=== PATIENT | female | born 1995 | race Caucasian/White ===

== ENCOUNTER → 2017-10-16 15:21 | Outpatient (CLI) | payer OTHER, SELFPAY ==
--- NOTE | 2017-10-16 15:28 | US_ITS ---
US transvaginal HISTORY: ITS.REASON: AMENORRHEA ORDERING PHYSICIAN: Luciano Faith MD PATIENT AGE: 22 years Comparison: None FINDINGS: UTERUS: The uterus measures 7 x 2.7 x 4.2 cm. Combined endometrial thickness is 3 mm. The uterus has an unremarkable appearance RIGHT OVARY: Right ovary measures 3.4 x 2.6 cm and contains a 2.7 x 1.5 cm cyst and other small follicles LEFT OVARY: The left ovary measures 3.4 x 1.6 cm and contains a couple small follicles. CUL-DE-SAC FLUID: No cul-de-sac fluid apparent OTHER FINDINGS: None IMPRESSION: 1. 2.7 cm right ovarian cyst with other small bilateral ovarian follicles. 2. Otherwise negative pelvic ultrasound
== END ==
PROVIDERS: Family Provider Internal Medicine Adolescent Medicine; PCP Internal Medicine Adolescent Medicine; Referring Provider Internal Medicine Adolescent Medicine; Visit Provider Internal Medicine Adolescent Medicine
DX: N91.2 Amenorrhea, unspecified (principal)
CPT/HCPCS: 76830

== ENCOUNTER → 2020-04-23 17:12 | Outpatient (CLI) | payer OTHER, SELFPAY ==
[2020-04-23 18:31] LABS: HCG,Quantitative 18 mIU/ml (0-5.42)
== END ==
PROVIDERS: Visit Provider Nurse Practitioner Family
DX: N91.2 Amenorrhea, unspecified (principal)
CPT/HCPCS: 36415; 84702

== ENCOUNTER → 2020-04-27 15:14 | Outpatient (CLI) | payer OTHER, SELFPAY ==
[2020-04-27 17:22] LABS: HCG,Quantitative 258 mIU/ml (0-5.42)
== END ==
PROVIDERS: Visit Provider Nurse Practitioner Family
DX: Z32.01 Encounter for pregnancy test, result positive (principal)
CPT/HCPCS: 36415; 84702

== ENCOUNTER → 2020-05-20 16:38 | Outpatient (CLI) | payer OTHER, SELFPAY ==
[2020-05-20 17:33] LABS: Basophils # 0.1 K/mm3 (0-0.2); Basophils % 0.4 % (0.1-2.0); Eosinophils # 0.1 K/mm3 (0.0-0.4); Eosinophils % 0.8 % (0.1-12.0); Hematocrit 42.2 % (37.0-47.0); Hemoglobin 13.5 g/dL (12.2-16.2); Lymphocytes # 3.6 K/mm3 (0.7-4.5); Lymphocytes % 28.1 % (10-50); Mean Corpuscular HGB Conc 31.8 g/dL (31.8-35.4); Mean Corpuscular Hemoglobin 28.9 pg (27.0-31.2); Mean Corpuscular Volume 90.7 fl (81-99); Mean Platelet Volume 8.5 fl (7.4-10.4); Monocytes # 0.5 K/mm3 (0.1-1.0); Neutrophils # 8.5 K/mm3 (1.8-7.8); Neutrophils % 66.6 % (37.0-80.0); Platelet Count 268 K/mm3 (142-424); Red Blood Count 4.66 M/mm3 (4.20-5.40); Red Cell Distribution Width 13.4 % (11.5-17.5); White Blood Count 12.8 K/mm3 (4.8-10.8)
[2020-05-22 10:04] LABS: HIV Screen 4th Generation wRfx Non Reactive (Non Reactive)
[2020-05-22 12:46] LABS: Hepatitis B Surface Antigen Negative (Negative); Hepatitis C Antibody <0.1 s/co ratio (0.0-0.9); Rapid Plasma Reagin Ab Titer Non Reactive (NonRea<1:1); Rubella Antibodies, IgG 6.58 index (Immune >0.99)
== END ==
PROVIDERS: Visit Provider Nurse Practitioner Obstetrics & Gynecology
DX: Z34.90 Encounter for supervision of normal pregnancy, unspecified, unspecified trimester (principal)
CPT/HCPCS: 36415; 85025; 86592; 86703; 86762; 86850; 87340; 87380; G0432

== ENCOUNTER → 2020-05-22 12:32 | Outpatient (CLI) | payer OTHER, SELFPAY ==
--- NOTE | 2020-05-22 12:33 | US_ITS ---
PROCEDURE: US OB <= 14 WEEKS FETUS CLINICAL INDICATION: for dates Early Ob ultrasound for dates COMPARISON: No exams were available for comparison FINDINGS: An intrauterine gestational sac is present with a pole with a crown-rump length of 1.31 cm correlating to gestational age of 7 weeks 4 days. heart tones are present with an FHR of 150 BPM. Yolk sac is noted. IMPRESSION: Live IUP at 7 weeks 4 days Estimated due date by Ultrasound is 01/04/2021 Dictated by: Clayton Woods MD 05/22/2020 14:43 Clayton Woods MD in [place] 05/22/2020 14:43
== END ==
PROVIDERS: PCP Internal Medicine Adolescent Medicine; Visit Provider Nurse Practitioner Obstetrics & Gynecology
DX: Z34.90 Encounter for supervision of normal pregnancy, unspecified, unspecified trimester (principal)
CPT/HCPCS: 76801

== ENCOUNTER 2020-07-10 16:02 | Emergency (ER) | payer OTHER, SELFPAY ==
[2020-07-10 16:05] VITALS: BP 141/105; PULSE 84; RESP 16; TEMP 37; O2SAT 98; BMI 33.6
--- NOTE | 2020-07-10 16:21 | HMH.EDUTC ---
[facility] [place] Clinical Impression: Otitis media Qualifiers: Otitis media type: suppurative Chronicity: acute Laterality: bilateral Recurrence: non-recurrent Spontaneous tympanic membrane rupture: without spontaneous rupture Qualified Code(s): H66.003 - Acute suppurative otitis media without spontaneous rupture of ear drum, bilateral Disposition: Home, Self-Care Condition on Discharge: Good Instructions: DI for Otitis Media (Middle Ear Infection)-Child Prescriptions: Fluticasone Propionate [Flonase Allergy Relief NS] 1 spray NS BID 10 Days #1 bot Transmission Status: Pending to [facility] Cefdinir [Omnicef 300mg Capsule] 300 mg PO BID #20 cap Transmission Status: Pending to [facility] Pseudoephedrine HCl [Sudafed 12 Hour 120mg Tab] 1 tab PO BID 5 Days #10 tab Transmission Status: Pending to [facility] Referrals: Yue Navarro APRN [Primary Care Provider] - Time of Disposition: 16:24 Medical Decision Making - Isaac Inquiry Pt receiving controlled substance: No Vital Signs: 07/10/20 16:05 Temperature 98.6 F Temperature Source Oral Pulse Rate [Left Brachial] 84 Respiratory Rate 16 Blood Pressure [Left Arm] 141/105 H Blood Pressure Mean [Left Arm] 117 Blood Pressure Source [Left Arm] Automatic Cuff Blood Pressure Position [Left Arm] Sitting 02 Sat by Pulse Oximetry 98 Oxygen Delivery Method Room Air [facility] [place] - General Stated complaint: both ears pain Time Seen by Provider: 07/10/20 16:21 Mode of Arrival: Ambulatory Source of Information: Patient Limitations: No Limitations Description of Symptoms (Recalled from Triage Doc. by RN): PATIENT C/O BILATERAL EAR PAIN SINCE LAST WEEK HEENT Symptoms (Recalled from RN notes): Yes Resp Symptoms (Recalled from RN notes): No Skin Symptoms (Recalled from RN notes): No MS Symptoms (Recalled from RN notes): No Functional Status (Recalled from RN notes): WNL - History of Present Illness Provider Complaint: Bilateral ear pain X 1 week. No fever. 14 weeks Onset (ago): week(s) (1) Relieving factors: none Exacerbating factors: none Treatments prior to arrival: none - Related Data Home Medications Medication Instructions Recorded Confirmed Loratadine [Claritin 10mg 10 mg PO DAILY 08/30/18 06/16/20 Tablet] vits no.126-ferrous fum 1 tab PO tab 05/19/20 06/16/20 28 mg iron-folic acid 800 mcg tablet sertraline 25 mg tablet 25 mg PO tab 05/19/20 06/16/20 Previous Rx's Medication Instructions Recorded Cefdinir [Omnicef 300mg Capsule] 300 mg PO BID #20 cap 07/10/20 Fluticasone Propionate [Flonase 1 spray NS BID 10 Days #1 bot 07/10/20 Allergy Relief NS] Pseudoephedrine HCl [Sudafed 12 1 tab PO BID 5 Days #10 tab 07/10/20 Hour 120mg Tab] Allergies Allergy/AdvReac Type Severity Reaction Status Date / Time Penicillins Allergy Mild Verified 06/16/20 09:54 - Worker's Comp Is this a Worker's Comp case?: No [facility] History - Hepatitis A Screen Drug use history?: No High risk sexual behaviors?: No History of sexually transmitted infection?: No Currently employed?: No Childcare worker?: No Do you have indoor plumbing?: Yes Do you have electricity?: Yes Attestation statement:: This patient has been screened for Hepatitis A risk factors. I have reviewed the patient's past medical history: Yes 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: Denies:: Cancer, Diabetes Mellitus Type 1, Diabetes Mellitus Type 2, MRSA Laterality Cases: Right: Other Amputation: No Fractures: Yes (RIGHT ANKLE) Comment: Sx on (L) ankle,2004, 2 screws and a plate. fluid drained from brain as a - Social History Smoking Status: Never smoker Alcohol Intake: never Occupational Status: other Family Hx:: Diabetes ROS Obtained: Yes All systems reviewed & no additional complaints - ENT Ears, Nose, Mouth, and Throat: Reports otalgia Physical Exam - General General appearance: alert, in no apparent distress
[2020-07-10 16:26] VITALS: BP 141/101; PULSE 77; RESP 19; TEMP 36.7; O2SAT 99
== END 2020-07-10 16:26 | disposition home or self-care (01) ==
PROVIDERS: Emergency Provider Physician Assistant; PCP Nurse Practitioner Family
DX: H66.003 Acute suppurative otitis media without spontaneous rupture of ear drum, bilateral (principal); Z3A.14 14 weeks gestation of pregnancy
CPT/HCPCS: 99202; G0463

== ENCOUNTER → 2020-08-14 13:38 | Outpatient (CLI) | payer OTHER, SELFPAY ==
--- NOTE | 2020-08-14 13:38 | US_ITS ---
PROCEDURE: US OB /MATERNAL DETAIL CLINICAL INDICATION: US OB COMPLETE-Anatomy Scan COMPARISON: US US OB <= 14 WEEKS FETUS from 05/22/2020 FINDINGS: There is a single live fetus present in breech presentation. heart and body motion is noted. The cervix is closed and measures 4 cm in length. The placenta is anterior and grade 1. Complete survey performed and was unremarkable on the submitted images as in PACS. No discrete anomalies identified on survey imaging by technologist. Active fetus. Three-vessel cord with satisfactory umbilical cord insertion. 4- chamber heart noted. Survey of brain & ventricles Unremarkable. Face and neck survey unremarkable. Diaphragm and chest views unremarkable. Abdomen: Both kidneys noted and unremarkable. Stomach noted and satisfactory. Spine: Survey of the spine satisfactory with no anomalies identified nor imaged. Both arms and legs noted. Amniotic Fluid: Adequate. Maternal adnexa: No significant findings. Measurements: Average ultrasound age 19weeks 5days. Gestational Age 20weeks 2days Estimated due date by ultrasound age 0801/03/2021. Estimated weight 314g BPD = 19weeks 6days OFD = 19weeks HC = 18weeks 4days AC = 20weeks 1day FL = 19weeks 6days Growth Percentile= 21Percent% Heart Rate = 150bpm Cerebellum = 20weeks Humerus = 19weeks 6days HC/AC is 1.06 CI is 0.85 FL/BPD is 0.69 FL/AC is 0.21 IMPRESSION: Live IUP in breech presentation with an average ultrasound age 19 weeks and 5 days. No obvious anomalies. Please see above for detail Dictated by: Clayton Woods MD 08/15/2020 13:04 Clayton Woods MD in [place] 08/15/2020 13:04
== END ==
PROVIDERS: PCP Nurse Practitioner Family; Visit Provider Nurse Practitioner Obstetrics & Gynecology
DX: Z36.0 Encounter for antenatal screening for chromosomal anomalies (principal)
CPT/HCPCS: 76811

== ENCOUNTER 2020-08-19 16:45 | Emergency (ER) | payer OTHER, SELFPAY ==
[2020-08-19 16:45] VITALS: BP 124/64; PULSE 94; RESP 20; TEMP 36.8; O2SAT 98; BMI 34.3
--- NOTE | 2020-08-19 16:58 | HMH.EDUTC ---
[facility] [place] Clinical Impression: Left otitis media Qualifiers: Otitis media type: suppurative Chronicity: acute Recurrence: non-recurrent Spontaneous tympanic membrane rupture: without spontaneous rupture Qualified Code(s): H66.002 - Acute suppurative otitis media without spontaneous rupture of ear drum, left ear Disposition: Home, Self-Care Condition on Discharge: Good Instructions: Middle Ear Infection Additional Instructions: Drink plenty of fluids. Take tylenol or ibuprofen for pain or fever. Take the medications as directed. Follow up with your regular doctor. GO TO THE ER FOR ANY WORSENING SYMPTOMS Prescriptions: predniSONE [Deltasone 10mg tablet] 10 mg PO BID 3 Days #6 tab Transmission Status: Received by [facility] Cefdinir [Omnicef 300mg Capsule] 300 mg PO BID #20 cap Transmission Status: Received by [facility] Referrals: Yue Navarro APRN [Primary Care Provider] - Time of Disposition: 17:26 Medical Decision Making - Medical Records Medical records reviewed: No: I reviewed the patient's medical records. - Isaac Inquiry Pt receiving controlled substance: No Vital Signs: 08/19/20 16:45 08/19/20 17:27 Temperature 98.3 F 98.3 F Temperature Source Oral Pulse Rate 94 H Pulse Rate [Left Brachial] 94 H Respiratory Rate 20 20 Blood Pressure 124/64 Blood Pressure [Left Arm] 124/64 Blood Pressure Mean [Left Arm] 84 Blood Pressure Source [Left Arm] Automatic Cuff Blood Pressure Position [Left Arm] Sitting 02 Sat by Pulse Oximetry 98 Oxygen Delivery Method Room Air [facility] [place] HPI - General Stated complaint: ears Time Seen by Provider: 08/19/20 16:58 - History of Present Illness Provider Complaint: She states that for the past 2 days she has had left ear pain and sinus congestion. - Related Data Home Medications Medication Instructions Recorded Confirmed vits no.126-ferrous fum 1 tab PO DAILY tab 05/19/20 08/19/20 28 mg iron-folic acid 800 mcg tablet Previous Rx's Medication Instructions Recorded Cefdinir [Omnicef 300mg Capsule] 300 mg PO BID #20 cap 08/19/20 predniSONE [Deltasone 10mg tablet] 10 mg PO BID 3 Days #6 tab 08/19/20 Allergies Allergy/AdvReac Type Severity Reaction Status Date / Time Penicillins Allergy Mild Verified 08/18/20 09:52 [facility] History - Hepatitis A Screen Attestation statement:: This patient has been screened for Hepatitis A risk factors. I have reviewed the patient's past medical history: Yes 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: Denies:: Cancer, Diabetes Mellitus Type 1, Diabetes Mellitus Type 2, MRSA Laterality Cases: Right: Other Amputation: No Fractures: Yes (RIGHT ANKLE) Comment: Sx on (L) ankle,2004, 2 screws and a plate. fluid drained from brain as a - Social History Smoking Status: Never smoker Alcohol Intake: never Occupational Status: other Family Hx:: Diabetes ROS Obtained: Yes All systems reviewed & no additional complaints Physical Exam - General General appearance: alert, in no apparent distress - Head Head exam: atraumatic, normocephalic, normal inspection - Eye Eye exam: Present: normal appearance, PERRL, EOMI - ENT ENT exam: Present: mucous membranes moist, normal external ear exam - Expanded ENT Exam TM/Canal exam: Left TM: effusion, Bilateral TM: erythema, bulging Nose exam: Present: sinus tenderness Mouth exam: Present: normal external inspection Teeth exam: Present: normal inspection Throat exam: Present: tonsillar erythema. Absent: tonsillomegaly, tonsillar exudate, R peritonsillar mass, L peritonsillar mass, muffled voice - Neck Neck exam: Present: normal inspection, full ROM, trachea midline. Absent: meningismus, lymphadenopathy - Chest Chest inspection: Present: normal inspection, symmetric chest wall rise. Absent: tenderness - Respiratory Respiratory exam: Present: normal lung sounds bilaterally. Absent: respiratory distres
[2020-08-19 17:27] VITALS: BP 124/64; PULSE 94; RESP 20; TEMP 36.8; O2SAT 98
== END 2020-08-19 17:29 | disposition home or self-care (01) ==
PROVIDERS: Emergency Provider Nurse Practitioner Family; PCP Nurse Practitioner Family
DX: H66.002 Acute suppurative otitis media without spontaneous rupture of ear drum, left ear (principal); Z88.0 Allergy status to penicillin; Z3A.20 20 weeks gestation of pregnancy
CPT/HCPCS: 99202; G0463

== ENCOUNTER 2020-09-05 13:01 | Outpatient (CLI) | payer OTHER, SELFPAY ==
[2020-09-05 13:37] VITALS: BMI 34.3
[2020-09-05 13:38] VITALS: BP 119/90; PULSE 89; RESP 18; TEMP 36.9
[2020-09-05 13:47] LABS: Microscopic, Urine URINE MICROSCOPIC (MICROSCOPIC)
[2020-09-05 13:49] LABS: Appearance,Urine SL CLOUDY (Clear); Bilirubin,Urine Negative (Negative); Blood, Urine Negative (Negative); Color,Urine YELLOW (Yellow); Glucose,Urine (UA) Negative (Negative); Ketones,Urine Negative (Negative); Leukocyte Esterase,Urine 1+ (Negative); Nitrate,Urine Negative (Negative); Protein,Urine Negative (Negative); Urobilinogen,Urine 0.2 EU/dl (0.2)
[2020-09-05 13:58] LABS: Bacteria,Urine 1+ /lpf
[2020-09-05 14:00] LABS: Barbiturates Screen,Urine Negative ng/ml (<200)
[2020-09-05 14:01] LABS: Amphetamine/Metha Screen,Urine Negative ng/ml (<1000); Benzodiazepines Screen,Urine Negative ng/ml (<200)
[2020-09-05 14:02] LABS: Cannabinoid Screen,Urine Negative ng/ml (<50)
[2020-09-05 14:03] LABS: Cocaine Screen,Urine Negative ng/ml (<300); Methadone Screen,Urine Negative ng/ml (<300)
[2020-09-05 14:04] LABS: Opiate Screen,Urine Negative ng/ml (<300)
[2020-09-05 14:05] LABS: Phencyclidine Screen,Urine Negative ng/ml (<25)
[2020-09-05 14:06] VITALS: BMI 34.3
== END 2020-09-05 14:05 | disposition home or self-care (01) ==
LOC: OBOUT 13:02 → OB 13:04
PROVIDERS: PCP Nurse Practitioner Family; Visit Provider Obstetrics & Gynecology
DX: O36.8120 Decreased fetal movements, second trimester, not applicable or unspecified (principal); Z3A.22 22 weeks gestation of pregnancy
CPT/HCPCS: 59025; 80305; 81001; 87086; G0463

== ENCOUNTER 2020-09-05 14:09 | Emergency (ER) | payer OTHER, SELFPAY ==
[2020-09-05 14:10] VITALS: BP 124/87; PULSE 107; RESP 20; TEMP 37; O2SAT 99; BMI 34.2
--- NOTE | 2020-09-05 14:35 | HMH.EDUTC ---
[facility] [place] [facility] [place] Clinical Impression: Strep throat Disposition: Home, Self-Care Condition on Discharge: Good Instructions: DI for Strep Throat, Strep Throat, Cefdinir Additional Instructions: *Monitor Temp, Over the counter Motrin or Tylenol as directed/as needed Tylenol every 4 hours and Motrin every 6 hours (as long as your family doctor has told you that you can take it) for fever or pain. and straight to ER if unable to lower temp less than 101.0 after medication given *Warm salt water gargles may help to soothe the throat *Throat Lozenges *Warm fluids like tea with honey may help to soothe the throat *Sleep elevated *Humidifier/Vaporizer *If you did not take Penicillin shot or was unable to, start taking antibiotic immediately and make sure that you take it for the FULL length of time although you should start to feel better in 24-48 hours *change toothbrush and toothpaste 24-48 hours after starting to take antibiotics so you do not reinfect yourself Monitor Temp. Tylenol and/or Ibuprofen as needed. ER if fever is no less than 101 despite alternating Tylenol and Ibuprofen * Encourage fluids, water, Gatorade, powerade, pedialyte if infant/toddler/or child *Cold fluids, popsicles and ice cream may feel good on his throat Follow up IMMEDIATELY for new or worsening symptoms or no Noticeable improvement over the next 48-72 hours. 911 for difficulty breathing or swallowing Prescriptions: Cefdinir [Omnicef 300mg Capsule] 300 mg PO BID #20 cap Transmission Status: Pending to [facility] Referrals: Yue Navarro APRN [Primary Care Provider] - As needed Time of Disposition: 14:48 Medical Decision Making - Isaac Inquiry Pt receiving controlled substance: No Isaac was queried for this patient: No Vital Signs: 09/05/20 14:10 Temperature 98.6 F Temperature Source Oral Pulse Rate [Right Brachial] 107 H Respiratory Rate 20 Blood Pressure [Right Arm] 124/87 Blood Pressure Mean [Right Arm] 99 Blood Pressure Source [Right Arm] Automatic Cuff Blood Pressure Position [Right Arm] Sitting 02 Sat by Pulse Oximetry 99 Oxygen Delivery Method Room Air - Lab Data Lab results reviewed: Yes: I reviewed the patient's lab results. Medical Decision Narrative: Patient states that she has taken Cefdinir in the past without complications or reactions Medication verified safe during by pharmacy [facility] [place] [facility] [place] - General Stated complaint: ear pain Time Seen by Provider: 09/05/20 14:35 Mode of Arrival: Ambulatory Source of Information: Patient Limitations: No Limitations Description of Symptoms (Recalled from Triage Doc. by RN): PATIENT C/O BILATERAL EAR PAIN. STATES PAIN IS WORSE ON LEFT SIDE AND IS ALSO CAUSING HER THROAT TO HURT HEENT Symptoms (Recalled from RN notes): Yes Resp Symptoms (Recalled from RN notes): No Skin Symptoms (Recalled from RN notes): No MS Symptoms (Recalled from RN notes): No Functional Status (Recalled from RN notes): WNL - History of Present Illness Provider Complaint: Patient states that she is 22wks OB and has been having pain in her ears and worse on her left States that she seen her PCP yesterday and he looked at her ears and told her she had fluid but no infection States that pain is worse today and hurts into her throat when she swallows and wanted to get them looked at again - Related Data Previous Rx's Medication Instructions Recorded Cefdinir [Omnicef 300mg Capsule] 300 mg PO BID #20 cap 09/05/20 Allergies Allergy/AdvReac Type Severity Reaction Status Date / Time Penicillins Allergy Mild Verified 08/18/20 09:52 - Worker's Comp Is this a Worker's Comp case?: No [facility] History - Hepatitis A Screen Drug use history?: No High risk sexual behaviors?: No History of sexually transmitted infection?: No Currently employed?: No Childcare worker?: No Do you have indoor plumbing?: Yes Do you have electricity?: Yes Attestation statement:: This patient h
[2020-09-05 14:42] LABS: UTC Strep Screen (Rapid) Positive (Negative)
[2020-09-05 14:48] VITALS: BP 124/87; PULSE 107; RESP 20; TEMP 37; O2SAT 99
== END 2020-09-05 14:50 | disposition home or self-care (01) ==
PROVIDERS: Emergency Provider Nurse Practitioner; PCP Nurse Practitioner Family
DX: J02.0 Streptococcal pharyngitis (principal); Z3A.22 22 weeks gestation of pregnancy; Z88.0 Allergy status to penicillin
CPT/HCPCS: 87880; 99202; G0463

== ENCOUNTER → 2020-10-03 07:55 | Outpatient (CLI) | payer OTHER, SELFPAY ==
[2020-10-03 08:21] LABS: Glucose,Fasting 90 mg/dl (74-100)
[2020-10-03 09:37] LABS: Glucose 1 Hour 166 mg/dL (74-100)
== END ==
PROVIDERS: Visit Provider Nurse Practitioner Obstetrics & Gynecology
DX: Z34.90 Encounter for supervision of normal pregnancy, unspecified, unspecified trimester (principal)
CPT/HCPCS: 82951

== ENCOUNTER → 2020-10-17 07:06 | Outpatient (CLI) | payer OTHER, SELFPAY ==
[2020-10-17 08:27] LABS: Glucose,Fasting 89 mg/dl (74-100)
[2020-10-17 09:48] LABS: Glucose 1 Hour 190 mg/dL (74-100)
[2020-10-17 10:20] LABS: Glucose 2 Hour 223 mg/dL (74-100)
[2020-10-17 12:22] LABS: Glucose 3 Hour 118 mg/dL (74-100)
== END ==
PROVIDERS: Visit Provider Nurse Practitioner Obstetrics & Gynecology
DX: O99.814 Abnormal glucose complicating childbirth (principal); Z34.90 Encounter for supervision of normal pregnancy, unspecified, unspecified trimester
CPT/HCPCS: 82951

== ENCOUNTER 2020-10-23 19:21 | Outpatient (CLI) | payer OTHER, SELFPAY ==
[2020-10-23 19:35] VITALS: BMI 36.5
[2020-10-23 19:43] LABS: Microscopic, Urine URINE MICROSCOPIC (MICROSCOPIC)
[2020-10-23 19:44] LABS: Appearance,Urine CLOUDY (Clear); Bilirubin,Urine Negative (Negative); Blood, Urine Negative (Negative); Color,Urine YELLOW (Yellow); Glucose,Urine (UA) Negative (Negative); Ketones,Urine Negative (Negative); Leukocyte Esterase,Urine 1+ (Negative); Nitrate,Urine Negative (Negative); Protein,Urine Negative (Negative); Specific Gravity, Urine 1.025 (1.005-1.030); Urobilinogen,Urine 0.2 EU/dl (0.2)
[2020-10-23 19:52] VITALS: BP 142/94; PULSE 111; RESP 18; TEMP 36.7; O2SAT 98; BMI 36.5
[2020-10-23 19:55] LABS: Amorphous Sediment,Urine 1+ /lpf; Bacteria,Urine 2+ /lpf; Benzodiazepines Screen,Urine Negative ng/ml (<200)
[2020-10-23 19:56] LABS: Amphetamine/Metha Screen,Urine Negative ng/ml (<1000)
[2020-10-23 19:57] LABS: Barbiturates Screen,Urine Negative ng/ml (<200); Cannabinoid Screen,Urine Negative ng/ml (<50)
[2020-10-23 19:58] LABS: Cocaine Screen,Urine Negative ng/ml (<300); Methadone Screen,Urine Negative ng/ml (<300)
[2020-10-23 19:59] LABS: Opiate Screen,Urine Negative ng/ml (<300)
[2020-10-23 20:00] LABS: Phencyclidine Screen,Urine Negative ng/ml (<25)
== END 2020-10-23 20:36 | disposition home or self-care (01) ==
LOC: OBOUT 19:25 → OB 19:25
PROVIDERS: PCP Nurse Practitioner Obstetrics & Gynecology; Visit Provider Obstetrics & Gynecology
DX: O36.8130 Decreased fetal movements, third trimester, not applicable or unspecified (principal); Z3A.29 29 weeks gestation of pregnancy
CPT/HCPCS: 59025; 80305; 81001; 87086; G0463

== ENCOUNTER 2020-11-08 10:42 | Emergency (ER) | payer OTHER, SELFPAY ==
[2020-11-08 10:49] VITALS: BP 125/99; PULSE 119; RESP 12; TEMP 36.9; O2SAT 99; BMI 36.5
--- NOTE | 2020-11-08 11:04 | HMH.EDUTC ---
[facility] [place] Clinical Impression: Otitis media Qualifiers: Otitis media type: suppurative Chronicity: acute Laterality: bilateral Recurrence: non-recurrent Spontaneous tympanic membrane rupture: without spontaneous rupture Qualified Code(s): H66.003 - Acute suppurative otitis media without spontaneous rupture of ear drum, bilateral Sinusitis Qualifiers: Sinusitis location: unspecified location Chronicity: acute Recurrence: non-recurrent Qualified Code(s): J01.90 - Acute sinusitis, unspecified Disposition: Home, Self-Care Condition on Discharge: Good Instructions: Middle Ear Infection, DI for Sinusitis Additional Instructions: Drink plenty of fluids. Take tylenol or ibuprofen for pain or fever. Take the medications as directed. Follow up with your regular doctor. 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 Please call Dr. Arechiga's office and let them know how you are doing. GO TO THE ER FOR ANY WORSENING SYMPTOMS Prescriptions: Azithromycin [Z-Pb 250mg Tab*] 250 mg PO UD DOSE PK #6 tab Transmission Status: Received by [facility] Referrals: Yue Navarro APRN [Primary Care Provider] - Time of Disposition: 11:07 Medical Decision Making - Medical Records Medical records reviewed: No: I reviewed the patient's medical records. - Isaac Inquiry Pt receiving controlled substance: No Vital Signs: 11/08/20 10:49 11/08/20 11:13 Temperature 98.5 F 98.5 F Temperature Source Oral Pulse Rate 108 H Pulse Rate [Left] 119 H Respiratory Rate 12 14 Blood Pressure 127/93 H Blood Pressure [Right Arm] 125/99 H Blood Pressure Mean [Right Arm] 107 02 Sat by Pulse Oximetry 99 - Lab Data Lab results reviewed: Yes: I reviewed the patient's lab results. Lab Results 11/08/20 11:07: Strep Scn Rapid Clinic Negative Orders (Tests/Meds): ORDERS Category Date Time Status Strep Screen Confirmation Stat Micro 11/08/20 11:07 Received [facility] [place] - General Stated complaint: ear and throat pain Time Seen by Provider: 11/08/20 11:04 Mode of Arrival: Ambulatory Source of Information: Patient Limitations: No Limitations Description of Symptoms (Recalled from Triage Doc. by RN): pt c/o ear aches and a sore throat. HEENT Symptoms (Recalled from RN notes): Yes (sore throat and ear aches) Resp Symptoms (Recalled from RN notes): No Skin Symptoms (Recalled from RN notes): No MS Symptoms (Recalled from RN notes): No Functional Status (Recalled from RN notes): na - History of Present Illness Provider Complaint: She states that for the past 2 days she has been having bilateral pain and pressure. She has also had sinus congestion and post nasal drainage. She is 31 weeks . - Related Data Home Medications Medication Instructions Recorded Confirmed fluticasone propionate 50 2 spray INTRANASAL g 09/15/20 11/05/20 mcg/actuation nasal spray,suspension ferrous sulfate 325 mg (65 mg 325 mg PO DAILY 10/14/20 11/05/20 iron) tablet prenat.vits,david,[id number] 1 tab PO DAILY 10/14/20 11/05/20 blood-glucose meter See Rx Instructions .ROUTE 11/05/20 11/05/20 .MEDSUPPLY #1 each lancets 33 gauge See Rx Instructions .ROUTE 11/05/20 11/05/20 .MEDSUPPLY #100 each Previous Rx's Medication Instructions Recorded blood sugar diagnostic See Rx Instructions .ROUTE 10/27/20 .MEDSUPPLY #10 each blood-glucose meter See Rx Instructions .ROUTE 10/27/20 .MEDSUPPLY #1 each lancets 23 gauge See Rx Instructions .ROUTE 10/27/20 .MEDSUPPLY #25 each blood sugar diagnostic See Rx Instructions .ROUTE #100 11/05/20 each Azithromycin [Z-Pb 250mg Tab*] 250 mg PO UD DOSE PK #6 tab 11/08/20 Allergies Allergy/AdvReac Type Severity Reaction Status Date / Time Penicillins Allergy Mild Verified 10/14/20 10:11 - Worker's Comp Is this a Worker's Comp case?: No [facility] History - Hepatitis A Screen Drug use history?: No High risk sexual behaviors?: No History of sexually t
[2020-11-08 11:13] VITALS: BP 127/93; PULSE 108; RESP 14; TEMP 36.9
[2020-11-08 11:14] LABS: UTC Strep Screen (Rapid) Negative (Negative)
== END 2020-11-08 11:15 | disposition home or self-care (01) ==
PROVIDERS: Emergency Provider Nurse Practitioner Family; PCP Nurse Practitioner Family
DX: H66.003 Acute suppurative otitis media without spontaneous rupture of ear drum, bilateral (principal); J01.90 Acute sinusitis, unspecified; Z3A.31 31 weeks gestation of pregnancy
CPT/HCPCS: 87880; 99202; G0463

== ENCOUNTER → 2020-11-30 16:54 | Outpatient (CLI) | payer OTHER, SELFPAY | PROVIDERS: Visit Provider Nurse Practitioner Obstetrics & Gynecology | DX: Z34.90 Encounter for supervision of normal pregnancy, unspecified, unspecified trimester (principal); Z3A.35 35 weeks gestation of pregnancy | CPT/HCPCS: 86403 ==

== ENCOUNTER 2020-12-16 19:24 | Emergency (ER) | payer OTHER, SELFPAY ==
[2020-12-16 19:43] VITALS: BP 172/93; PULSE 119; RESP 22; TEMP 36.9; O2SAT 99; BMI 37.5
--- NOTE | 2020-12-16 20:33 | HMH.EDUTC ---
[facility] [place] Clinical Impression: Otitis media Qualifiers: Otitis media type: unspecified Laterality: left Qualified Code(s): H66.92 - Otitis media, unspecified, left ear Disposition: Home, Self-Care Condition on Discharge: Good Instructions: Cefdinir, Middle Ear Infection Additional Instructions: *Monitor Temp, Over the counter Tylenol as directed/as needed Tylenol every 4 hours (as long as your family doctor has told you that you can take it) for fever or pain. and straight to ER if unable to lower temp less than 101.0 after medication given *Take medication as prescribed *Sleep elevated *Humidifier/Vaporizer Follow up IMMEDIATELY for new or worsening symptoms or no Noticeable improvement over the next 48-72 hours. 911 for difficulty breathing or swallowing Prescriptions: Cefdinir [Omnicef 300mg Capsule] 300 mg PO BID #20 cap Transmission Status: Pending to [facility] Referrals: Yue Navarro APRN [Primary Care Provider] - As needed Medical Decision Making - Isaac Inquiry Pt receiving controlled substance: No Isaac was queried for this patient: No Vital Signs: 12/16/20 19:43 Temperature 98.5 F Temperature Source Oral Pulse Rate [Left] 119 H Respiratory Rate 22 Blood Pressure [Right Radial Artery] 172/93 H Blood Pressure Mean [Right Radial Artery] 119 02 Sat by Pulse Oximetry 99 Medical Decision Narrative: Medication discussed with pharmacy to make sure medication is baby safe [facility] [place]PI - General Stated complaint: ear pain in both ears Time Seen by Provider: 12/16/20 20:33 Mode of Arrival: Ambulatory Source of Information: Patient Limitations: No Limitations Description of Symptoms (Recalled from Triage Doc. by RN): pt c/o bilateral ear aches. pt is 37 wks and is scheduled for c/s Symptoms (Recalled from RN notes): Yes (bilateral ear aches) Resp Symptoms (Recalled from RN notes): No Skin Symptoms (Recalled from RN notes): No MS Symptoms (Recalled from RN notes): No Functional Status (Recalled from RN notes): na - History of Present Illness Provider Complaint: Patient states that she is scheduled for on Monday States that she has been having bilateral ear pain for over a week and it has continued to get worse States that tonight her ears was throbbing so she came in to get them checked - Related Data Home Medications Medication Instructions Recorded Confirmed fluticasone propionate 50 2 spray INTRANASAL g 09/15/20 12/15/20 mcg/actuation nasal spray,suspension ferrous sulfate 325 mg (65 mg 325 mg PO DAILY 10/14/20 12/15/20 iron) tablet prenat.vits,david,[id number] 1 tab PO DAILY 10/14/20 12/15/20 blood-glucose meter See Rx Instructions .ROUTE 11/05/20 12/15/20 .MEDSUPPLY #1 each lancets 33 gauge See Rx Instructions .ROUTE 11/05/20 12/15/20 .MEDSUPPLY #100 each metformin 500 mg tablet 500 mg PO tab 11/19/20 12/15/20 acetone (urine) test See Rx Instructions .ROUTE 12/03/20 12/15/20 .MEDSUPPLY #25 each insulin detemir U-100 100 unit/mL ml SQ 12/03/20 12/15/20 (3 mL) subcutaneous pen pen needle, diabetic 32 gauge x See Rx Instructions .ROUTE 12/03/20 12/15/20 5/32 .MEDSUPPLY #50 each Previous Rx's Medication Instructions Recorded blood sugar diagnostic See Rx Instructions .ROUTE 10/27/20 .MEDSUPPLY #10 each blood-glucose meter See Rx Instructions .ROUTE 10/27/20 .MEDSUPPLY #1 each lancets 23 gauge See Rx Instructions .ROUTE 10/27/20 .MEDSUPPLY #25 each blood sugar diagnostic See Rx Instructions .ROUTE #100 11/05/20 each Azithromycin [Z-Pb 250mg Tab*] 250 mg PO UD DOSE PK #6 tab 11/08/20 Cefdinir [Omnicef 300mg Capsule] 300 mg PO BID #20 cap 12/16/20 Allergies Allergy/AdvReac Type Severity Reaction Status Date / Time Penicillins Allergy Mild Verified 12/16/20 19:46 - Worker's Comp Is this a Worker's Comp case?: No [facility] History - Hepatitis A Screen Drug use history?: No
[2020-12-16 21:09] VITALS: BP 0/0; PULSE 116; RESP 20; TEMP 36.6
== END 2020-12-16 21:09 | disposition home or self-care (01) ==
PROVIDERS: Emergency Provider Nurse Practitioner; PCP Nurse Practitioner Family
DX: H66.92 Otitis media, unspecified, left ear (principal); Z3A.37 37 weeks gestation of pregnancy
CPT/HCPCS: 99202; G0463

== ENCOUNTER → 2020-12-19 09:06 | Outpatient (CLI) | payer OTHER, SELFPAY ==
[2020-12-19 10:03] LABS: Basophils % 0.4 % (0.1-2.0); Eosinophils % 0.4 % (0.1-12.0); Hematocrit 41.8 % (37.0-47.0); Hemoglobin 13.9 g/dL (12.2-16.2); Lymphocytes # 2.2 K/mm3 (0.7-4.5); Lymphocytes % 24.6 % (10-50); Mean Corpuscular HGB Conc 33.2 g/dL (31.8-35.4); Mean Corpuscular Hemoglobin 29.5 pg (27.0-31.2); Mean Corpuscular Volume 88.8 fl (81-99); Mean Platelet Volume 9.8 fl (7.4-10.4); Monocytes # 0.4 K/mm3 (0.1-1.0); Monocytes % 4.7 % (1.7-9.3); Neutrophils # 6.2 K/mm3 (1.8-7.8); Neutrophils % 69.8 % (37.0-80.0); Platelet Count 243 K/mm3 (142-424); Red Blood Count 4.71 M/mm3 (4.20-5.40); White Blood Count 8.9 K/mm3 (4.8-10.8)
[2020-12-19 11:44] LABS: Anion Gap 14.6 mEq/L (5-15); Blood Urea Nitrogen 6 mg/dl (7-17); Carbon Dioxide 21 mmol/L (22.0-30.0); Chloride 107 mmol/L (98-107); Estimated Glomerular Filt Rate 191 ml/min (>60); GFR (African American) 232 ML/MIN (>60); Glucose 81 mg/dl (74-100); Potassium 4.6 mmoL/L (3.5-5.1); Sodium 138 mmol/L (136-145)
== END ==
PROVIDERS: Visit Provider Nurse Practitioner Obstetrics & Gynecology
DX: Z01.818 Encounter for other preprocedural examination (principal); Z11.52 Encounter for screening for COVID-19; Z34.90 Encounter for supervision of normal pregnancy, unspecified, unspecified trimester
CPT/HCPCS: 36415; 80048; 85025; U0003

== ENCOUNTER 2020-12-21 04:47 | Inpatient (IN) | payer OTHER, SELFPAY ==
[2020-12-21] VITALS (8 sets, daily range): BP systolic 108–132; BP diastolic 56–82; PULSE 101–117; RESP 12–18; TEMP 36.6–37.2; O2SAT 97–98; BMI 37.9
[2020-12-21 05:53] LABS: Microscopic, Urine URINE MICROSCOPIC (MICROSCOPIC)
[2020-12-21 06:25] LABS: Appearance,Urine CLEAR (Clear); Bilirubin,Urine Negative (Negative); Blood, Urine Negative (Negative); Color,Urine YELLOW (Yellow); Glucose,Urine (UA) Negative (Negative); Ketones,Urine Negative (Negative); Leukocyte Esterase,Urine TRACE (Negative); Nitrate,Urine Negative (Negative); Protein,Urine Negative (Negative); Specific Gravity, Urine 1.025 (1.005-1.030); Urobilinogen,Urine 0.2 EU/dl (0.2)
[2020-12-21 06:38] LABS: Barbiturates Screen,Urine Negative ng/ml (<200); Benzodiazepines Screen,Urine Negative ng/ml (<200)
[2020-12-21 06:39] LABS: Amphetamine/Metha Screen,Urine Negative ng/ml (<1000)
[2020-12-21 06:41] LABS: Amorphous Sediment,Urine Trace /lpf; Cannabinoid Screen,Urine Negative ng/ml (<50); Cocaine Screen,Urine Negative ng/ml (<300)
[2020-12-21 06:42] LABS: Methadone Screen,Urine Negative ng/ml (<300)
[2020-12-21 06:56] LABS: Opiate Screen,Urine Negative ng/ml (<300); Phencyclidine Screen,Urine Negative ng/ml (<25)
[2020-12-21 07:55] LABS: Cord Blood PH 7.27 (7.35-7.45)
--- NOTE | 2020-12-21 08:24 | HMH.OPNOTE ---
Date of procedure: 12/21/20 Pre-op Diagnosis:: Term , gestational diabetes on insulin, pelvic disproportion, high head at term Post-op Diagnosis:: Term , gestational diabetes on insulin, pelvic disproportion, high had at term, uterine atony Procedure performed:: Primary lower segment transverse section, B-Foster suture Surgeon:: Wolf Arechiga MD Emr Specialist(s):: Tessie Bangura COTTON BROKER:: Eliceo Jovel Anesthesia: spinal Estimated blood loss (mL): 800 Clinical Note:: She is a 25-year-old 1 para 0 at 38 weeks gestational age. She has gestational diabetes and has been taking Metformin as well as Lantus at night. Her sugars have been slightly elevated most recently. She was examined in my office and the head was very high and her pelvis was extremely narrow. After having discussed the risk and benefits we elected to perform a primary lower segment transverse section. Operative findings:: She delivered a liveborn male child at 7:49 AM on the morning of December 21, 2020. The baby had Apgars of 8 at 1 minute and 9 at 5 minutes. pH was 7.27. Ovaries and tubes appeared normal. After delivery of despite receiving IV oxytocin her uterus was still quite boggy. We elected to place a B. Foster suture. Operative note:: She was taken to the operating room where spinal anesthesia was found be adequate. She was prepped and draped in normal sterile fashion in the supine position with a leftward tilt. A Swartz catheter was in the bladder. A Pfannenstiel skin incision was made with knife then carried through to the underlying layer of fascia with cautery. The fascia was opened in the midline with cautery and extended laterally using Delacruz scissors. Wu clamps were applied to the superior aspect of the fascial incision which was tented up and the underlying rectus muscles dissected off using cautery. The [place] clamps were then applied to the inferior aspect of the fascial incision which in a similar fashion was tented up and the underlying rectus muscles dissected off using cautery. The rectus muscles were then in the midline, the peritoneum identified, and entered sharply with Metzenbaum scissors. This incision was then extended superiorly and inferiorly with cautery. We then inserted an Servando retractor. We had good visualization of the bladder inferiorly. The bladder peritoneum was then opened in the midline and extended laterally using Metzenbaum scissors. A bladder flap was created digitally. Transverse incision was made through the uterine muscle to the amnion. This incision was then extended laterally using fingers traction. The amnion was entered sharply with knife. There was clear amniotic fluid. The 's head was then delivered atraumatically. This was followed by the anterior shoulder and the rest of the infant's body atraumatically. The oropharynx and nasopharynx were bulb suctioned. The was then handed off to Dr. Grajeda who assigned Apgars of 8 at 1 minute and 9 at 5 minutes. We then obtained cord blood as well as cord pH. The pH was 7.27. Using gentle traction on the cord and countertraction on the fundus I was able to easily deliver the placenta intact. It had a normal three-vessel cord. The uterus was then cleared of clots and debris . The uterine incision was then closed using running 0 Vicryl suture in a locked fashion. A second layer of the same suture was used to imbricate the first layer. The bladder peritoneum was then closed using running 2-0 Vicryl suture in a locked fashion. The gutters and cul-de-sac were then cleared of clots and debris . Once again hemostasis was assured. The uterus is quite boggy so we elected to perform a B. Foster suture. Using a #1 Vicryl suture I took a large bite anterior. I then took 2 bites posteriorly and came back over the uterus anteriorly. The suture was cinched down and tied. I placed a large piece of Surgicel along the uterine inc
--- NOTE | 2020-12-21 08:30 | HMH.ANESCL ---
[facility] Anesthesia Checklist - Structural Data Admitted From: Inpatient Planned Operative Procedure/s: c/section Consent for Planned Operative Procedure(s) Verified: Yes - Airway Assessment C-Spine Mobility Assessed: Yes TMJ Mobility Assessed: Yes Dentition: Good Dentition - Neurological Assessment Level of Consciousness: Awake, Alert, Appropriate - Anesthesia Plan Anesthesia Risk discussed: Yes Anesthesia Plan: Verified ASA Class: II Anesthesia Type: Spinal [facility] History I have reviewed the patient's past medical history: Yes 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: Denies:: Cancer, Diabetes Mellitus Type 1, Diabetes Mellitus Type 2, MRSA *Have you ever received a pneumonia vaccine?: No *Have you received a flu vaccine this season?: Yes Anesthesia experience/problems:: none Laterality Cases: Right: Other Other Surgeries: Yes: Other. No: Amputation: No Fractures: Yes (RIGHT ANKLE) - *Social History Smoking Status: Never smoker Alcohol Intake: never Substance Use Type: denies use *Occupational Status:: employed *Travel in the last 8 weeks: None Family Hx:: Diabetes Para: 0
--- NOTE | 2020-12-21 08:31 | P.PN_ITS ---
[facility] Anesthesia Record Part I Intake, IV Amount: 150 Estimated blood loss (mL): 950 Urine output (mL): 250 Blood Pressure: 122/76 SaO2: 97 Pulse Rate: 112 Respiratory Rate: 12 Temperature: 98 F Patient is:: Awake, Stable Stable to PACU at:: 08:25
--- NOTE | 2020-12-21 08:33 | HMH.OBAPHP ---
OB - H&P: HPI Antepartum - History of Present Illness Chief complaint: Term , gestational diabetes on insulin, pelvic disproportion - History of Present Criteria for establishing EDC:: LMP confirmed by 1st trimester US care: good care Ultrasounds: normal 1st trimester US, normal mid trimester US Obstetrical complications: gestational diabetes Medical complications: none - Labs Blood type: AB (+) positive Rubella: immune RPR/VDRL: nonreactive GBS status: negative HBsAG: negative [facility] History I have reviewed the patient's past medical history: Yes 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: Denies:: Cancer, Diabetes Mellitus Type 1, Diabetes Mellitus Type 2, MRSA *Have you ever received a pneumonia vaccine?: No *Have you received a flu vaccine this season?: Yes Anesthesia experience/problems:: none Laterality Cases: Right: Other Other Surgeries: Yes: Other. No: Amputation: No Fractures: Yes (RIGHT ANKLE) - *Social History Smoking Status: Never smoker Alcohol Intake: never Substance Use Type: denies use *Occupational Status:: employed *Travel in the last 8 weeks: None Family Hx:: Diabetes Para: 0 Review of Systems - Review of Systems Review of systems:: pertinent systems reviewed and negative unless documented below Meds Home Medications Medication Instructions Recorded Confirmed Type fluticasone propionate 50 1 spray NS DAILY g 09/15/20 12/21/20 History mcg/actuation nasal spray,suspension ferrous sulfate 325 mg (65 mg 325 mg PO DAILY 10/14/20 12/21/20 History iron) tablet prenat.vits,david,jer-aurv-sleee 1 tab PO DAILY 10/14/20 12/21/20 History metformin 500 mg tablet 500 mg PO BIDWMEAL tab 11/19/20 12/21/20 History insulin detemir U-100 100 unit/mL 6 units SQ HS 12/03/20 12/21/20 History (3 mL) subcutaneous pen Cefdinir [Omnicef 300mg Capsule] 300 mg PO BID 12/21/20 12/21/20 History Allergies Allergy/AdvReac Type Severity Reaction Status Date / Time Penicillins Allergy Mild Verified 12/16/20 19:46 OB - H&P: Exam - Physical Exam Vital signs: Temp Pulse Resp BP 98 F 112 H 12 122/76 12/21/20 08:32 12/21/20 08:32 12/21/20 08:32 12/21/20 08:32 - Constitutional no acute distress - Routine HEENT Exam Head: Present: normocephalic Eye: Present: EOMI, PERRL ENT: Present: mucous membranes moist - Routine Neck Exam Present: supple, full ROM - Routine Respiratory Exam Absent: accessory muscle use (good air entry bilaterally), respiratory distress, wheezes, crackles - Routine Cardiovascular Exam Present: RRR. Absent: murmur - Routine Abdominal Exam Present: soft, normoactive bowel sounds. Absent: tenderness, distended, guarding - Routine Rectal Exam Patient deferred: visual exam, digital exam - Routine Exam Patient deferred: external exam, groin exam, perineal exam - Routine Extremities Exam Present: full ROM. Absent: cyanosis, edema - Routine Skin Exam Present: intact. Absent: cyanosis - Routine Neurological Exam Present: alert, oriented X3 - Routine Psychiatric Exam Present: normal affect OB - Results - Labs Labs: Urine 12/21/20 Range/Units 05:40 Urine Color Yellow (Yellow) Urine Appearance Clear (Clear) Urine pH 6.0 (5.0-8.5) Ur Specific [place] 1.025 (1.005-1.030) Urine Protein Negative (Negative) Urine Glucose (UA) Negative (Negative) OB - A/P Antepartum (1) pelvic disproportion delivered Status: Acute (2) High head at term, delivered Status: Acute (3) Delivery by section of full-term Status: Acute (4) Gestational diabetes mellitus (GDM) Status: Acute - Additional Plan Planning to breastfeed?: Yes Plan: other Additional Information:: She is here for primary lower segment transverse section.
[2020-12-21 13:44] LABS: Microscopic,Cath URINE MICROSCOPIC (MICROSCOPIC)
[2020-12-21 13:48] LABS: Appearance,Urine/Cath CLEAR (Clear); Bilirubin,Cath Negative (Negative); Blood, Urine/Cath Negative (Negative); Color,Urine/Cath YELLOW (Yellow); Glucose,Urine/Cath (UA) Negative (Negative); Ketones,Urine/Cath Negative (Negative); Leukocyte Esterase,Cath Negative (Negative); Nitrate,Cath Negative (Negative); Protein,Urine/Cath Negative (Negative); Urobilinogen,Cath 0.2 EU/dl (0.2)
[2020-12-21 14:16] LABS: WBC,Urine/Cath Occasional #/hpf (0-3)
[2020-12-21 15:18] LABS: POC Glucose,Bedside 85 (70-110)
--- NOTE | 2020-12-21 16:04 | P.CONPHA_ITS ---
[facility] Pharmacy VTE Monitoring - Patient Demographics Admission date: 12/21/20 Report Date: 12/21/20 Time: 16:04 Allergies/Adverse Reactions: Patient Allergies Penicillins Allergy (Mild, Verified 12/16/20 19:46) Height: 1.6 m Weight: 97.069 kg Patient Problems: Current Active Problems pelvic disproportion delivered (Acute) High head at term, delivered (Acute) Delivery by section of full-term (Acute) Gestational diabetes mellitus (GDM) (Acute) - Prophylaxis VTE Prophylaxis Ordered?: Yes Types of VTE Prophylaxis: IPCS Thigh High Location of Applied Device: Bilateral Lower Extremeties
[2020-12-22 06:14] LABS: Hemoglobin 11.1 g/dL (12.2-16.2)
--- NOTE | 2020-12-22 07:52 | P.PN_ITS ---
[facility] Anesthesia Record Part II Discharge Time: 08:55 Destination: Obstetric PACU nurse assessment reviewed?: Yes Patient Condition:: Good Anesthesia Complications:: None Swallowing reflex intact?: Yes Cyanosis?: No Blood Pressure: 112/65 Pulse Rate: 108 Temperature: 98.9 F Mental Status: Alert & Oriented Pain level:: 0 Nausea and/or vomitting:: None Intake, IV Amount: 0
[2020-12-22 07:53] VITALS: BP 112/65; PULSE 108; TEMP 37.2
[2020-12-22 08:00] VITALS: BP 112/76; PULSE 98; RESP 20; TEMP 36.6; O2SAT 97
--- NOTE | 2020-12-22 09:47 | HMH.ACPN2 ---
Internal Medicine - PN: Subj *Date: 12/22/20 *Time: 09:47 Interval history: She is doing well. She is eating and drinking and ambulating. Her pain is reasonably well controlled. Exam Vital signs and Labs for Last 24 Hours: Temp Pulse Resp BP Pulse Ox 98.9 F 108 H 16 112/65 98 12/22/20 07:53 12/22/20 07:53 12/21/20 16:03 12/22/20 07:53 12/21/20 16:03 Laboratory Results - last 24 hr 12/21/20 07:30: Urine Color Yellow, Urine Appearance Clear, Urine pH 6.0, Ur Specific [place] 1.010, Urine Protein Negative, Urine Glucose (UA) Negative, Urine Ketones Negative, Urine Blood Negative, Urine Nitrate Negative, Urine Bilirubin Negative, Urine Urobilinogen 0.2, Ur Leukocyte Esterase Negative, Urine RBC None, Urine WBC Occasional, Ur Squamous Epith Cells None, Urine Bacteria None 12/21/20 15:10: POC Glucose 85 12/22/20 05:39: Hgb 11.1 L, Hct 34.0 L I & O for Last 24 hours: Intake & Output 12/19/20 12/20/20 12/21/20 12/22/20 11:59 11:59 11:59 11:59 Intake Total 150 / 150 0 / 0 Balance 150 / 150 0 / 0 Weight 214 lb Microbiology Reports for the Last 24 Hours: Microbiology 12/21/20 05:40 Urine,Clean Catch Urine Culture - Preliminary NO GROWTH AFTER 24 HOURS - Constitutional no acute distress - *Routine HEENT Exam Head: Present: normocephalic Eye: Present: EOMI, PERRL ENT: Present: mucous membranes moist Assessment and Plan (1) pelvic disproportion delivered Status: Acute Category: Medical Code(s): O33.9 - Maternal care for disproportion, unspecified (2) High head at term, delivered Status: Acute Category: Medical Code(s): O32.4XX0 - Maternal care for high head at term, not applicable or unspecified (3) Delivery by section of full-term Status: Acute Category: Medical Code(s): O82 - Encounter for delivery without indication (4) Gestational diabetes mellitus (GDM) Status: Acute Qualifiers: Gestational diabetes mellitus control: insulin-controlled Trimester: third trimester Qualified Code(s): O24.414 - Gestational diabetes mellitus in , insulin controlled Category: Medical Code(s): O24.419 - Gestational diabetes mellitus in , unspecified control - Assessment and plan all Dx Assessment and Plan for all problems:: She continues to do well 1 day post . Her pain is reasonably well controlled. She is eating and drinking and ambulating. She is bottlefeeding. Her lochia is normal. We will plan to send her home tomorrow.
[2020-12-22 13:29] LABS: POC Glucose,Bedside 140 (70-110)
[2020-12-23 09:28] VITALS: BP 123/81; PULSE 96; RESP 16; TEMP 36.8; O2SAT 98
--- NOTE | 2020-12-23 10:02 | HMH.OBDCSM ---
General - General Admission date:: 12/21/20 Discharge date: 12/23/20 HPI - History of Present Illness History of present illness: She is a 25-year-old one now para one who was 38 weeks gestational age. She has been followed throughout her with gestational diabetes. She has been on Metformin as well as Lantus. On examination she had an extremely narrow pelvis and the baby's head was high at term. As result of that she was offered primary lower segment transverse section. Hospital Course Hospital Course: On December 21, 2020 she underwent a primary lower segment transverse section. She delivered a liveborn male child at 7:49 AM. The baby weighed 6 pounds 9 ounces and was 19 inches long. He had Apgars of 8 at 1 minute and 9 at 5 minutes. pH was 7.28. She has done very well and has remained afebrile throughout her hospitalization. Her pain is been well controlled and she did have a T AP block. She is eating and drinking and ambulating. She is breast-feeding. Her lochia is normal. She has AB+ blood, she is well immune and was group B streptococcus negative. Her cake cutter machine is Dr. Grajeda. She is discharged home to follow-up with me in approximately 2 weeks time. She will continue with her vitamins and iron. She was given a prescription for Percocet 5/325 number 12 tablets. She will continue with ibuprofen. She was given the usual instructions with respect to limiting her activity, driving and sexual activity. She was given instructions with respect to wound care. Her condition on discharge is stable improved. Rhogam Administration: Not Indicated Objective Vital signs: Temp Pulse Resp BP Pulse Ox 97.9 F 98 H 20 112/76 97 12/22/20 08:00 12/22/20 08:00 12/22/20 08:00 12/22/20 08:00 12/22/20 08:00 no acute distress - *Routine HEENT Exam Head: Present: normocephalic Eye: Present: EOMI, PERRL ENT: Present: mucous membranes moist Results Labs on day of discharge: Labs from last 24 hours 12/22/20 13:16 POC Glucose 140 H DS: Diagnosis - Discharge Diagnosis (1) pelvic disproportion delivered Status: Acute (2) High head at term, delivered Status: Acute (3) Delivery by section of full-term infant Status: Acute (4) Gestational diabetes mellitus (GDM) Status: Acute Discharge Plan - Patient Discharge Instructions ACTIVITY: No heavy lifting DIET: continue same diet Additional Instructions: No heavy lifting/strenuous activity Nothing in the vagina for 6 weeks No driving for 2 weeks or while taking prescription narcotics Patient Instructions: Depression, Hemorrhage, DI for , DI for Pre-eclampsia, Surgical Site Infection, DI for Postoperative Pain, [facility] Post Discharge Instructions, Preventing the Spread of Coronavirus Discharge Instructions - Follow up Plan Follow up with: Wolf Arechiga MD [Staff Physician] - Disposition: Home, Self-Care Condition at discharge:: Stable Home Medications: Home Medications Medication Instructions Recorded Confirmed Type fluticasone propionate 50 1 spray NS DAILY g 09/15/20 12/21/20 History mcg/actuation nasal spray,suspension ferrous sulfate 325 mg (65 mg 325 mg PO DAILY 10/14/20 12/21/20 History iron) tablet prenat.vits,david,pht-vmmz-qwpri 1 tab PO DAILY 10/14/20 12/21/20 History metformin 500 mg tablet 500 mg PO BIDWMEAL tab 11/19/20 12/21/20 History insulin detemir U-100 100 unit/mL 6 units SQ HS 12/03/20 12/21/20 History (3 mL) subcutaneous pen Cefdinir [Omnicef 300mg Capsule] 300 mg PO BID 12/21/20 12/21/20 History Ibuprofen [Motrin 400mg 400 mg PO Q4HP PRN #40 tab 12/23/20 Rx tablet] Oxycodone HCl/Acetaminophen 1 tab PO Q4-6H PRN #12 tablet 12/23/20 Rx [Percocet 5/325mg tablet] Prescriptions/Medication Reconciliation: New Oxycodone HCl/Acetaminophen [
== END 2020-12-23 11:42 | disposition home or self-care (01) | DRG 788 ==
PROVIDERS: Admitting Provider Nurse Practitioner Obstetrics & Gynecology; PCP Nurse Practitioner Family; Visit Provider Nurse Practitioner Obstetrics & Gynecology
PROC: (CPT 59514; principal; 2020-12-21 07:30)
DX: O24.414 Gestational diabetes mellitus in pregnancy, insulin controlled (principal); Z3A.38 38 weeks gestation of pregnancy; O32.4XX0 Maternal care for high head at term, not applicable or unspecified; O24.424 Gestational diabetes mellitus in childbirth, insulin controlled; O65.4 Obstructed labor due to fetopelvic disproportion, unspecified; Z37.0 Single live birth; O75.89 Other specified complications of labor and delivery
CPT/HCPCS: 59514; 36415; 59025; 80305; 81001; 82800; 82962; 85014; 85018; 86850; 87086; 94761; G0283; J1956

== ENCOUNTER → 2022-01-25 12:18 | Outpatient (CLI) | payer BC, SELFPAY ==
--- NOTE | 2022-01-25 12:37 | MR_ITS ---
FINAL REPORT CLINICAL HISTORY: Worsening headaches, new features, history of hydr H/A IN RIGHT EYE THAT GOES INTO RIGHT EAR HX INFLAMMATION DRAINED FROM HEAD SYMPTOMS X 1 YEAR FINDINGS: Multi planar MR imaging was obtained through the brain without contrast. There is a septated cystic focus in the posterior right temporal lobe. Focus measures 2.5 x 2.0 cm. This is best seen on images 11 and 12 of series 6. There is surrounding encephalomalacia. There is ex vacuo dilatation of the temporal horn of the right lateral ventricle. There may be an overlying calvarial defect on image 16 of series 6 and series 7. No definite acute abnormality is seen. 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 Findings are probably due to prior shunt or surgery. No prior exams were available for comparison. Recommend correlation with past history. Reviewed, Interpreted and Dictated by Nathanael Gomez MD Transcribed by Tae Lyman Authenticated and [facility]
--- NOTE | 2022-01-25 13:19 | CT_ITS ---
FINAL REPORT TECHNIQUE: After the administration of IV contrast, axial images through the orbits and inner ear were obtained by computed tomography. Reformatted images were obtained and reviewed. This study was performed with techniques to keep radiation doses as low as reasonably achievable (ALARA). Individualized dose reduction techniques using automated exposure control or adjustment of mA and/or kV according to the patient's size were employed. CLINICAL HISTORY: Eval for cholesteatoma, osteomyelitis, abscess MRI done today FINDINGS: RIGHT: The external auditory canal is patent. There is extensive sclerosis throughout the mastoid air cells, probably related to sequela of chronic mastoiditis. The middle ear cavity is patent. The ossicles are intact. On the coronal images, the scutum is intact. LEFT: There is debris in the mid left external auditory canal. There is abnormal sclerosis in the left mastoid air cells consistent with sequela of mastoiditis. The middle ear cavity is patent. The ossicles are intact. The scutum is intact. IMPRESSION: Abnormal sclerosis in the mastoid air cells bilaterally, probably related to sequela of chronic bilateral mastoiditis. No evidence of erosion to suggest underlying cholesteatoma. Reviewed, Interpreted and Dictated by Nathanael Gomez MD Transcribed by Nicolasa Shannon Authenticated and [facility]
[2022-01-25 14:23] LABS: Basophils # 0.1 K/mm3 (0-0.2); Basophils % 1.4 % (0.1-2.0); Eosinophils # 0.1 K/mm3 (0.0-0.4); Eosinophils % 1.8 % (0.1-12.0); Hematocrit 42.3 % (37.0-47.0); Hemoglobin 13.4 g/dL (12.2-16.2); Lymphocytes # 3.5 K/mm3 (0.7-4.5); Lymphocytes % 44.1 % (10-50); Mean Corpuscular HGB Conc 31.8 g/dL (31.8-35.4); Mean Corpuscular Hemoglobin 27.7 pg (27.0-31.2); Mean Corpuscular Volume 87.3 fl (81-99); Mean Platelet Volume 8.9 fl (7.4-10.4); Monocytes # 0.4 K/mm3 (0.1-1.0); Monocytes % 4.9 % (1.7-9.3); Neutrophils # 3.8 K/mm3 (1.8-7.8); Neutrophils % 47.7 % (37.0-80.0); Platelet Count 359 K/mm3 (142-424); Red Blood Count 4.85 M/mm3 (4.20-5.40); Red Cell Distribution Width 14.5 % (11.5-17.5); White Blood Count 7.9 K/mm3 (4.8-10.8)
[2022-01-25 16:31] LABS: Alanine Aminotransferase 38 U/L (12-78); Albumin Level 4.4 g/dl (3.5-5.0); Albumin/Globulin Ratio 1.7 (1.1-1.8); Alkaline Phosphatase 96 U/L (38-126); Anion Gap 15.2 mEq/L (5-15); Aspartate Amino Transferase 27 U/L (14-36); Blood Urea Nitrogen 14 mg/dl (7-17); Calcium 9.4 mg/dl (8.4-10.2); Carbon Dioxide 30 mmol/L (22.0-30.0); Chloride 98 mmol/L (98-107); Estimated Glomerular Filt Rate 99 ml/min (>60); GFR (African American) 120 ML/MIN (>60); Globulin 2.6 g/dL (1.3-3.2); Glucose 85 mg/dl (74-100); Potassium 4.2 mmoL/L (3.5-5.1); Sodium 139 mmol/L (136-145)
[2022-01-25 16:44] LABS: Bilirubin,Total < 0.1 mg/dl (0.2-1.3)
[2022-01-25 17:01] LABS: Thyroid Stimulating Hormone 1.69 uIU/mL (0.465-4.68)
[2022-01-25 17:36] LABS: Vitamin B12 319 pg/mL (239-931)
[2022-01-25 17:37] LABS: Folate 5.97 ng/mL
== END ==
PROVIDERS: PCP Nurse Practitioner Family; Visit Provider Nurse Practitioner Family
DX: H66.90 Otitis media, unspecified, unspecified ear; G44.40 Drug-induced headache, not elsewhere classified, not intractable; G89.29 Other chronic pain; F39 Unspecified mood [affective] disorder; G47.8 Other sleep disorders; G47.9 Sleep disorder, unspecified; Z86.69 Personal history of other diseases of the nervous system and sense organs; Z68.41 Body mass index [BMI] 40.0-44.9, adult
CPT/HCPCS: 36415; 70480; 70551; 80053; 82607; 82746; 84443; 85025

== ENCOUNTER → 2022-02-16 13:25 | Outpatient (CLI) | payer BC, SELFPAY | PROVIDERS: PCP Nurse Practitioner Family; Visit Provider Nurse Practitioner Family | DX: G47.33 Obstructive sleep apnea (adult) (pediatric) (principal); G47.8 Other sleep disorders; E66.01 Morbid (severe) obesity due to excess calories; Z68.41 Body mass index [BMI] 40.0-44.9, adult | CPT/HCPCS: G0399 ==

== ENCOUNTER → 2022-07-13 16:42 | Outpatient (CLI) | payer BC, SELFPAY ==
[2022-07-13 19:55] LABS: HCG,Quantitative 70493 mIU/ml (0-5.42)
[2022-07-15 08:52] LABS: Progesterone 9.2 ng/mL (.)
== END ==
PROVIDERS: PCP Nurse Practitioner Family; Visit Provider Obstetrics & Gynecology
DX: N92.6 Irregular menstruation, unspecified (principal); Z32.00 Encounter for pregnancy test, result unknown
CPT/HCPCS: 36415; 84144; 84702

== ENCOUNTER → 2022-07-18 17:33 | Outpatient (CLI) | payer BC, SELFPAY | PROVIDERS: Visit Provider Obstetrics & Gynecology | DX: Z34.90 Encounter for supervision of normal pregnancy, unspecified, unspecified trimester (principal) | CPT/HCPCS: 87086 ==

== ENCOUNTER → 2022-08-10 09:01 | Outpatient (CLI) | payer BC, SELFPAY ==
[2022-08-10 09:52] LABS: Basophils # 0.1 K/mm3 (0-0.2); Basophils % 0.6 % (0.1-2.0); Eosinophils # 0.1 K/mm3 (0.0-0.4); Eosinophils % 1.1 % (0.1-12.0); Hematocrit 40.4 % (37.0-47.0); Hemoglobin 13.2 g/dL (12.2-16.2); Lymphocytes # 2.5 K/mm3 (0.7-4.5); Lymphocytes % 29.3 % (10-50); Mean Corpuscular HGB Conc 32.6 g/dL (31.8-35.4); Mean Corpuscular Hemoglobin 28.6 pg (27.0-31.2); Mean Corpuscular Volume 87.7 fl (81-99); Mean Platelet Volume 8.3 fl (7.4-10.4); Monocytes # 0.3 K/mm3 (0.1-1.0); Monocytes % 3.6 % (1.7-9.3); Neutrophils # 5.6 K/mm3 (1.8-7.8); Neutrophils % 65.4 % (37.0-80.0); Platelet Count 293 K/mm3 (142-424); Red Cell Distribution Width 15.3 % (11.5-17.5); White Blood Count 8.5 K/mm3 (4.8-10.8)
[2022-08-10 10:08] LABS: Glucose,Fasting 90 mg/dl (74-100)
[2022-08-10 11:13] LABS: Chloride 102 mmol/L (98-107); Potassium 3.9 mmoL/L (3.5-5.1); Sodium 137 mmol/L (136-145)
[2022-08-10 11:16] LABS: Alanine Aminotransferase 22 U/L (12-78); Albumin Level 4.3 g/dl (3.5-5.0); Albumin/Globulin Ratio 1.6 (1.1-1.8); Alkaline Phosphatase 71 U/L (38-126); Anion Gap 11.9 mEq/L (5-15); Aspartate Amino Transferase 25 U/L (14-36); Bilirubin,Total 0.3 mg/dl (0.2-1.3); Blood Urea Nitrogen 8 mg/dl (7-17); Carbon Dioxide 27 mmol/L (22.0-30.0); Estimated Glomerular Filt Rate 118 ml/min (>60); GFR (African American) 143 ML/MIN (>60); Globulin 2.7 g/dL (1.3-3.2); Glucose 89 mg/dl (74-100)
[2022-08-10 16:30] LABS: Glucose 1 Hour 137 mg/dL (74-100)
[2022-08-11 09:41] LABS: Rubella Antibodies, IgG 5.89 index (Immune >0.99)
[2022-08-11 10:36] LABS: Rapid Plasma Reagin Ab Titer Non Reactive (NonRea<1:1)
[2022-08-13 17:19] LABS: HIV Screen 4th Generation wRfx Non Reactive; Hepatitis B Surface Antigen Negative; Hepatitis C Antibody Non Reactive
== END ==
PROVIDERS: PCP Nurse Practitioner Family; Visit Provider Obstetrics & Gynecology
DX: Z34.90 Encounter for supervision of normal pregnancy, unspecified, unspecified trimester (principal); Z86.32 Personal history of gestational diabetes; Z32.00 Encounter for pregnancy test, result unknown
CPT/HCPCS: 36415; 80053; 82951; 85025; 86593; 86703; 86762; 86850; 87340; 87380; G0432

== ENCOUNTER → 2022-08-17 10:20 | Outpatient (CLI) | payer BC, SELFPAY ==
[2022-08-17 11:18] LABS: Glucose,Fasting 86 mg/dl (74-100)
[2022-08-17 12:29] LABS: Glucose 1 Hour 163 mg/dL (74-100)
[2022-08-17 13:23] LABS: Glucose 2 Hour 146 mg/dL (74-100)
[2022-08-17 16:46] LABS: Glucose 3 Hour 115 mg/dL (74-100)
== END ==
PROVIDERS: PCP Nurse Practitioner Family; Visit Provider Obstetrics & Gynecology
DX: R73.09 Other abnormal glucose (principal)
CPT/HCPCS: 36415; 82951

== ENCOUNTER → 2022-10-07 12:36 | Outpatient (CLI) | payer BC, SELFPAY ==
--- NOTE | 2022-10-07 13:08 | US_ITS ---
PROCEDURE: US OB /MATERNAL DETAIL CLINICAL INDICATION: 20 week anatomy scan COMPARISON: No exams were available for comparison FINDINGS: Single viable intrauterine gestation. Cephalic position. Placenta: Fundalplacenta grade 1 . There is average amount fluid. The cervix appears satisfactory. Closed and measuring 4.28 centimeters in length. Complete survey performed and was unremarkable on the submitted images as in PACS. No discrete anomalies identified on survey imaging by technologist. Active fetus. Three-vessel cord with satisfactory umbilical cord insertion. 4- chamber heart noted. Survey of brain & ventricles Unremarkable. Face and neck survey unremarkable. Upper lip and face seen. Nasion visualized. Diaphragm and chest views unremarkable. Abdomen: Both kidneys noted and unremarkable. Stomach noted and satisfactory. Bladder appears normal. Spine: Survey of the spine satisfactory with no anomalies identified nor imaged. Upper, middle and lower spine visualized. Both arms and legs noted. Amniotic Fluid: Adequate. Maternal adnexa: No significant findings. Measurements: From her last menstrual period she is 20 weeks and 3 days. Average ultrasound age 20weeks. Gestational Age 20weeks Estimated due date by ultrasound age 1002/24/2023. Estimated weight 339g BPD = 19weeks 5days OFD = 20weeks 4days HC = 19weeks 4days AC = 20weeks 2days FL = 20weeks 3days Growth Percentile= 27Percent Heart Rate = 156bpm Cerebellum = 20weeks 6days Humerus = 20weeks 3days HC/AC is 1.12 CI is 0.74 FL/BPD is 0.74 FL/AC is 0.22 IMPRESSION: 1. Single viable fetus in the cephalic presentation with a fundal placenta grade 1. 2. Size and dates are congruent. 3. A few placental lakes of questionable significance. 4. Anatomical scan is otherwise normal. 5. Technically difficult exam due to the patient's body habitus. Dictated by: Wolf Arechiga MD 10/08/2022 11:39 Wolf Arechiga MD in [place] 10/08/2022 11:39
== END ==
LOC: RAD 12:36
PROVIDERS: PCP Nurse Practitioner Family; Visit Provider Obstetrics & Gynecology
DX: Z34.90 Encounter for supervision of normal pregnancy, unspecified, unspecified trimester (principal); Z3A.20 20 weeks gestation of pregnancy
CPT/HCPCS: 76811

== ENCOUNTER → 2022-11-28 09:39 | Outpatient (CLI) | payer BC, SELFPAY ==
[2022-11-28 09:54] LABS: Basophils % 0.2 % (0.1-2.0); Eosinophils # 0.1 K/mm3 (0.0-0.4); Eosinophils % 0.9 % (0.1-12.0); Hematocrit 36.9 % (37.0-47.0); Hemoglobin 11.8 g/dL (12.2-16.2); Lymphocytes # 1.9 K/mm3 (0.7-4.5); Lymphocytes % 25.3 % (10-50); Mean Corpuscular Hemoglobin 28.2 pg (27.0-31.2); Mean Platelet Volume 9.1 fl (7.4-10.4); Monocytes # 0.3 K/mm3 (0.1-1.0); Neutrophils # 5.2 K/mm3 (1.8-7.8); Neutrophils % 69.6 % (37.0-80.0); Platelet Count 291 K/mm3 (142-424); Red Cell Distribution Width 15.1 % (11.5-17.5); White Blood Count 7.5 K/mm3 (4.8-10.8)
[2022-11-28 10:15] LABS: Glucose,Fasting 93 mg/dl (74-100)
[2022-11-28 18:43] LABS: Glucose 1 Hour 172 mg/dL (74-100)
== END ==
PROVIDERS: PCP Nurse Practitioner Family; Visit Provider Obstetrics & Gynecology
DX: O10.212 Pre-existing hypertensive chronic kidney disease complicating pregnancy, second trimester (principal); Z3A.28 28 weeks gestation of pregnancy
CPT/HCPCS: 36415; 82951; 85025

== ENCOUNTER → 2022-12-05 13:11 | Outpatient (CLI) | payer BC, SELFPAY ==
--- NOTE | 2022-12-05 13:11 | US_ITS ---
PROCEDURE: US OB FOLLOW UP CLINICAL INDICATION: hypertension in COMPARISON: US US OB /MATERNAL DETAIL from 10/07/2022 FINDINGS: Transabdominal sonographic images of the uterus were obtained. The following parameters are obtained: From her established due date she is 28weeks 6days Viable fetus in the cephalic presentation with an anterior placenta with posterior wrap grade 1. heart rate: 135bpm bpm. BPD: 28weeks 2days OFD: 28weeks 3days HC: 28weeks 1day AC: 27weeks 6days FL: 29weeks 1day 19 percentile HC/AC: 1.1 Cephalic index: 0.75 FL/BPD: 0.78 FL/AC: 0.23 Amniotic fluid index: 8.42cm The femur length is 29weeks 1day No obvious anomalies evident. profile seen, stomach, bladder, kidneys, four chamber heart appear normal. Cervix: 4.0 cm IMPRESSION: 1. Viable fetus in the cephalic presentation with an anterior placenta that wraps posteriorly. 2. The fluid is within normal limits. 3. There has been good interval growth. Fetus currently 19th percentile. Dictated by: Wolf Arechiga MD 12/05/2022 14:59 Wolf Arechiga MD in [facility] 12/05/2022 14:59
== END ==
LOC: RAD 13:11
PROVIDERS: PCP Nurse Practitioner Family; Visit Provider Obstetrics & Gynecology
DX: O16.2 Unspecified maternal hypertension, second trimester (principal); Z3A.28 28 weeks gestation of pregnancy
CPT/HCPCS: 76816

== ENCOUNTER → 2022-12-10 08:05 | Outpatient (CLI) | payer BC, SELFPAY ==
[2022-12-10 08:41] LABS: Glucose,Fasting 97 mg/dl (74-100)
[2022-12-10 10:07] LABS: Glucose 1 Hour 160 mg/dL (74-100)
[2022-12-10 11:58] LABS: Glucose 2 Hour 164 mg/dL (74-100)
[2022-12-10 12:15] LABS: Glucose 3 Hour 99 mg/dL (74-100)
== END ==
PROVIDERS: PCP Nurse Practitioner Family; Visit Provider Obstetrics & Gynecology
DX: Z34.93 Encounter for supervision of normal pregnancy, unspecified, third trimester (principal); Z3A.29 29 weeks gestation of pregnancy
CPT/HCPCS: 36415; 82951

== ENCOUNTER → 2023-01-03 11:28 | Outpatient (CLI) | payer BC, SELFPAY ==
--- NOTE | 2023-01-03 | US_ITS ---
PROCEDURE: US OB BIOPHYSICAL PROFILE CLINICAL INDICATION: Hypertension. COMPARISON: Follow-up ultrasound 12/05/2022 FINDINGS: Transabdominal sonographic images of the uterus were obtained. From her established due date she is 33weeks 0 days.. The following parameters are obtained: Viable fetus in the cephalic presentation with a fundal placenta grade 2. Average ultrasound age is 33weeks 3days. Estimated due date by ultrasound is 02/18/2023. Estimated weight is 4lb 10.72oz, 2118 grams. Cervix measures 3.3 cm. 44 percentile. heart rate: 130bpm bpm. BPD: 33 weeks 3 days HC: 33 weeks 4 days AC: 32 weeks 6 days FL: 33 weeks 4 days HC/AC: 1.05 FL/BPD: 0.79 FL/AC: 0.23 Amniotic fluid index: 10.52cm Doppler evaluation of the umbilical artery: SD ratio: 3.69 Resistive index: 0.73 No obvious anomalies evident.Kidneys, four-chamber heart, three-vessel cord appear normal. IMPRESSION: 1. Viable fetus in the cephalic presentation with a fundal placenta grade 2. 2. The fluid is within normal limits with an amniotic fluid index of 10.52 cm. 3. There has been good interval growth with the baby currently 44 percentile. 4. SD ratio is normal at 3.69 average. Dictated by: Wolf Arechiga MD 01/04/2023 17:14 Wolf Arechiga MD in [facility] 01/04/2023 17:14
== END ==
LOC: RAD 01-04 11:28
PROVIDERS: PCP Nurse Practitioner Family; Visit Provider Obstetrics & Gynecology
DX: O28.8 Other abnormal findings on antenatal screening of mother (principal); O24.419 Gestational diabetes mellitus in pregnancy, unspecified control; Z3A.32 32 weeks gestation of pregnancy
CPT/HCPCS: 76816; 76819; 76820

== ENCOUNTER 2023-01-13 09:14 | Outpatient (CLI) | payer BC, SELFPAY ==
[2023-01-13 09:34] VITALS: BMI 38.9
--- NOTE | 2023-01-13 09:36 | US_ITS ---
PROCEDURE: US OB BIOPHYSICAL PROFILE CLINICAL INDICATION: non reactive NST COMPARISON: FINDINGS: Transabdominal sonographic images of the pelvis were obtained. From her established due date she is 34weeks 3days. The following parameters are obtained: Viable fetus in the cephalic presentation with an anterior placenta grade 2. heart rate: 126bpm bpm. Amniotic fluid index: 10.05cm Qualitative AFV: 2 breathing movements: 2 Gross body movements: 2 Tone: 2 Biophysical profile score: 8 No obvious anomalies evident.Kidneys, four-chamber view, three-vessel cord appear normal. IMPRESSION: 1. Fetus in the cephalic presentation with an anterior placenta grade 2. 2. The fluid is within normal limits with an amniotic fluid index of 10.05 cm. 3. There is good breathing movement. Biophysical profile 12/13. Dictated by: Wolf Arechiga MD 01/16/2023 07:43 Wolf Arechiga MD in OV 01/16/2023 07:43
[2023-01-13 09:48] VITALS: BP 120/80; PULSE 100; RESP 18; TEMP 36.6; O2SAT 100; BMI 38.9
== END 2023-01-13 10:15 | disposition home or self-care (01) ==
LOC: OBOUT 09:17 → OB 09:18
PROVIDERS: PCP Nurse Practitioner Family; Visit Provider Obstetrics & Gynecology
DX: Z34.93 Encounter for supervision of normal pregnancy, unspecified, third trimester (principal); Z3A.34 34 weeks gestation of pregnancy
CPT/HCPCS: 59025; 76819; G0463

== ENCOUNTER → 2023-01-20 07:41 | Outpatient (CLI) | payer BC, SELFPAY ==
--- NOTE | 2023-01-20 07:47 | US_ITS ---
PROCEDURE: US OB BIOPHYSICAL PROFILE CLINICAL INDICATION: with ZHAO/ SD ratio COMPARISON: FINDINGS: Transvaginal sonographic images were obtained of the uterus. From her established due date she is 35weeks 3days. The following parameters are obtained: Viable fetus in the cephalic presentation with an anterior placenta grade 2. The cervix measures 3.8 cm. Average ultrasound age is 35weeks 0 days. Estimated due date by ultrasound is 02/24/2023. Estimated weight is 5lb 9oz, 2518 grams. 31 percentile. heart rate: 132bpm bpm. BPD: 34weeks 6days OFD: 34weeks 6days HC: 34 weeks 5 days AC: 34 weeks 5 days FL: 35 weeks 1 day HC/AC: 1.01 Cephalic index: 0.8 FL/BPD: 0.78 FL/AC: 0.22 Amniotic fluid index: 13.91cm Qualitative AFV: 2 breathing movements: 2 Gross body movements: 2 Tone: 2 Biophysical profile score: 8 Doppler evaluation of the umbilical artery: SD ratio: 3.24 Resistive index: 0.69 No obvious anomalies evident.stomach, four-chamber view, appear normal. IMPRESSION: 1. Viable intrauterine fetus in the cephalic presentation with an anterior placenta grade 2. 2. The fluid is within normal limits with an amniotic fluid index of 13.9 cm. 3. Biophysical profile 12/13 with movement and breathing movement seen. Dictated by: Wolf Arechiga MD 01/21/2023 06:32 Wolf Arechiga MD in OV 01/21/2023 06:32
== END ==
PROVIDERS: PCP Nurse Practitioner Family; Visit Provider Obstetrics & Gynecology
DX: O10.919 Unspecified pre-existing hypertension complicating pregnancy, unspecified trimester (principal); O28.8 Other abnormal findings on antenatal screening of mother; Z3A.35 35 weeks gestation of pregnancy
CPT/HCPCS: 76816; 76819; 76820

== ENCOUNTER → 2023-01-27 23:28 | Outpatient (CLI) | payer BC, SELFPAY | PROVIDERS: PCP Nurse Practitioner Family; Visit Provider Student in an Organized Health Care Education/Training Program | DX: J02.9 Acute pharyngitis, unspecified (principal) | CPT/HCPCS: 87070; 87635 ==

== ENCOUNTER 2023-01-31 14:29 | Outpatient (CLI) | payer BC, SELFPAY ==
[2023-01-31 15:00] VITALS: BP 101/48; PULSE 104; RESP 20; TEMP 37.2; O2SAT 95; BMI 38.9
== END 2023-01-31 15:10 | disposition home or self-care (01) ==
LOC: OBOUT 14:30 → OB 14:31
PROVIDERS: PCP Nurse Practitioner Family; Visit Provider Obstetrics & Gynecology
DX: O26.893 Other specified pregnancy related conditions, third trimester (principal); Z3A.37 37 weeks gestation of pregnancy
CPT/HCPCS: 59025; G0463

== ENCOUNTER 2023-02-06 08:28 | Outpatient (CLI) | payer BC, SELFPAY ==
[2023-02-06 08:41] VITALS: BP 138/76; PULSE 84; RESP 16; TEMP 36.7; O2SAT 98; BMI 39.1
== END 2023-02-06 09:12 | disposition home or self-care (01) ==
LOC: OBOUT 08:29 → OB 08:30
PROVIDERS: PCP Nurse Practitioner Family; Visit Provider Obstetrics & Gynecology
DX: O26.893 Other specified pregnancy related conditions, third trimester (principal); Z3A.37 37 weeks gestation of pregnancy
CPT/HCPCS: 59025; G0463

== ENCOUNTER 2023-02-09 14:29 | Outpatient (CLI) | payer BC, SELFPAY ==
[2023-02-09 15:10] VITALS: BMI 39.4
[2023-02-09 15:11] VITALS: BP 141/62; PULSE 85; RESP 18; TEMP 36.7; O2SAT 97
[2023-02-09 15:31] LABS: Microscopic, Urine URINE MICROSCOPIC (MICROSCOPIC)
[2023-02-09 15:36] VITALS: BP 141/62; PULSE 85; RESP 18; TEMP 36.7; O2SAT 97; BMI 39.4
[2023-02-09 15:37] LABS: Basophils % 0.2 % (0.1-2.0); Eosinophils # 0.1 K/mm3 (0.0-0.4); Eosinophils % 1.1 % (0.1-12.0); Hematocrit 37.3 % (37.0-47.0); Hemoglobin 11.9 g/dL (12.2-16.2); Lymphocytes # 2.1 K/mm3 (0.7-4.5); Lymphocytes % 30.7 % (10-50); Mean Corpuscular HGB Conc 31.9 g/dL (31.8-35.4); Mean Corpuscular Hemoglobin 26.4 pg (27.0-31.2); Mean Platelet Volume 8.9 fl (7.4-10.4); Monocytes # 0.3 K/mm3 (0.1-1.0); Monocytes % 4.1 % (1.7-9.3); Neutrophils # 4.3 K/mm3 (1.8-7.8); Neutrophils % 63.8 % (37.0-80.0); Platelet Count 344 K/mm3 (142-424); Red Blood Count 4.49 M/mm3 (4.20-5.40); Red Cell Distribution Width 15.3 % (11.5-17.5); White Blood Count 6.8 K/mm3 (4.8-10.8)
[2023-02-09 15:48] LABS: Activated Partial Thrombo Time 25.5 seconds (22.8-30.6); Fibrinogen 604 mg/dL (229.9-363.5); INR 0.89 (0.9-1.1); Prothrombin Time 9.7 seconds (10.1-12.5)
[2023-02-09 16:27] LABS: Appearance,Urine CLEAR (Clear); Bilirubin,Urine Negative (Negative); Blood, Urine Negative (Negative); Color,Urine YELLOW (Yellow); Glucose,Urine (UA) Negative (Negative); Ketones,Urine Negative (Negative); Leukocyte Esterase,Urine Negative (Negative); Nitrate,Urine Negative (Negative); Protein,Urine Negative (Negative); Specific Gravity, Urine 1.025 (1.005-1.030); Urobilinogen,Urine 0.2 EU/dl (0.2)
[2023-02-09 16:29] LABS: Alanine Aminotransferase 29 U/L (12-78); Anion Gap 11.7 mEq/L (5-15); Aspartate Amino Transferase 32 U/L (14-36); Blood Urea Nitrogen 8 mg/dl (7-17); Calcium 8.6 mg/dl (8.4-10.2); Carbon Dioxide 23 mmol/L (22.0-30.0); Chloride 107 mmol/L (98-107); Creatinine Clearance Estimated 263 mL/min (50-200); D-Dimer 1.18 ug/mL (0.0-0.5); Estimated Glomerular Filt Rate 145 ml/min (>60); GFR (African American) 175 ML/MIN (>60); Glucose 92 mg/dl (74-100); Potassium 3.7 mmoL/L (3.5-5.1); Sodium 138 mmol/L (136-145)
[2023-02-09 16:41] LABS: Amphetamine/Metha Screen,Urine Negative ng/ml (<1000); Barbiturates Screen,Urine Negative ng/ml (<200)
[2023-02-09 16:42] LABS: Uric Acid 4.1 mg/dl (2.5-6.2)
[2023-02-09 16:42] LABS: Benzodiazepines Screen,Urine Negative ng/ml (<200); Cannabinoid Screen,Urine Negative ng/ml (<50)
[2023-02-09 16:43] LABS: Cocaine Screen,Urine Negative ng/ml (<300)
[2023-02-09 16:44] LABS: Methadone Screen,Urine Negative ng/ml (<300)
[2023-02-09 16:45] LABS: Opiate Screen,Urine Negative ng/ml (<300)
[2023-02-09 16:46] LABS: Phencyclidine Screen,Urine Negative ng/ml (<25)
[2023-02-09 16:48] LABS: Bacteria,Urine Trace /lpf; Microalbumin/Creatinine Ratio 21.1; WBC,Urine Occasional #/hpf (0-3)
[2023-02-09 16:50] LABS: Creatinine,Urine Random 136 mg/dL (Not Estab.)
== END 2023-02-09 17:06 | disposition home or self-care (01) ==
LOC: OBOUT 14:31 → OB 14:32
PROVIDERS: PCP Nurse Practitioner Family; Visit Provider Nurse Practitioner Obstetrics & Gynecology
DX: O13.3 Gestational [pregnancy-induced] hypertension without significant proteinuria, third trimester (principal); Z3A.38 38 weeks gestation of pregnancy
CPT/HCPCS: 59025; 80048; 80305; 81001; 82043; 82570; 84450; 84460; 84550; 85025; 85378; 85384; 85610; 85730; G0463

== ENCOUNTER 2023-02-13 08:18 | Outpatient (CLI) | payer BC, SELFPAY ==
[2023-02-13 09:08] VITALS: BP 133/83; PULSE 90; RESP 18; TEMP 37; O2SAT 99; BMI 39.4
== END 2023-02-13 09:05 | disposition home or self-care (01) ==
LOC: OBOUT 08:21 → OB 08:21
PROVIDERS: PCP Nurse Practitioner Family; Visit Provider Nurse Practitioner Obstetrics & Gynecology
DX: O26.893 Other specified pregnancy related conditions, third trimester (principal); Z3A.38 38 weeks gestation of pregnancy
CPT/HCPCS: 59025; G0463

== ENCOUNTER 2023-02-15 04:52 | Inpatient (IN) | payer BC, SELFPAY ==
[2023-02-15] VITALS (8 sets, daily range): BP systolic 121–138; BP diastolic 48–93; PULSE 67–82; RESP 12–18; TEMP 36.3–36.6; O2SAT 97–98; BMI 39.4
[2023-02-15 05:52] LABS: Microscopic, Urine URINE MICROSCOPIC (MICROSCOPIC)
[2023-02-15 05:54] LABS: Appearance,Urine Slightly Cloudy (Clear); Bilirubin,Urine Negative (Negative); Blood, Urine Negative (Negative); Color,Urine YELLOW (Yellow); Glucose,Urine (UA) Negative (Negative); Ketones,Urine Negative (Negative); Leukocyte Esterase,Urine 1+ (Negative); Nitrate,Urine Negative (Negative); Protein,Urine Negative (Negative); Specific Gravity, Urine 1.025 (1.005-1.030); Urobilinogen,Urine 0.2 EU/dl (0.2)
[2023-02-15 05:55] LABS: Basophils % 0.2 % (0.1-2.0); Eosinophils # 0.1 K/mm3 (0.0-0.4); Eosinophils % 0.7 % (0.1-12.0); Hematocrit 34.6 % (37.0-47.0); Hemoglobin 11.6 g/dL (12.2-16.2); Lymphocytes # 2.3 K/mm3 (0.7-4.5); Lymphocytes % 28.8 % (10-50); Mean Corpuscular HGB Conc 33.6 g/dL (31.8-35.4); Mean Corpuscular Hemoglobin 27.6 pg (27.0-31.2); Mean Corpuscular Volume 82.2 fl (81-99); Mean Platelet Volume 8.9 fl (7.4-10.4); Monocytes # 0.4 K/mm3 (0.1-1.0); Monocytes % 4.9 % (1.7-9.3); Neutrophils # 5.3 K/mm3 (1.8-7.8); Neutrophils % 65.4 % (37.0-80.0); Platelet Count 272 K/mm3 (142-424); Red Blood Count 4.21 M/mm3 (4.20-5.40); Red Cell Distribution Width 15.8 % (11.5-17.5); White Blood Count 8.1 K/mm3 (4.8-10.8)
[2023-02-15 05:57] LABS: Chloride 107 mmol/L (98-107); Sodium 137 mmol/L (136-145)
[2023-02-15 06:00] LABS: Alanine Aminotransferase 22 U/L (12-78); Albumin Level 3.2 g/dl (3.5-5.0); Albumin/Globulin Ratio 1.1 (1.1-1.8); Alkaline Phosphatase 261 U/L (38-126); Aspartate Amino Transferase 24 U/L (14-36); Bilirubin,Total 0.5 mg/dl (0.2-1.3); Blood Urea Nitrogen 9 mg/dl (7-17); Calcium 8.6 mg/dl (8.4-10.2); Carbon Dioxide 20 mmol/L (22.0-30.0); Creatinine Clearance Estimated 263 mL/min (50-200); Estimated Glomerular Filt Rate 145 ml/min (>60); GFR (African American) 175 ML/MIN (>60); Globulin 2.9 g/dL (1.3-3.2); Glucose 101 mg/dl (74-100); Total Protein,Serum 6.1 g/dl (6.3-8.2)
[2023-02-15 06:09] LABS: Amphetamine/Metha Screen,Urine Negative ng/ml (<1000)
[2023-02-15 06:10] LABS: Barbiturates Screen,Urine Negative ng/ml (<200)
[2023-02-15 06:11] LABS: Benzodiazepines Screen,Urine Negative ng/ml (<200); Cannabinoid Screen,Urine Negative ng/ml (<50)
[2023-02-15 06:12] LABS: Cocaine Screen,Urine Negative ng/ml (<300)
[2023-02-15 06:13] LABS: Methadone Screen,Urine Negative ng/ml (<300); Opiate Screen,Urine Negative ng/ml (<300)
[2023-02-15 06:14] LABS: Phencyclidine Screen,Urine Negative ng/ml (<25)
[2023-02-15 06:45] LABS: Bacteria,Urine Trace /lpf; WBC,Urine Occasional #/hpf (0-3)
--- NOTE | 2023-02-15 07:16 | EXP.OB.APHP ---
OB - H&P: HPI Antepartum History of Present Illness Chief complaint: Scheduled repeat History of present illness: Mrs Jory Clifford is a 28 yo at 39w1d who presents to [facility] for scheduled repeat . History of x 1. complicated by chronic hypertension for which she is taking Labetalol 100 mg PO BID and gestational diabetes. She is taking glyburide 2.5 mg PO in the AM and NPH 10 units in the PM. She has had good care. History of Present Criteria for establishing EDC:: based on 1st trimester US only care: good care Ultrasounds: normal mid trimester US Obstetrical complications: gestational diabetes Medical complications: cardiovascular (Chronic hypertension) Labs Blood type: AB (+) positive Rubella: immune RPR/VDRL: nonreactive [facility]BsAG: [facility] Disclaimer: The information contained in this section may have been updated after the patient was seen, as this information can be updated by other users. 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 (Updated 02/15/23 @ 07:21 by Amnita Hutchins DO) Anxiety Chronic hypertension affecting Depression Gestational diabetes mellitus (GDM) Heartburn in in third trimester History of gestational diabetes History of gestational diabetes in prior , currently Maternal obesity affecting , antepartum Migraine Otalgia of both ears with 39 completed weeks gestation Tinnitus Surgical History History of Family History Other Coronary artery disease Diabetes Social History Smoking Status: Never smoker alcohol intake: never substance use type: denies use current occupational status: unemployed Travel in the last 8 weeks: None Review of Systems Review of Systems Review of systems:: pertinent systems reviewed and negative unless documented below Meds Home Medications and Allergies Home Medications Medication Instructions Recorded Confirmed Type prenat.vits,david,cro-gnlf-zrwjj 1 tab PO DAILY 07/18/22 02/15/23 History labetalol 100 mg tablet 100 mg PO BID #60 tabs 11/14/22 02/15/23 Rx pantoprazole 40 mg tablet,delayed 40 mg PO DAILY #30 tabs 12/05/22 02/15/23 Rx release (Protonix) blood sugar diagnostic (Accu-Chek #100 ea 12/12/22 02/09/23 Rx Guide test strips) blood-glucose meter (Accu-Chek #1 ea 12/12/22 02/09/23 Rx Guide Glucose Meter) lancets (Accu-Chek Softclix #200 ea 12/12/22 02/09/23 Rx Lancets) insulin NPH isoph U-100 human 100 10 unit (0.1 mL) SQ HS #15 mL 12/19/22 02/15/23 Rx unit/mL (3 mL) subcutaneous pen (Humulin N NPH U-100 Insulin KwikPen) glyburide 1.25 mg tablet 2.5 mg PO DAILY 02/15/23 02/15/23 History New Prescriptions to Start Prescriptions: Allergies Allergy/AdvReac Type Severity Reaction Status Date / Time Penicillins Allergy Mild Verified 02/09/23 13:08 OB - H&P: Exam Physical Exam Vital signs: Temp Pulse Resp BP Pulse Ox O2 Del Method 97.8 F 82 18 133/83 98 Room Air 02/15/23 05:42 02/15/23 05:42 02/15/23 05:42 02/15/23 05:42 02/15/23 05:42 02/15/23 05:42 Constitutional no acute distress and cooperative Routine HEENT Exam Head: Present normocephalic and atraumatic Eye: Absent conjunctivae pink ENT: Present mucous membranes moist Routine Neck Exam Present full ROM Routine Respiratory Exam Present CTA bilaterally and normal respiratory effort Routine Cardiovascular Exam Present RRR Routine Abdominal Exam Present soft (Gravoid); Absent tenderness Routine Rectal Exam Patient deferred: visual exam Routine Exam External: Present normal urethra appearance; Absent erythema, tenderness, lesions or lacerations Routine Extremities Exam Present edema (+1 bilateral lower extremity edema) and full ROM; Absen
--- NOTE | 2023-02-15 07:48 | P.CONPHA_ITS ---
Pharmacy Intervention Comments: MEDICATION RECONCILIATION COMPLETED ON PATIENT USING EXTERNAL FILL HISTORY FROM PHARMACY AND LIST FROM [facility] REM[facility] OFFICE. -ANALIA DE ANDAD
--- NOTE | 2023-02-15 07:48 | HMH.PHAINT1 ---
Pharmacy Intervention Comments: MEDICATION RECONCILIATION COMPLETED ON PATIENT USING EXTERNAL FILL HISTORY FROM PHARMACY AND LIST FROM [facility] OFFICE. -ANALIA DE ANDAD
[2023-02-15 08:00] LABS: Cord Blood PH 7.33 (7.35-7.45)
--- NOTE | 2023-02-15 08:21 | EXP.OP.NOTE ---
Date of procedure: 02/15/23 Pre-op Diagnosis:: 1. IUP at 39w1d 2. History of x 1 3. CHTN 4. GDMA2 5. Maternal obesity Post-op Diagnosis:: 1. IUP at 39w1d 2. History of x 1 3. CHTN 4. GDMA2 5. Maternal obesity Procedure performed:: Repeat Low Transverse Section Surgeon:: Aminta Hutchins DO Wedding Planner(s):: Wolf Arechiga MD PUBLIC HEALTH PROFESSOR:: Eliceo Jovel Anesthesia: spinal Estimated blood loss (mL): 400 Clinical Note:: Mrs Jory Clifford is a 28 yo at 39w1d who presents to [facility] for scheduled repeat . History of x 1. complicated by chronic hypertension for which she is taking Labetalol 100 mg PO BID and gestational diabetes. She is taking glyburide 2.5 mg PO in the AM and NPH 10 units in the PM. She has had good care. Operative findings:: 1. Live female baby, Eden, weighing 7 lb 4 oz, APGARs 8, 9 2. Nucal cord x 1, easily reduced 3. Grossly normal appearing uterus, bilateral fallopian tubes and ovaries Operative note:: The risks, benefits and alternatives of the procedure were reviewed with the patient. Informed consent was obtained. Patient was taken to the operating room where spinal anesthesia was placed. The patient received Clindamycin ang Gentamicin preoperatively. Patient was placed in dorsal supine position with a leftward tilt. SCDs in place. Swartz catheter had been placed and was draining clear urine prior to the start of the procedure. heart tones were obtained. Patient was then prepped and draped in normal sterile fashion. Allis clamp test was performed to ensure adequate anesthesia. A Pfannenstiel skin incision was made 2 cm above pubic symphysis at prior Pfannenstiel scar. This was carried through to underlying layer of fascia. Fascia was incised in midline, extended laterally with Delacruz scissors. Superior aspect of fascial incision was grasped with two Deya clamps, elevated up, and rectus muscle dissected off bluntly and sharply with Delacruz scissors. Inferior aspect of fascial incision was grasped with two Deya clamps, elevated up, and rectus muscle dissected off bluntly and sharply with Delacruz scissors. The retcus muscle was then in the midline and the peritoneum was entered bluntly with a digit. Peritoneal incision was then extended superiorly and inferiorly with good visualization of the bladder. Servando retractor was inserted. The lower uterine segment was incised in a transverse fashion. Clear amniotic fluid was noted. Head was delivered without difficulty. Nuchal x 1 was easily reduced. Remainder of body was delivered without difficulty. Mouth and nares were bulb suctioned. Spontaneous cry was noted. Delayed cord clamping was performed for 60 seconds. The umbilical cord was clamped and cut. The infant was handed to awaiting pediatric staff in stable condition. Dr. Grajeda was present. Apgars were 8(1 min), 9(5 min). Cord blood was obtained. Gentle traction on the umbilical cord and uterine fundal massage delivered the placenta. Placenta was intact. Uterus was cleared of all clots and debris with a moist laparotomy sponge. Corners of the uterine incision were grasped with Allis clamps. The uterine incision was reapproximated with # 1 Vicryl suture in a running, locked stitch. Second layer of the same stitch was used to imbricate the incision. Vesicouterine peritoneum was reapproximated in a running locked stitch with 0-Vicryl suture. Hemostasis was noted. Posterior cul-de-sac was cleaned with moist laparotomy sponge. Gutters cleared of all clots and debris with a moist laparotomy sponge. Reinspection of the lower uterine segment demonstrated hemostasis. At this point all instruments and sponges were removed from the pelvis.? The peritoneum was grasped with Phyllis clamps x 3. The peritoneum was reapproximated with 0 Vicryl suture in a running stitch. The corners of the fascia were grasped with Deya clamps, and the fascia was reapproximated with two # 1 Vicryl
--- NOTE | 2023-02-15 08:34 | EXP.ANES.CKL ---
[facility] Disclaimer: The information contained in this section may have been updated after the patient was seen, as this information can be updated by other users. 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 (Updated 02/15/23 @ 07:21 by Aminta Hutchins DO) Anxiety Chronic hypertension affecting Depression Gestational diabetes mellitus (GDM) Heartburn in in third trimester History of gestational diabetes History of gestational diabetes in prior , currently Maternal obesity affecting , antepartum Migraine Otalgia of both ears with 39 completed weeks gestation Tinnitus Surgical History History of Family History Other Coronary artery disease Diabetes Social History Smoking Status: Never smoker alcohol intake: never substance use type: denies use current occupational status: unemployed Travel in the last 8 weeks: None [facility] Anesthesia Checklist Patient Identification Patient Identification: Verbal (Name & ) Structural Data Admitted From: Inpatient Planned Operative Procedure/s: c/section Consent for Planned Operative Procedure(s) Verified: Yes Airway Assessment Mallampati Score:: Class II C-Spine Mobility Assessed: Yes TMJ Mobility Assessed: Yes Dentition: Good Dentition Neurological Assessment Level of Consciousness: Awake, Alert and Appropriate Anesthesia Plan Anesthesia Risk discussed: Yes Anesthesia Plan: Verified ASA Class: II Anesthesia Type: Spinal
--- NOTE | 2023-02-15 08:35 | P.PNANES_ITS ---
[facility] Anesthesia Record Part I Anesthesia Record I Intake, IV Amount: 1,200 Hydration: Adequate Estimated blood loss (mL): 400 Urine output (mL): 200 Blood Pressure: 136/78 SaO2: 97 Pulse Rate: 75 Airway Patency: Patent Respiratory Rate: 12 Temperature: 97.3 F Patient is:: Awake and Stable
--- NOTE | 2023-02-15 11:35 | SUR.OPER ---
0751- viable infant female born at this time
[2023-02-16 04:06] VITALS: BP 106/70; PULSE 83; RESP 16; TEMP 36.6
[2023-02-16 06:23] LABS: Basophils % 0.3 % (0.1-2.0); Eosinophils # 0.1 K/mm3 (0.0-0.4); Eosinophils % 1.2 % (0.1-12.0); Hemoglobin 11.1 g/dL (12.2-16.2); Lymphocytes # 1.6 K/mm3 (0.7-4.5); Lymphocytes % 25.5 % (10-50); Mean Corpuscular HGB Conc 33.6 g/dL (31.8-35.4); Mean Corpuscular Hemoglobin 28.2 pg (27.0-31.2); Mean Corpuscular Volume 83.9 fl (81-99); Mean Platelet Volume 9.4 fl (7.4-10.4); Monocytes # 0.4 K/mm3 (0.1-1.0); Monocytes % 5.4 % (1.7-9.3); Neutrophils # 4.4 K/mm3 (1.8-7.8); Neutrophils % 67.5 % (37.0-80.0); Platelet Count 245 K/mm3 (142-424); Red Blood Count 3.94 M/mm3 (4.20-5.40); Red Cell Distribution Width 15.7 % (11.5-17.5); White Blood Count 6.4 K/mm3 (4.8-10.8)
[2023-02-16 08:53] VITALS: BP 123/70; PULSE 79; RESP 18; TEMP 36.7; O2SAT 97
--- NOTE | 2023-02-16 11:05 | EXP.ANES.II ---
[facility] Anesthesia Record Part II Anesthesia Record Part II Discharge Time: 09:03 Destination: Obstetric PACU nurse assessment reviewed?: Yes Patient Condition:: Good Anesthesia Complications:: None Swallowing reflex intact?: Yes Airway Patency: Patent Cyanosis?: No Blood Pressure: 136/48 SaO2: 98 Respiratory Rate: 16 Pulse Rate: 74 Temperature: 97.3 F Mental Status: Alert & Oriented Pain level:: 0 Nausea and/or vomitting:: None Intake, IV Amount: 0 Hydration: Adequate
[2023-02-16 11:06] VITALS: BP 136/48; PULSE 74; RESP 16; TEMP 36.3; O2SAT 98
--- NOTE | 2023-02-16 12:28 | EXP.ACUTE.PN ---
Subjective *Date: 02/16/23 *Time: 12:28 Interval history: POD # 1 s/p RLTCS Sitting comfortably in bed. Pain controlled. Lochia appropriate. Breast and formula feeding. Voiding without difficulty and passing flatus. Tolerating regular diet. Denies fever/chills, chest pain and shortness of breath. No headaches, dizziness/lightheadedness. No lower extremity swelling. Ambulating well ad jes. Medical Exam Vital signs and Labs for Last 24 Hours: Vital Signs Temp Pulse Resp BP Pulse Ox O2 Del Method 02/16/23 08:53 98.0 F 79 18 123/70 97 Room Air 02/16/23 04:06 97.8 F 83 16 106/70 L 02/15/23 23:39 97.8 F 67 17 132/65 97 Room Air 02/15/23 20:29 97.6 F 67 17 131/87 97 Room Air 02/16/23 11:06 16 Intake and Output 02/15/23 02/16/23 02/16/23 23:59 07:59 15:59 Intake Total 0 / 0 Output Total 1600 / 1600 Balance -1600 / -400 0 / 0 Intake: Intake, Total IV Amount 0 / 0 Output: Output, Urine Amount (Catheter) 1600 / 1600 Swartz 1600 / 1600 Laboratory Results - last 24 hr 02/16/23 06:09: WBC 6.4, RBC 3.94 L, Hgb 11.1 L, Hct 33.0 L, MCV 83.9, MCH 28.2, MCHC 33.6, RDW 15.7, Plt Count 245, MPV 9.4, Neut % (Auto) 67.5, Lymph % (Auto) 25.5, Catron % (Auto) 5.4, Eos % (Auto) 1.2, Baso % (Auto) 0.3, Neut # (Auto) 4.4, Lymph # (Auto) 1.6, Catron # (Auto) 0.4, Eos # (Auto) 0.1, Baso # (Auto) 0.0 I & O for Labs for Last 24 Hours: Intake & Output 02/13/23 02/14/23 02/15/23 02/16/23 23:59 23:59 23:59 23:59 Intake Total 1200 / 1200 0 / 0 Output Total 1600 / 1600 Balance -400 / -400 0 / 0 Weight 223 lb Head: Present atraumatic and normocephalic ENT: Present mucous membranes moist Neck: Present full ROM Respiratory: Present CTA bilaterally and normal respiratory effort Cardiac: Present Reg Rate and Rhythm GI: Present soft and normal bowel sounds; Absent distention, tenderness or guarding Comments:: Uterine fundus firm and below umbilicus, pfannenstiel incision clean/dry/intact with steri strips in place Rectal (female): Present deferred (female): Present deferred Extremities: Present full ROM; Absent edema or calf tenderness Neuro: Present alert, awake, oriented x 3 and moves all extremities Assessment and Plan *Assessment and plan (1) with 39 completed weeks gestation: Status: Acute Category: Medical Code(s): Z3A.39 - 39 weeks gestation of (2) S/P : Status: Acute Category: Surgical Code(s): Z98.891 - History of uterine scar from previous surgery (3) Gestational diabetes mellitus (GDM): Problem Comment: on insulin Status: Acute Qualifiers: Gestational diabetes mellitus control: insulin-controlled Trimester: third trimester Qualified Code(s): O24.414 - Gestational diabetes mellitus in , insulin controlled Category: Medical Code(s): O24.419 - Gestational diabetes mellitus in , unspecified control (4) Chronic hypertension affecting : Status: Acute Category: Medical Code(s): O10.919 - Unspecified pre-existing hypertension complicating , unspecified trimester (5) Maternal obesity affecting , antepartum: Status: Acute Qualifiers: Obesity type affecting : unspecified obesity Qualified Code(s): O99.210 - Obesity complicating , unspecified trimester Category: Medical Code(s): O99.210 - Obesity complicating , unspecified trimester Plan Continue routine care Encouraged increased ambulation Continue labetalol 100 mg PO BID Plan d/c home tomorrow, POD # 2
[2023-02-16 16:16] VITALS: BP 120/79; PULSE 99; RESP 18; TEMP 36.8; O2SAT 96
--- NOTE | 2023-02-17 09:48 | EXP.DC.SUM ---
General Admission date:: 02/15/23 Discharge date: 02/17/23 HPI HPI HPI: POD # 2 s/p RLTCS Feeling well. Sitting comfortably in bed. Pain controlled. Breast feeding. Light lochia. Voiding without difficulty and passing flatus. Tolerating regular diet. Denies fever/chills, chest pain and shortness of breath. No headaches, vision changes, lightheadedness/dizziness. Ambulating well ad jes. Denies lower extremity swelling. Hospital Course Hospital Course Hospital Course: Mrs Jory Clifford is a 28 yo at 39w1d who presented to [facility] for scheduled repeat . History of x 1. complicated by chronic hypertension for which she is taking Labetalol 100 mg PO BID and gestational diabetes. She is taking glyburide 2.5 mg PO in the AM and NPH 10 units in the PM. She has had good care. She underwent repeat on 02/15/23. She delivered a live female baby, Sirisha, weighing 7 lb 4 oz, APGARs 8, 9. EBL 400 mL. She did well postoperatively. Pain controlled. Breast feeding. Light lochia. Voiding without difficulty and passing flatus. Tolerating regular diet. Denies fever/chills, chest pain and shortness of breath. No headaches, vision changes, lightheadedness/dizziness. Ambulating well ad jes. Denies lower extremity swelling. Vital signs stable, afebrile. Heart regular rate and rhythm. Lungs clear to auscultation. Abdomen soft, nontender. No lower extremity edema. No calf tenderness to palpation. Normal hospital course. Discharged home on POD # 2. Exam Data for Last 24 hours Vital signs and Labs for Last 24 Hours: Temp Pulse Resp BP Pulse Ox O2 Del Method 98.2 F 99 H 18 120/79 96 Room Air 02/16/23 16:16 02/16/23 16:16 02/16/23 16:16 02/16/23 16:16 02/16/23 16:16 02/16/23 16:16 I & O for Last 24 hours: Intake & Output 02/14/23 02/15/23 02/16/23 02/17/23 23:59 23:59 23:59 23:59 Intake Total 1200 / 1200 0 / 0 Output Total 1600 / 1600 Balance -400 / -400 0 / 0 Weight 223 lb Constitutional Constitutional: no acute distress *Routine HEENT Exam Head: Present normocephalic and atraumatic Eye: Absent conjunctivae pink ENT: Present mucous membranes moist *Routine Neck Exam Neck: Present full ROM *Routine Respiratory Exam Respiratory: Present CTA bilaterally and normal respiratory effort *Routine Cardiovascular Exam Cardiovascular: Present RRR *Routine Abdominal Exam Abdominal: Present soft and normoactive bowel sounds; Absent tenderness or distended Comments: Uterine fundus firm and below umbilicus, Pfannenstiel incision clean/dry/intact, steri strips in place *Routine Rectal Exam Patient deferred: visual exam *Routine Exam Patient deferred: external exam *Routine Extremities Exam Extremities: Present full ROM; Absent edema or calf tenderness *Routine Neurological Exam Neurological: Present alert, oriented X3 and moving all extremities Routine Psychiatric Exam Psychiatric: Present normal affect and cooperative DS: Diagnosis Discharge Diagnosis (1) with 39 completed weeks gestation: Status: Acute Code(s): Z3A.39 - 39 weeks gestation of (2) S/P : Status: Acute Code(s): Z98.891 - History of uterine scar from previous surgery (3) Gestational diabetes mellitus (GDM): Status: Acute Code(s): O24.419 - Gestational diabetes mellitus in , unspecified control Qualifiers: Gestational diabetes mellitus control: insulin-controlled Trimester: third trimester Qualified Code(s): O24.414 - Gestational diabetes mellitus in , insulin controlled Problem details: on insulin (4) Chronic hypertension affecting : Status: Acute Code(s): O10.919 - Unspecified pre-existing hypertension complicating , unspecified trimester (5) Maternal obesity affecting , antepartum: Status: Acute Code(s): O99.210 - Obesity complicating pregn
== END 2023-02-17 12:15 | disposition home or self-care (01) | DRG 788 ==
PROVIDERS: Admitting Provider Obstetrics & Gynecology; PCP Nurse Practitioner Family; Visit Provider Obstetrics & Gynecology
PROC: 10D00Z1 Extraction of Products of Conception, Low, Open Approach (ICD-10-PCS; CPT 59514; principal; 2023-02-15 07:30)
DX: O10.92 Unspecified pre-existing hypertension complicating childbirth (principal); Z3A.39 39 weeks gestation of pregnancy; Z37.0 Single live birth; O99.214 Obesity complicating childbirth; O34.211 Maternal care for low transverse scar from previous cesarean delivery; O69.81X0 Labor and delivery complicated by cord around neck, without compression, not applicable or unspecified; O24.425 Gestational diabetes mellitus in childbirth, controlled by oral hypoglycemic drugs
CPT/HCPCS: 59514; 36415; 59025; 80053; 80305; 81001; 82800; 85025; 86850; 87086; 94761; G0283

== ENCOUNTER 2023-04-09 21:03 | Emergency (ER) | payer BC, SELFPAY ==
[2023-04-09 21:14] VITALS: BP 127/104; PULSE 83; RESP 18; TEMP 36.6; O2SAT 98; BMI 35.4
[2023-04-09 21:30] VITALS: BP 134/72; PULSE 63; O2SAT 99
--- NOTE | 2023-04-09 21:54 | XR_ITS ---
PROCEDURE INFORMATION: Exam: XR Chest Exam date and time: 04/09/2023 10:03 PM Age: 28 years old Clinical indication: Dyspnea TECHNIQUE: Imaging protocol: Radiologic exam of the chest. Views: 1 view. COMPARISON: ABDPELW CT abdomen pelvis w con 12/17/2017 10:49 AM FINDINGS: Lungs: Unremarkable. No consolidation. Pleural spaces: Unremarkable. No pleural effusion. No pneumothorax. Heart/Mediastinum: Unremarkable. No cardiomegaly. Bones/joints: Unremarkable. IMPRESSION: No acute findings.
--- NOTE | 2023-04-09 21:55 | HMH.EDGENADL ---
Discharge Plan Disposition Patient Disposition: Home, Self-Care Prescriptions Prescriptions: No Action propranolol 80 mg tablet 80 mg PO BID Qty: 60 0RF etonogestrel-ethinyl estradiol [NuvaRing] 0.12-0.015 mg/24 hr ring 1 vag ring vaginal Q4W Qty: 3 12RF Rx Instructions: leave in place for 3 weeks of a 4-week cycle Referrals Follow up/Referrals: Yue Navarro APRN [Primary Care Provider] - See instructions Deandre Alcala MD [Staff Physician] - See instructions Activity Restrictions/Add. Instructions Additional Instructions/Restrictions: Commend that you follow-up with a dental technician or with Dr. Alcala for an outpatient EGD given the chronicity of your symptoms and the concern for peptic ulcer disease versus gastroesophageal reflux disease. Continue to take your Protonix and your antacid medications. Return with any worsening shortness of breath chest pain or other concerns. Clinical Impressions Clinical Impression: Epigastric abdominal pain, Chest pain, pleuritic, Chronic GERD Instructions Patient Instructions: DI for Acute Abdominal Pain Discharge ED Provider: Juan Xiong General Adult HPI General Chief complaint: Abdominal Pain Stated complaint: abd pain Time Seen by Provider: 04/09/23 21:42 Mode of Arrival: Ambulatory Source of Information: Patient Limitations: No Limitations Description of Symptoms (Recalled from ER Triage Doc. by RN): Pt ambulatory to ED with c/o sharp upper abdominal pain X2 days. Pt states pain radiates into her back, and ribs. Pt states she has been taking Gas-X, Protonix, and tums, and these meds had been working until today. Pt reports nausea. Denies any vomiting or diarrhea. Pt states she is 7 weeks post-. History of Present Illness HPI narrative: Is a 28-year-old female with a history of chronic epigastric abdominal pain without any definitive etiology in the past who presented today with worsening pain in the upper region of her abdomen and some pleuritic chest discomfort in the same region which prompted the ED visit. States she has a history of taking acid type medications including Protonix and Tums and she has had improvement to some extent in the past but not today. Has never had an endoscopy does not carry a diagnosis of gastroesophageal reflux disease or peptic ulcer disease. States that she is possibly on hormone therapy with a vaginal ring that may be secreting hormones but not on estrogen therapy that she is aware of definitively. She states the pain is primarily on the right upper quadrant and left upper quadrant worsening with inspiration. No fevers cough or shortness of breath. No chest pain or exertional symptoms. Denies any hematemesis melena hematochezia or any lower abdominal discomfort. Related Data Previous Rx's Medication Instructions Recorded etonogestrel 0.12 mg-ethinyl 1 vag ring vaginal Q4W #3 ea 03/29/23 estradiol 0.015 mg/24 hr vaginal ring (NuvaRing) propranolol 80 mg tablet 80 mg PO BID headache prevention, 03/29/23 anx #60 tabs Allergies Allergy/AdvReac Type Severity Reaction Status Date / Time Penicillins Allergy Mild Verified 03/29/23 10:39 [facility] Disclaimer: The information contained in this section may have been updated after the patient was seen, as this information can be updated by other users. 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 Anxiety Depression Gestational diabetes mellitus (GDM) on insulin History of gestational diabetes Migraine Otalgia of both ears Tinnitus Surgical History History of S/P Family History Other Coronary artery disease Diabetes Social History Smoking Status: Never smoker alcohol intake: never substance use type: denies use current occupation
[2023-04-09 22:07] LABS: Basophils % 0.3 % (0.1-2.0); Eosinophils # 0.1 K/mm3 (0.0-0.4); Hematocrit 39.6 % (37.0-47.0); Hemoglobin 12.9 g/dL (12.2-16.2); Lymphocytes # 2.6 K/mm3 (0.7-4.5); Lymphocytes % 22.6 % (10-50); Mean Corpuscular HGB Conc 32.7 g/dL (31.8-35.4); Mean Corpuscular Hemoglobin 27.4 pg (27.0-31.2); Mean Corpuscular Volume 83.7 fl (81-99); Monocytes # 0.4 K/mm3 (0.1-1.0); Neutrophils # 8.3 K/mm3 (1.8-7.8); Neutrophils % 73.1 % (37.0-80.0); Platelet Count 303 K/mm3 (142-424); Red Blood Count 4.72 M/mm3 (4.20-5.40); Red Cell Distribution Width 16.7 % (11.5-17.5); White Blood Count 11.4 K/mm3 (4.8-10.8)
[2023-04-09 22:12] LABS: Alanine Aminotransferase 50 U/L (12-78); Alkaline Phosphatase 103 U/L (38-126); Aspartate Amino Transferase 40 U/L (14-36); Bilirubin,Total 0.5 mg/dl (0.2-1.3); Blood Urea Nitrogen 19 mg/dl (7-17); Calcium 8.8 mg/dl (8.4-10.2); Carbon Dioxide 27 mmol/L (22.0-30.0); Chloride 102 mmol/L (98-107); Creatinine Clearance Estimated 147 mL/min (50-200); Estimated Glomerular Filt Rate 84 ml/min (>60); GFR (African American) 102 ML/MIN (>60); Glucose 102 mg/dl (74-100)
[2023-04-09 22:13] LABS: Albumin Level 4.7 g/dl (3.5-5.0); Albumin/Globulin Ratio 1.7 (1.1-1.8); Anion Gap 12.9 mEq/L (5-15); Globulin 2.7 g/dL (1.3-3.2); Lipase 123 U/L (23-300); Potassium 3.9 mmoL/L (3.5-5.1); Sodium 138 mmol/L (136-145); Total Protein,Serum 7.4 g/dl (6.3-8.2)
[2023-04-09 22:17] LABS: D-Dimer 0.86 ug/mL (0.0-0.5)
[2023-04-09 22:26] LABS: Troponin I < 0.01 ng/ml (0.00-0.034)
[2023-04-09 22:44] VITALS: BP 120/61; PULSE 55; RESP 16; TEMP 36.6; O2SAT 98
== END 2023-04-09 22:50 | disposition home or self-care (01) ==
PROVIDERS: Emergency Provider Student in an Organized Health Care Education/Training Program; PCP Nurse Practitioner Family
DX: R10.13 Epigastric pain (principal); R07.81 Pleurodynia; R11.0 Nausea; K21.9 Gastro-esophageal reflux disease without esophagitis; F41.9 Anxiety disorder, unspecified; F32.A Depression, unspecified
CPT/HCPCS: 71045; 80053; 83690; 84484; 85025; 85378; 96361; 96374; 99285

== ENCOUNTER → 2023-05-02 23:11 | Outpatient (CLI) | payer BC, SELFPAY | PROVIDERS: PCP Nurse Practitioner Family; Visit Provider Student in an Organized Health Care Education/Training Program | DX: J02.9 Acute pharyngitis, unspecified (principal) | CPT/HCPCS: 87070 ==

== ENCOUNTER → 2023-05-03 07:29 | Outpatient (CLI) | payer BC, SELFPAY ==
--- NOTE | 2023-05-03 07:29 | US_ITS ---
FINAL REPORT CLINICAL HISTORY: Right upper quad pain FINDINGS: RIGHT UPPER QUADRANT ULTRASOUND Sonographic images of the right upper quadrant were obtained. The pancreas is partially obscured.The liver has an unremarkable appearance. There are multiple small gallstones in the gallbladder. The gallbladder is incompletely distended. The common duct is normal. Limited images of the right kidney are normal. IMPRESSION: Cholelithiasis. Reviewed, Interpreted and Dictated by Nathanael Gomez MD Transcribed by Nicolasa Shannon Authenticated and [facility]
[2023-05-03 08:12] LABS: Basophils # 0.1 K/mm3 (0-0.2); Basophils % 1.1 % (0.1-2.0); Eosinophils # 0.1 K/mm3 (0.0-0.4); Hematocrit 42.1 % (37.0-47.0); Hemoglobin 13.9 g/dL (12.2-16.2); Lymphocytes # 2.2 K/mm3 (0.7-4.5); Lymphocytes % 39.7 % (10-50); Mean Corpuscular HGB Conc 33.1 g/dL (31.8-35.4); Mean Corpuscular Hemoglobin 27.6 pg (27.0-31.2); Mean Corpuscular Volume 83.5 fl (81-99); Mean Platelet Volume 8.7 fl (7.4-10.4); Monocytes # 0.3 K/mm3 (0.1-1.0); Monocytes % 5.6 % (1.7-9.3); Neutrophils # 2.9 K/mm3 (1.8-7.8); Neutrophils % 51.5 % (37.0-80.0); Platelet Count 298 K/mm3 (142-424); Red Blood Count 5.04 M/mm3 (4.20-5.40); Red Cell Distribution Width 16.4 % (11.5-17.5); White Blood Count 5.6 K/mm3 (4.8-10.8)
[2023-05-03 09:05] LABS: Alanine Aminotransferase 36 U/L (12-78); Albumin Level 4.5 g/dl (3.5-5.0); Albumin/Globulin Ratio 1.7 (1.1-1.8); Alkaline Phosphatase 84 U/L (38-126); Amylase 49 U/L (30-110); Anion Gap 10.4 mEq/L (5-15); Aspartate Amino Transferase 25 U/L (14-36); Bilirubin,Total 0.4 mg/dl (0.2-1.3); Blood Urea Nitrogen 14 mg/dl (7-17); Calcium 9.1 mg/dl (8.4-10.2); Carbon Dioxide 29 mmol/L (22.0-30.0); Chloride 103 mmol/L (98-107); Estimated Glomerular Filt Rate 74 ml/min (>60); GFR (African American) 89 ML/MIN (>60); Globulin 2.6 g/dL (1.3-3.2); Glucose 88 mg/dl (74-100); Lipase 74 U/L (23-300); Potassium 4.4 mmoL/L (3.5-5.1); Sodium 138 mmol/L (136-145); Total Protein,Serum 7.1 g/dl (6.3-8.2)
== END ==
PROVIDERS: PCP Nurse Practitioner Family; Visit Provider Surgery
DX: R10.13 Epigastric pain (principal)
CPT/HCPCS: 36415; 76705; 80053; 82150; 83690; 85025

== ENCOUNTER 2023-08-16 12:24 | Outpatient (CLI) | payer BC, SELFPAY ==
[2023-08-16 12:59] LABS: Basophils # 0.1 K/mm3 (0-0.2); Basophils % 0.9 % (0.1-2.0); Eosinophils # 0.2 K/mm3 (0.0-0.4); Eosinophils % 2.1 % (0.1-12.0); Hematocrit 40.8 % (37.0-47.0); Hemoglobin 13.2 g/dL (12.2-16.2); Lymphocytes # 2.8 K/mm3 (0.7-4.5); Lymphocytes % 40.3 % (10-50); Mean Corpuscular HGB Conc 32.3 g/dL (31.8-35.4); Mean Platelet Volume 8.8 fl (7.4-10.4); Monocytes # 0.3 K/mm3 (0.1-1.0); Monocytes % 3.9 % (1.7-9.3); Neutrophils # 3.7 K/mm3 (1.8-7.8); Neutrophils % 52.8 % (37.0-80.0); Platelet Count 318 K/mm3 (142-424); Red Blood Count 4.69 M/mm3 (4.20-5.40); Red Cell Distribution Width 14.4 % (11.5-17.5); White Blood Count 7.1 K/mm3 (4.8-10.8)
[2023-08-16 13:18] LABS: Urine Pregnancy, HCG Qual. Negative (Negative)
[2023-08-16 13:27] LABS: Alanine Aminotransferase 23 U/L (12-78); Albumin Level 4.3 g/dl (3.5-5.0); Albumin/Globulin Ratio 1.8 (1.1-1.8); Alkaline Phosphatase 72 U/L (38-126); Anion Gap 10.2 mEq/L (5-15); Aspartate Amino Transferase 23 U/L (14-36); Bilirubin,Total 0.4 mg/dl (0.2-1.3); Blood Urea Nitrogen 15 mg/dl (7-17); Calcium 9.6 mg/dl (8.4-10.2); Carbon Dioxide 24 mmol/L (22.0-30.0); Chloride 109 mmol/L (98-107); Estimated Glomerular Filt Rate 98 ml/min (>60); GFR (African American) 119 ML/MIN (>60); Globulin 2.4 g/dL (1.3-3.2); Glucose 111 mg/dl (74-100); Potassium 4.2 mmoL/L (3.5-5.1); Sodium 139 mmol/L (136-145); Total Protein,Serum 6.7 g/dl (6.3-8.2)
== END 2023-08-16 23:59 | disposition home or self-care (01) ==
LOC: LAB 12:24
PROVIDERS: PCP Nurse Practitioner Family; Visit Provider Surgery
DX: K80.20 Calculus of gallbladder without cholecystitis without obstruction (principal)
CPT/HCPCS: 36415; 80053; 81025; 85025

== ENCOUNTER 2023-08-17 06:07 | Day surgery (SDC) | payer BC, SELFPAY ==
[2023-08-17] VITALS (11 sets, daily range): BP systolic 95–159; BP diastolic 42–95; PULSE 69–110; RESP 15–18; TEMP 36.4–36.9; O2SAT 94–99; BMI 38.9
[2023-08-17] MEDS: LACTATED RINGERS 1000ML 1,000 ML 25 ML IV (06:23)
[2023-08-17] MEDS: CLINDAMYCIN PHOSPHATE/D5W 900 MG/50 ML PIGGYBACK 106 MG IV (07:30)
--- NOTE | 2023-08-17 07:32 | P.PNANES_ITS ---
[facility] Disclaimer: The information contained in this section may have been updated after the patient was seen, as this information can be updated by other users. 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 Chronic hypertension affecting Otalgia of both ears Tinnitus History of gestational diabetes Migraine Depression Anxiety Gestational diabetes mellitus (GDM) Surgical History History of Family History Other Coronary artery disease Diabetes Social History Smoking Status: Never smoker alcohol intake: never substance use type: denies use current occupational status: unemployed Travel in the last 8 weeks: None [facility] Anesthesia Checklist Patient Identification Patient Identification: Arm Band Structural Data Admitted From: Home Planned Operative Procedure/s: Laparoscopic Cholecystectomy Consent for Planned Operative Procedure(s) Verified: Yes Verified Documents: Surgical Consent and History and Physical NPO Status Verified Time NPO: 00:00 Additional verifications Anesthesia Reactions: No Hx Blood Transfusions: No Blood Transfusion Reaction: No Airway Assessment Mallampati Score:: Class II C-Spine Mobility Assessed: Yes TMJ Mobility Assessed: Yes Dentition: Good Dentition Neurological Assessment Level of Consciousness: Awake and Alert Anesthesia Plan Anesthesia Risk discussed: Yes Anesthesia Plan: Verified ASA Class: II Anesthesia Type: General
[2023-08-17] MEDS: LIDOCAINE 1% 20ML MDV 20 ML (07:45)
--- NOTE | 2023-08-17 08:34 | EXP.OP.NOTE ---
Date of procedure: 08/17/23 Pre-op Diagnosis:: Symptomatic cholelithiasis Post-op Diagnosis:: Chronic calculus cholecystitis Procedure performed:: Laparoscopic cholecystectomy Surgeon:: Deandre Alcala MD SUPPLY ASSISTANT:: Vamshi Ordoñez Anesthesia: GETA Estimated blood loss (mL): 15 Operative findings:: Fairly severe pericholecystic fat stranding Moderate to severe infundibular thickening Operative note:: After informed consent was obtained, the patient was taken to the operating room and placed in the supine position. General anesthesia was induced and the abdomen was prepped and draped in a sterile fashion. After infiltration with local anesthetic an infraumbilical incision was made. A Veress needle was placed in position. The abdomen was insufflated. A 5 mm optical trocar was placed in position. Under direct visualization, a 12 mm trocar was placed in the subxiphoid position and 2 additional 5 mm trocars were placed in the right upper quadrant. The gallbladder was elevated up and over the liver margin. The tissue around the cystic duct was carefully dissected. 3 clips were placed proximally and the duct was transected with harmonic maría elena. Harmonic maría elena were then utilized to dissect the gallbladder away from the liver margin with careful attention to the control of the cystic artery. The gallbladder was placed in a retrieval bag and removed through the subxiphoid trocar site. The right upper quadrant was thoroughly irrigated. No active bleeding or bile leak was noted. Fascia at the subxiphoid trocar site was reapproximated utilizing the NeoClose device. The remaining trocars were removed. All wounds were irrigated and skin was closed with 4-0 Monocryl in a subcuticular fashion. Steri-Strips were applied. The patient's anesthetic agents were reversed and extubation was completed prior to transfer to recovery in stable condition. Condition: stable Disposition: PACU Specimens:: Gallbladder and contents Complications:: No immediate
--- NOTE | 2023-08-17 08:45 | EXP.ANES.I ---
[facility] Anesthesia Record Part I Anesthesia Record I Intake, IV Amount: 1,200 Hydration: Adequate Estimated blood loss (mL): 10 Urine output (mL): 0 Blood Products used (#): none Blood Pressure: 159/95 SaO2: 94 Pulse Rate: 110 Airway Patency: Patent Respiratory Rate: 16 Temperature: 98.5 F Patient is:: Drowsy and Stable Stable to PACU at:: 08:40
[2023-08-17] MEDS: HYDROMORPHONE 2MG/ML SYRINGE 0.5 MG IV ×2 (09:01→09:07)
[2023-08-17] MEDS: ONDANSETRON 4MG/2ML VIAL 4 MG IV (09:08)
--- NOTE | 2023-08-17 10:57 | EXP.ANES.II ---
[facility] Anesthesia Record Part II Anesthesia Record Part II Discharge Time: 09:15 Destination: Surgical Day Care (OP Surgery) PACU nurse assessment reviewed?: Yes Patient Condition:: Good Anesthesia Complications:: None Swallowing reflex intact?: Yes Airway Patency: Patent Cyanosis?: No Blood Pressure: 136/87 SaO2: 95 Respiratory Rate: 16 Pulse Rate: 92 Temperature: 97.6 F Mental Status: Alert & Oriented Pain level:: 3 Nausea and/or vomitting:: None Intake, IV Amount: 0 Hydration: Adequate
== END 2023-08-17 10:00 | disposition home or self-care (01) ==
PROVIDERS: PCP Nurse Practitioner Family; Visit Provider Surgery
PROC: 0FT44ZZ Resection of Gallbladder, Percutaneous Endoscopic Approach (ICD-10-PCS; CPT 47562; principal; 2023-08-17 07:30)
DX: K80.10 Calculus of gallbladder with chronic cholecystitis without obstruction (principal)
CPT/HCPCS: 47562; 96374; J3490; J2405

== ENCOUNTER 2023-09-22 21:42 | Emergency (ER) | payer BC, SELFPAY ==
[2023-09-22 22:20] VITALS: BP 163/100; PULSE 89; RESP 22; TEMP 36.8; O2SAT 99; BMI 32.3
[2023-09-22 22:24] VITALS: BP 145/112; PULSE 100; O2SAT 98
[2023-09-22 22:26] LABS: Microscopic, Urine URINE MICROSCOPIC (MICROSCOPIC)
--- NOTE | 2023-09-22 22:30 | CT_ITS ---
PROCEDURE INFORMATION: Exam: CTA Chest With Contrast Exam date and time: 09/22/2023 10:57 PM Age: 28 years old Clinical indication: Pain; Other: R pleuritic cp/upper abd; Additional info: R pleuritic cp/upper abd pain TECHNIQUE: Imaging protocol: Computed tomographic angiography of the chest with contrast. Exam focused on the arteries. 3D rendering (Not supervised by radiologist): MIP and/or 3D reconstructed images were created by the technologist. Radiation optimization: All CT scans at this facility use at least one of these dose optimization techniques: automated exposure control; mA and/or kV adjustment per patient size (includes targeted exams where dose is matched to clinical indication); or iterative reconstruction. Contrast material: ISOUVE 370; Contrast volume: 70 ml; Contrast route: INTRAVENOUS (IV); COMPARISON: CR XR CHEST PORTABLE 04/09/2023 10:03 PM FINDINGS: Pulmonary arteries: Evaluation of the segmental pulmonary artery branches is limited by excessive motion artifact and cannot be evaluated for subtle acute emboli. Central pulmonary arteries are free of emboli and there are grossly no large occlusive peripheral emboli. Aorta: Unremarkable. No aortic aneurysm. No aortic dissection. Lungs: Unremarkable. No consolidation. No masses. Pleural spaces: Unremarkable. No pneumothorax. No pleural effusion. Heart: Unremarkable. No cardiomegaly. No pericardial effusion. Lymph nodes: Unremarkable. No enlarged lymph nodes. Bones/joints: Unremarkable. No acute fracture. Soft tissues: Unremarkable. IMPRESSION: 1. Evaluation of the segmental pulmonary artery branches is limited by excessive motion artifact and cannot be evaluated for subtle acute emboli. Central pulmonary arteries are free of emboli and there are grossly no large occlusive peripheral emboli. 2. No other acute findings.
--- NOTE | 2023-09-22 22:30 | CT_ITS ---
PROCEDURE INFORMATION: Exam: CT Abdomen And Pelvis With Contrast Exam date and time: 09/22/2023 10:57 PM Age: 28 years old Clinical indication: Abdominal pain; Prior surgery; Surgery date: 1-6 months; Surgery type: Recent vitaly; Additional info: Ruq/r back pain, recent vitaly TECHNIQUE: Imaging protocol: Computed tomography of the abdomen and pelvis with contrast. Radiation optimization: All CT scans at this facility use at least one of these dose optimization techniques: automated exposure control; mA and/or kV adjustment per patient size (includes targeted exams where dose is matched to clinical indication); or iterative reconstruction. Contrast material: ISOVUE; Contrast volume: 70 ml; Contrast route: IV; COMPARISON: ABDPELW CT abdomen pelvis w con 12/17/2017 10:49 AM FINDINGS: Lungs: Lung bases are clear. Liver: Fatty liver changes with associated hepatomegaly measuring 20 cm. Liver previously measured 17 cm. Liver otherwise unremarkable. Gallbladder and bile ducts: Status post cholecystectomy. No evident bile duct dilatation allowing for prior cholecystectomy. Pancreas: Normal. No ductal dilation. Spleen: Normal. No splenomegaly. Adrenal glands: Normal. No mass. Kidneys and ureters: Normal. No hydronephrosis. Stomach and bowel: Unremarkable. No obstruction. No mucosal thickening. Appendix: Appendix is normal. No evidence of appendicitis. Intraperitoneal space: Unremarkable. No free air. No significant fluid collection. Vasculature: Unremarkable. No abdominal aortic aneurysm. Lymph nodes: Unremarkable. No enlarged lymph nodes. Urinary bladder: Unremarkable as visualized. Reproductive: Unremarkable as visualized. Bones/joints: Unremarkable. No acute fracture. Soft tissues: Unremarkable. IMPRESSION: 1. Mild fatty liver changes with associated hepatomegaly with interval increase in size since CT from 2017. 2. No acute abnormality otherwise seen..
[2023-09-22 22:31] VITALS: BP 157/103; PULSE 110; O2SAT 98
[2023-09-22 22:32] VITALS: BP 152/111; PULSE 100; O2SAT 96
[2023-09-22 22:33] LABS: Basophils # 0.1 K/mm3 (0-0.2); Basophils % 1.4 % (0.1-2.0); Eosinophils # 0.2 K/mm3 (0.0-0.4); Eosinophils % 2.4 % (0.1-12.0); Hematocrit 43.5 % (37.0-47.0); Hemoglobin 14.2 g/dL (12.2-16.2); Mean Corpuscular HGB Conc 32.6 g/dL (31.8-35.4); Mean Corpuscular Hemoglobin 28.1 pg (27.0-31.2); Mean Corpuscular Volume 86.3 fl (81-99); Mean Platelet Volume 8.3 fl (7.4-10.4); Monocytes # 0.3 K/mm3 (0.1-1.0); Neutrophils # 3.4 K/mm3 (1.8-7.8); Neutrophils % 42.3 % (37.0-80.0); Platelet Count 289 K/mm3 (142-424); Red Blood Count 5.04 M/mm3 (4.20-5.40); Red Cell Distribution Width 14.7 % (11.5-17.5)
[2023-09-22 22:34] LABS: MANUAL DIFFERENTIAL MANUAL DIFFERENTIAL (MANUAL DIFF)
[2023-09-22 22:36] LABS: Chloride 105 mmol/L (98-107)
[2023-09-22 22:36] LABS: Appearance,Urine CLEAR (Clear); Bilirubin,Urine Negative (Negative); Blood, Urine 2+ (Negative); Color,Urine YELLOW (Yellow); Glucose,Urine (UA) Negative (Negative); Ketones,Urine Negative (Negative); Leukocyte Esterase,Urine Negative (Negative); Nitrate,Urine Negative (Negative); Protein,Urine Negative (Negative); Urobilinogen,Urine 0.2 EU/dl (0.2)
[2023-09-22 22:37] LABS: Potassium 3.8 mmoL/L (3.5-5.1); Sodium 141 mmol/L (136-145)
[2023-09-22 22:39] LABS: Alanine Aminotransferase 31 U/L (12-78); Albumin Level 4.6 g/dl (3.5-5.0); Alkaline Phosphatase 84 U/L (38-126); Anion Gap 12.8 mEq/L (5-15); Aspartate Amino Transferase 29 U/L (14-36); Bilirubin,Total 0.3 mg/dl (0.2-1.3); Blood Urea Nitrogen 11 mg/dl (7-17); Carbon Dioxide 27 mmol/L (22.0-30.0); Creatinine Clearance Estimated 131 mL/min (50-200); Estimated Glomerular Filt Rate 74 ml/min (>60); GFR (African American) 89 ML/MIN (>60); HCG Qualitative, Serum Negative (Negative); Lipase 109 U/L (23-300)
[2023-09-22 22:40] LABS: Albumin/Globulin Ratio 1.4 (1.1-1.8); Calcium 9.4 mg/dl (8.4-10.2); Globulin 3.2 g/dL (1.3-3.2); Glucose 101 mg/dl (74-100); Total Protein,Serum 7.8 g/dl (6.3-8.2)
[2023-09-22] MEDS: LACTATED RINGERS 1000ML 1,000 ML 999 ML IV (22:41)
[2023-09-22] MEDS: ONDANSETRON 4MG/2ML VIAL 4 MG IV (22:41)
[2023-09-22] MEDS: KETOROLAC 30MG/ML VIAL 15 MG IV (22:41)
[2023-09-22 23:20] LABS: Bacteria,Urine Trace /lpf; RBC,Urine 20-50 #/hpf (0-3); WBC,Urine Occasional #/hpf (0-3)
[2023-09-22] MEDS: 0.9 % SODIUM CHLORIDE 50 ML VIAL IV (23:21)
[2023-09-22] MEDS: SODIUM CHLORIDE 0.9% 10ML SYR (RAD ONLY) 10 ML IV (23:21)
[2023-09-22] MEDS: IOPAMIDOL-370 (76%);100ML BOTTLE 70 ML IV (23:21)
[2023-09-22 23:23] LABS: Eosinophils % 1 % (0-3); Lymphocytes % 59 % (10-50); Monocytes % 3 % (2-9); Neutrophils % 37 % (42-76); Platelet Estimate Normal; RBC Morphology Normal; Total Cells Counted 100
[2023-09-22 23:31] VITALS: BP 164/109; PULSE 110; O2SAT 99
--- NOTE | 2023-09-22 23:53 | ED_ITS ---
Discharge Plan Disposition Patient Disposition: Home, Self-Care Condition: Good Prescriptions Prescriptions: New ketorolac 10 mg tablet 10 mg PO Q8H PRN (Reason: pain) 1 Days Qty: 14 0RF No Action etonogestrel-ethinyl estradiol [NuvaRing] 0.12-0.015 mg/24 hr ring 1 vag ring vaginal Q4W Qty: 3 12RF Rx Instructions: leave in place for 3 weeks of a 4-week cycle mupirocin 2 % ointment 1 applic topical BID Qty: 15 0RF Referrals Follow up/Referrals: Yue Navarro APRN [Primary Care Provider] - See instructions Activity Restrictions/Add. Instructions Additional Instructions/Restrictions: You were evaluated at the emergency you were evaluated in the emergency department today. At this time, your CT scans are reassuring. Please follow-up closely with your primary care provider as well as your general surgeon. You have findings concerning for fatty liver disease on CT scan. Dietary changes, exercise, and weight loss can help treat this. Clinical Impressions Clinical Impression: Abdominal pain, RUQ, Hematuria, Fatty liver Instructions Patient Instructions: DI for Acute Abdominal Pain Discharge ED Provider: Marilyn Cole General Adult HPI General Chief complaint: Abdominal Pain Stated complaint: back, abd pain Time Seen by Provider: 09/22/23 22:22 Mode of Arrival: Family Vehicle Source of Information: Patient Limitations: No Limitations Description of Symptoms (Recalled from ER Triage Doc. by RN): 28 YO FEMALE PRESENTS with cc of continued abd pain following a cholecystectomy 1 month prior at this facility. Patient states the pain became unbearable tonight. States it is primarily located in her RUQ and radiates into her back. Consistent diarrhea. Increased pain with ambulation. History of Present Illness HPI narrative: This patient is a 28-year-old female with a history of recurrent upper abdominal pain, GERD, DREA, and cholecystectomy/03/31 presenting to the emergency department for evaluation with concern for worsened right upper quadrant abdominal pain radiating into her back. She states that the pain is unbearable tonight, and like it has been in the past. She has not had back pain like she is currently having at this time. It radiates around from her right upper quadrant. She denies any fevers or chills but does complain of nausea. She does complain of diarrhea. She denies any notable bowel symptoms. Pain is worse with ambulation as well as with taking a deep breath. No other concerns noted at this time, such as rashes. She is currently on her period. Related Data Previous Rx's Medication Instructions Recorded etonogestrel 0.12 mg-ethinyl 1 vag ring vaginal Q4W #3 ea 03/29/23 estradiol 0.015 mg/24 hr vaginal ring (NuvaRing) mupirocin 2 % topical ointment 1 applic topical BID #15 grams 09/20/23 ketorolac 10 mg tablet 10 mg PO Q8H PRN pain 1 day #14 09/23/23 tabs Allergies Allergy/AdvReac Type Severity Reaction Status Date / Time Penicillins Allergy Mild [facility]20[facility]23 09:[facility] Dis[facility]: The information contained in this section may have been updated after the patient was seen, as this information can be updated by other users. 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 Chronic hypertension affecting Otalgia of both ears Tinnitus History of gestational diabetes Migraine Depression Anxiety Gestational diabetes mellitus (GDM) Surgical History Hx laparoscopic cholecystectomy History of Family History Other Coronary artery disease Diabetes Social History Smoking Status: Unknown if ever smoked alcohol intake: never substance use type: denies use current occupational status: unemployed Travel in the last 8 weeks: None ROS Obtained: Yes All systems reviewed & no additional complaints except as documented Physical Exam General General appearance: alert, in no apparent distress and anxious Head Head exam: atraumatic and normocephalic Eye Eye exam: Present normal appearance, PERRL and EOMI ENT ENT exam: Present normal exam, normal oropharynx, mucous membranes moist and normal external ear exam Neck Neck exam: Present normal inspection, full ROM and trachea midline; Absent tenderness Chest Chest inspection: Present normal inspection and symmetric chest wall rise; Absent tenderness Respiratory Respiratory exam: Present normal lung sounds bilaterally; Absent respiratory distress, wheezes, stridor or accessory muscle use Cardiovascular Cardiovascular exam: Present normal rhythm and tachycardia Abdominal Exam Abdominal exam: Present soft and tenderness (RUQ, mild); Absent distention, guarding, rebound or rigidity Extremities Exam Extremities exam: Present normal inspection, full ROM and normal capillary refill; Absent tenderness or edema Back Exam Back exam: Present normal inspection and full ROM; Absent tenderness Neurological Exam Neurological exam: Present alert, oriented X3, CN II-XII intact, normal gait and other; Absent motor sensory deficit Psychiatric Psychiatric exam: Present anxious Skin Skin exam: Present warm, dry and other (No obvious rashes concerning for shingles) Medical Decision Making Medical Records Medical records reviewed: Yes I reviewed the patient's medical records. Isaac Inquiry Pt receiving controlled substance: No Vital Signs: 09/22/23 22:20 09/22/23 22:24 09/22/23 22:31 Temperature 98.3 F Temperature Source Oral Pulse Rate 100 H 110 H Pulse Rate [Right Brachial] 89 Respiratory Rate 22 Blood Pressure 145/112 H 157/103 H Blood Pressure [Right Arm] 163/100 H Blood Pressure Mean 122 112 Blood Pressure Mean [Right Arm] 121 Blood Pressure Source Blood Pressure Source [Right Arm] Automatic Cuff Blood Pressure Position Blood Pressure Position [Right Arm] Sitting 02 Sat by Pulse Oximetry 99 98 98 Oxygen Delivery Method Room Air Room Air Room Air 09/22/23 22:32 09/22/23 23:31 09/23/23 00:01 Temperature Temperature Source Pulse Rate 100 H 110 H 98 H Pulse Rate [Right Brachial] Respiratory Rate Blood Pressure 152/111 H 164/109 H 148/97 H Blood Pressure [Right Arm] Blood Pressure Mean 124 Blood Pressure Mean [Right Arm] Blood Pressure Source Blood Pressure Source [Right Arm] Blood Pressure Position Blood Pressure Position [Right Arm] 02 Sat by Pulse Oximetry 96 99 97 Oxygen Delivery Method Room Air 09/23/23 00:21 Temperature 98.0 F Temperature Source Oral Pulse Rate 92 H Pulse Rate [Right Brachial] Respiratory Rate 17 Blood Pressure 148/97 H Blood Pressure [Right Arm] Blood Pressure Mean Blood Pressure Mean [Right Arm] Blood Pressure Source Automatic Cuff Blood Pressure Source [Right Arm] Blood Pressure Position Sitting Blood Pressure Position [Right Arm] 02 Sat by Pulse Oximetry Oxygen Delivery Method Room Air Lab Data Lab results reviewed: Yes I reviewed the patient's lab results. Lab Results 09/22/23 21:48: Urine Color Yellow, Urine Appearance Clear, Urine pH 7.0, Ur Specific [place] 1.020, Urine Protein Negative, Urine Glucose (UA) Negative, Urine Ketones Negative, Urine Blood 2+, Urine Nitrate Negative, Urine Bilirubin Negative, Urine Urobilinogen 0.2, Ur Leukocyte Esterase Negative, Urine RBC 20- 50, Urine WBC Occasional, Ur Squamous Epith Cells 5-10, Urine Bacteria Trace 09/22/23 22:19: WBC 8.0, RBC 5.04, Hgb 14.2, Hct 43.5, MCV 86.3, MCH 28.1, MCHC 32.6, RDW 14.7, Plt Count 289, MPV 8.3, Neut % (Auto) 42.3, Lymph % (Auto) 50.0, [place] % (Auto) 4.0, Eos % (Auto) 2.4, Baso % (Auto) 1.4, Neut # (Auto) 3.4, Lymph # (Auto) 4.0, [place] # (Auto) 0.3, Eos # (Auto) 0.2, Baso # (Auto) 0.1, Total Counted 100, Neutrophils % (Manual) 37 L, Lymphocytes % (Manual) 59 H, Monocytes % (Manual) 3, Eosinophils % (Manual) 1, Platelet Estimate Normal, RBC Morphology Normal, Sodium 141, Potassium 3.8, Chloride 105, Carbon Dioxide 27, Anion Gap 12.8, BUN 11, Creatinine 0.90, Estimated Creat Clear 131, Estimated GFR 74, Est GFR ( Amer) 89, Glucose 101 H, Calcium 9.4, Total Bilirubin 0.3, AST 29, ALT 31, Alkaline Phosphatase 84, Total Protein 7.8, Albumin 4.6, Globulin 3.2, Albumin/Globulin Ratio 1.4, Lipase 109, Serum HCG, Qual Negative 09/22/23 22:19 09/22/23 22:19 Orders (Tests/Meds): ED MEDICATIONS Discontinued Medications Generic Name Dose Route Start Last Admin Trade Name Freq PRN Reason Stop Dose Admin Lactated Ringer's 1,000 mls @ 999 mls/hr 09/22/23 22:30 09/22/23 22:41 Lactated Ringer's 1000 Ml Bag IV 09/22/23 23:30 999 mls/hr .Q1H1M ONE Administration Iopamidol 70 ml 09/22/23 23:20 09/22/23 23:21 Iopamidol-370 (76%);100ml Bottle IV 09/22/23 23:21 70 ml ONCE ONE Administration Ketorolac Tromethamine 15 mg 09/22/23 22:30 09/22/23 22:41 Ketorolac 30mg/Ml Vial IV 09/22/23 22:31 15 mg ONCE ONE Administration Ondansetron HCl 4 mg 09/22/23 22:30 09/22/23 22:41 Ondansetron 4mg/2ml Vial IV 09/22/23 22:31 4 mg ONCE ONE Administration Sodium Chloride 50 ml 09/22/23 23:20 09/22/23 23:21 0.9 % Sodium Chloride 50 Ml Vial IV 09/22/23 23:21 50 ml ONCE ONE Administration Sodium Chloride 10 ml 09/22/23 23:20 09/22/23 23:21 Sodium Chloride 0.9% 10ml Syr (Rad Only) IV 10/22/23 23:19 10 ml NEEDED PRN Administration Maintain IV Site ORDERS Category Date Time Status CT abdomen pelvis w con Stat Cat Scan 09/22/23 22:[address] angio chest PE protocol Stat Cat Scan 09/22/23 22:30 Completed Complete Blood Count Auto Diff Stat Lab 09/22/23 22:19 Completed Comprehensive Metabolic Panel Stat Lab 09/22/23 22:19 Completed HCG Qualitative, Serum Stat Lab 09/22/23 22:19 Completed Lipase Stat Lab 09/22/23 22:19 Completed Urinalysis and Microscopic Stat Lab 09/22/23 21:48 Completed Medical Decision Narrative: In summary, this patient is a 28-year-old female presenting to the Emergency Department for evaluation of flareup of chronic right upper quadrant abdominal. Differential diagnoses considered include but are not limited to postoperative infection, biliary outflow obstruction, pancreatitis, shingles, PE, pneumonia, pleurisy, musculoskeletal strain. Ruling out the most morbid conditions drove assessment. I reviewed patient's past medical records and noted devious cholecystectomy and surgical evaluations as per HPI. On exam, the patient is well-appearing. No rashes concerning for shingles. Abdominal exam is relatively benign. Workup included CBC, CMP, lipase, test, urinalysis, CTA PE protocol, and CT abdomen pelvis with IV contrast. She was given a bolus of fluids as well as IV Toradol. I independently interpreted CT scans prior to the radiologist read and noted no obvious acute pathology such as bowel obstruction, postoperative abscess, or PE. Please see their read for final interpretation. Labs were obtained that demonstrated no acutely concerning abnormalities. On reassessment, patient had good improvement after administration of interventions above. She is resting comfortably. CT scans demonstrate fatty liver, so I notified the patient and counseled her on dietary changes and exercise. At this time based on reassuring workup and exam, I feel the patient is appropriate for discharge home with close follow-up with her primary care provider and general surgeon. She was given strict return precautions and was discharged after all questions were answered. I did give her prescription for Toradol, as she stated that this significantly helped her pain here. Critical Care Critical Care Time Critical Care Time: No
[2023-09-23 00:01] VITALS: BP 148/97; PULSE 98; O2SAT 97
[2023-09-23 00:21] VITALS: BP 148/97; PULSE 92; RESP 17; TEMP 36.7; O2SAT 97
== END 2023-09-23 00:23 | disposition home or self-care (01) ==
PROVIDERS: Emergency Provider Emergency Medicine; PCP Nurse Practitioner Family
DX: R10.11 Right upper quadrant pain (principal); R31.9 Hematuria, unspecified; K76.0 Fatty (change of) liver, not elsewhere classified
CPT/HCPCS: 71275; 74177; 80053; 81001; 83690; 84703; 85007; 85025; 96361; 96374; 96375; 99285; J2405; Q9967

== ENCOUNTER 2023-09-24 20:07 | Emergency (ER) | payer BC, SELFPAY ==
[2023-09-24 20:14] VITALS: BP 145/95; PULSE 113; RESP 19; TEMP 36.6; O2SAT 98; BMI 38.0
--- NOTE | 2023-09-24 20:25 | CT_ITS ---
PROCEDURE INFORMATION: Exam: CTA Abdomen and Pelvis With Contrast Exam date and time: 09/24/2023 9:06 PM Age: 28 years old Clinical indication: Abdominal pain; Other: B/l upper quadrant pain to back TECHNIQUE: Imaging protocol: Computed tomographic angiography of the abdomen and pelvis with contrast. Exam focused on the arteries. 3D rendering (Not supervised by radiologist): MIP and/or 3D reconstructed images were created by the technologist. Radiation optimization: All CT scans at this facility use at least one of these dose optimization techniques: automated exposure control; mA and/or kV adjustment per patient size (includes targeted exams where dose is matched to clinical indication); or iterative reconstruction. Contrast material: ISOUVE 370; Contrast volume: 100 ml; Contrast route: INTRAVENOUS (IV); COMPARISON: CT ABDOMEN PELVIS W CON 22/09/2023 22:57 FINDINGS: Aorta: No aortic dissection. Celiac trunk and mesenteric arteries: No occlusion or significant stenosis. Renal arteries: No occlusion or significant stenosis. Right iliac arteries: No occlusion or significant stenosis. Left iliac arteries: No occlusion or significant stenosis. Liver: Nonspecific periportal edema. Heterogeneous hepatic steatosis. Gallbladder and bile ducts: Gallbladder is absent. Pancreas: Unremarkable. No mass. No ductal dilation. Spleen: Unremarkable. No splenomegaly. Adrenal glands: Unremarkable. No mass. Kidneys and ureters: Unremarkable. No solid mass. No hydronephrosis. Stomach and bowel: The majority of the colon is collapsed, which is a nonspecific appearance that can correlate with colitis in the appropriate clinical setting. Bowel wall thickening of segments of the colon. Appendix: Unremarkable appendix. Intraperitoneal space: Unremarkable. No free air. No significant fluid collection. Lymph nodes: Unremarkable. No enlarged lymph nodes. Urinary bladder: Unremarkable. No mass. Reproductive: Unremarkable as visualized. Bones/joints: No acute fracture. Soft tissues: Tiny fat containing umbilical hernia. Other findings: Please see separate report for CT chest. IMPRESSION: 1. No aortic dissection. 2. Nonspecific periportal edema. Please exclude acute hepatitis clinically. 3. Nonspecific findings that suggest colitis.
--- NOTE | 2023-09-24 20:25 | CT_ITS ---
PROCEDURE INFORMATION: Exam: CTA Chest With Contrast Exam date and time: 09/24/2023 9:06 PM Age: 28 years old Clinical indication: Pain; Other: Back, b/l costal margin; Additional info: Pain to back, b/l costal margin pain also TECHNIQUE: Imaging protocol: Computed tomographic angiography of the chest with contrast. Exam focused on the arteries. 3D rendering (Not supervised by radiologist): MIP and/or 3D reconstructed images were created by the technologist. Radiation optimization: All CT scans at this facility use at least one of these dose optimization techniques: automated exposure control; mA and/or kV adjustment per patient size (includes targeted exams where dose is matched to clinical indication); or iterative reconstruction. Contrast material: ISOUVE 370; Contrast volume: 100 ml; Contrast route: INTRAVENOUS (IV); COMPARISON: CT ANGIO CHEST PE PROTOCOL 22/09/2023 22:57 FINDINGS: Pulmonary arteries: Evaluation of the pulmonary arteries is limited to the segmental arterial level due to poor bolus timing. Aorta: No aortic dissection. Lungs: Unremarkable. No consolidation. No masses. Pleural spaces: Unremarkable. No pneumothorax. No pleural effusion. Heart: Unremarkable. No cardiomegaly. No pericardial effusion. Lymph nodes: Unremarkable. No enlarged lymph nodes. Bones/joints: Unremarkable. No acute fracture. Soft tissues: Unremarkable. Other findings: Please see separate report for abdomen/pelvis. IMPRESSION: 1. No aortic dissection. 2. Evaluation of the pulmonary arteries is limited to the segmental arterial level due to poor bolus timing. Within the limitations of the study, no pulmonary emboli.
--- NOTE | 2023-09-24 20:26 | ECG_ITS ---
APPROVED REPORT Exam: Resting ECG HR:98 bpm ECG Measurements Heart Rate 98 AXES PA 151 P 47 QRSd 90 QRS -19 QT 357 T 5 QTc 412 Conclusion SINUS RHYTHM WITH OCCASIONAL VENTRICULAR PREMATURE COMPLEXES POSSIBLE LEFT ATRIAL ENLARGEMENT [-0.1mV P-WAVE IN V1/V2] POSSIBLE LEFT VENTRICULAR HYPERTROPHY [VOLTAGE CRITERIA PLUS LAE OR QRS WIDENING] ABNORMAL ECG Electronically signed by : DAVID CAM, 09/25/2023 00:02:42
--- NOTE | 2023-09-24 20:28 | HMH.EDGENADL ---
Discharge Plan Disposition Patient Disposition: Home, Self-Care Chief Complaint: Abdominal Pain Prescriptions Prescriptions: No Action etonogestrel-ethinyl estradiol [NuvaRing] 0.12-0.015 mg/24 hr ring 1 vag ring vaginal Q4W Qty: 3 12RF Rx Instructions: leave in place for 3 weeks of a 4-week cycle mupirocin 2 % ointment 1 applic topical BID Qty: 15 0RF ketorolac 10 mg tablet 10 mg PO Q8H PRN (Reason: pain) 1 Days Qty: 14 0RF Referrals Follow up/Referrals: Yue Navarro APRN [Primary Care Provider] - See instructions Activity Restrictions/Add. Instructions Additional Instructions/Restrictions: At this time and so you are safe for discharge home. New or worsening symptoms please do not hesitate to return the emergency department. You have a very mild transaminitis (elevated liver marker) and nonspecific periportal edema (mild swelling around your liver). Please follow-up with this week with your family doctor for repeat labs. Clinical Impressions Clinical Impression: Transaminitis Instructions Patient Instructions: DI for Acute Abdominal Pain Discharge ED Provider: Curtis Urbano General Adult HPI General Chief complaint: Abdominal Pain Stated complaint: abdominal,tightness in ribs Time Seen by Provider: 09/24/23 20:09 Mode of Arrival: Family Vehicle Source of Information: Patient Limitations: No Limitations Description of Symptoms (Recalled from ER Triage Doc. by RN): 28 yo female presents with continued abd pain/n/v; afebrile. Seen yesterday evening for same thing but states its in her right shoulder now. History of Present Illness HPI narrative: Patient is a 28-year-old female with past medical history of chronic GERD, upper abdominal pain status postcholecystectomy over a month ago, peptic ulcer disease who presents emergency department for evaluation of bilateral upper quadrant abdominal pain and bilateral inferior costal margin abdominal pain radiating through to her back. Patient was seen in the emergency department on Monday where workup was ultimately unremarkable and she was feeling better was discharged home. Patient has had nonbloody vomiting, right ear pain in addition to her continued bilateral upper quadrant and inferior costal margin pain. No other acute complaints at this time. Related Data Previous Rx's Medication Instructions Recorded etonogestrel 0.12 mg-ethinyl 1 vag ring vaginal Q4W #3 ea 03/29/23 estradiol 0.015 mg/24 hr vaginal ring (NuvaRing) mupirocin 2 % topical ointment 1 applic topical BID #15 grams 09/20/23 ketorolac 10 mg tablet 10 mg PO Q8H PRN pain 1 day #14 09/23/23 tabs Allergies Allergy/AdvReac Type Severity Reaction Status Date / Time Penicillins Allergy Mild Ver[facility]20[facility]23 09[facility] Disclaimer: The information contained in this section may have been updated after the patient was seen, as this information can be updated by other users. 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 Chronic hypertension affecting Otalgia of both ears Tinnitus History of gestational diabetes Migraine Depression Anxiety Gestational diabetes mellitus (GDM) Surgical History Hx laparoscopic cholecystectomy History of Family History Other Coronary artery disease Diabetes Social History Smoking Status: Unknown if ever smoked alcohol intake: never substance use type: denies use current occupational status: unemployed Travel in the last 8 weeks: None ROS Obtained: Yes Systems reviewed as appropriate & no additional complaints except as documented Physical Exam General General appearance: alert and in no apparent distress Head Head exam: atraumatic and normocephalic Eye Eye exam: Present PERRL ENT ENT exam: Present mucous membranes moist Neck Neck exam: Present normal inspection Chest Chest inspection: Present normal inspection and symmetric chest wall rise Respiratory Respiratory exam: Present normal lung sounds bilaterally; Absent respiratory distress Cardiovascular Cardiovascular exam: Present normal rhythm and tachycardia Abdominal Exam Abdominal exam: Present soft and tenderness (Bilateral upper quadrants, mild) Extremities Exam Extremities exam: Present normal inspection Neurological Exam Neurological exam: Present alert Psychiatric Psychiatric exam: Present normal affect Skin Skin exam: Present warm and dry Medical Decision Making Isaac Inquiry Pt receiving controlled substance: No Vital Signs: 09/24/23 20:14 Temperature 97.8 F Temperature Source Oral Pulse Rate [Right Brachial] 113 H Respiratory Rate 19 Blood Pressure [Right Arm] 145/95 H Blood Pressure Mean [Right Arm] 111 Blood Pressure Source [Right Arm] Automatic Cuff Blood Pressure Position [Right Arm] Sitting 02 Sat by Pulse Oximetry 98 Oxygen Delivery Method Room Air Lab Data Lab Results 09/24/23 20:40: WBC 11.4 H D, RBC 4.79, Hgb 13.6, Hct 41.3, MCV 86.3, MCH 28.4, MCHC 32.9, RDW 14.6, Plt Count 299, MPV 8.7, Neut % (Auto) 72.5, Lymph % (Auto) 22.3, [place] % (Auto) 3.8, Eos % (Auto) 0.8, Baso % (Auto) 0.6, Neut # (Auto) 8.3 H, Lymph # (Auto) 2.6, [place] # (Auto) 0.4, Eos # (Auto) 0.1, Baso # (Auto) 0.1, Sodium 141, Potassium 3.6, Chloride 106, Carbon Dioxide 26, Anion Gap 12.6, BUN 12, Creatinine 0.80, Estimated Creat Clear 158, Estimated GFR 84, Est GFR ( Amer) 102, Glucose 103 H, Calcium 9.4, Total Bilirubin 0.7, AST 88 H D, ALT 64 D, Alkaline Phosphatase 104, Troponin I < 0.01, Total Protein 7.4, Albumin 4.3, Globulin 3.1, Albumin/Globulin Ratio 1.4, Lipase 81, Serum HCG, Qual Negative 09/24/23 21:28: Urine Color Yellow, Urine Appearance Clear, Urine pH 6.5, Ur Specific [place] 1.015, Urine Protein Negative, Urine Glucose (UA) Negative, Urine Ketones Negative, Urine Blood 1+, Urine Nitrate Negative, Urine Bilirubin Negative, Urine Urobilinogen 0.2, Ur Leukocyte Esterase Negative, Urine RBC Occasional, Urine WBC Occasional, Ur Squamous Epith Cells Occasional, Urine Bacteria Trace 09/24/23 20:40 09/24/23 20:40 Orders (Tests/Meds): ED MEDICATIONS Generic Name Dose Route Start Last Admin Trade Name Freq PRN Reason Stop Dose Admin Sodium Chloride 10 ml 09/24/23 21:22 09/24/23 21:27 Sodium Chloride 0.9% 10ml Syr (Rad Only) IV 10/24/23 21:21 10 ml NEEDED PRN Administration Maintain IV Site Discontinued Medications Generic Name Dose Route Start Last Admin Trade Name Freq PRN Reason Stop Dose Admin Acetaminophen 1,000 mg 09/24/23 20:26 09/24/23 20:48 Acetaminophen 1,000mg/100ml Vial IV 09/24/23 20:27 1,000 mg ONCE ONE Administration Lactated Ringer's 1,000 mls @ 999 mls/hr 09/24/23 20:26 09/24/23 20:48 Lactated Ringer's 1000 Ml Bag IV 09/24/23 21:26 999 mls/hr .Q1H1M ONE Administration Iopamidol 100 ml 09/24/23 21:22 09/24/23 21:27 Iopamidol-370 (76%);100ml Bottle IV 09/24/23 21:23 100 ml ONCE ONE Administration Ketorolac Tromethamine 30 mg 09/24/23 20:26 09/24/23 20:48 Ketorolac 30mg/Ml Vial IV 09/24/23 20:27 30 mg ONCE ONE Administration Ondansetron HCl 4 mg 09/24/23 20:26 09/24/23 20:48 Ondansetron 4mg/2ml Vial IV 09/24/23 20:27 4 mg ONCE ONE Administration Sodium Chloride 50 ml 09/24/23 21:22 09/24/23 21:27 0.9 % Sodium Chloride 50 Ml Vial IV 09/24/23 21:23 50 ml ONCE ONE Administration ORDERS Category Date Time Status CT angio abdomen pelvis Stat Cat Scan 09/24/23 20:[address] angio chest - dissection Stat Cat Scan 09/24/23 20:25 Completed CBC w/Auto Diff [Complete Blood Count Auto Diff] Stat Lab 09/24/23 20:40 Completed CMP [Comprehensive Metabolic Panel] Stat Lab 09/24/23 20:40 Completed HCG Qualitative, Serum Stat Lab 09/24/23 20:40 Completed Lipase Stat Lab 09/24/23 20:40 Completed Trop I [Troponin I] Stat Lab 09/24/23 20:40 Completed Troponin I Q3H Lab 09/24/23 23:30 Ordered Troponin I Q3H Lab 09/25/23 02:30 Ordered UA [Urinalysis and Microscopic] Stat Lab 09/24/23 21:28 Completed EKG Request [ECG Request] Stat Y 09/24/23 20:26 Ordered ECG Data Tracing #1: Independently interpreted by me, rate is 98, rhythm is regular, axis is normal, no ST elevation in anatomical contiguous leads, sinus rhythm with isolated PVC. QTc 412. Medical Decision Narrative: In summary patient is a 28-year-old female past medical history described above who presents emergency department for repeat evaluation of bilateral inferior costal margin bilateral upper quadrant abdominal pain with associated nonbloody vomiting. Patient is hemodynamically stable nontoxic-appearing arrival, tachycardic, afebrile. Arterial pathology is a consideration given that she had CT of the abdomen pelvis with IV contrast as well as the chest with IV contrast which was unrevealing, this is less likely given her age and lack of cardiovascular risk factors however due to significant symptoms will be ordered. Differential also includes pinched nerves, cardiac chest pain, noncardiac chest pain, or referred pain from peptic ulcer disease, among others. Workup will be conducted with hematologic labs, CTA chest, abdomen, pelvis, urinalysis. Initial interventions include Toradol, Tylenol, Zofran, crystalloid bolus. Workup reviewed by me, hematologic labs are nonactionable, initial troponin undetectably low, mild transaminitis hCG negative. Urinalysis interpreted by me and not consistent with infection. CTA shows nonspecific periportal edema, CTA chest no acute pathology. Upon repeat evaluation patient continued to be well-appearing. Discussion was had at bedside as to the different causes of hepatitis. Patient will follow-up this week for repeat labs and continued evaluation. Critical Care Critical Care Time Critical Care Time: No
[2023-09-24] MEDS: KETOROLAC 30MG/ML VIAL 30 MG IV (20:48)
[2023-09-24] MEDS: ONDANSETRON 4MG/2ML VIAL 4 MG IV (20:48)
[2023-09-24] MEDS: LACTATED RINGERS 1000ML 1,000 ML 999 ML IV (20:48)
[2023-09-24] MEDS: ACETAMINOPHEN 1,000MG/100ML VIAL 1000 MG IV (20:48)
[2023-09-24 20:54] LABS: Basophils # 0.1 K/mm3 (0-0.2); Basophils % 0.6 % (0.1-2.0); Eosinophils # 0.1 K/mm3 (0.0-0.4); Eosinophils % 0.8 % (0.1-12.0); Hematocrit 41.3 % (37.0-47.0); Hemoglobin 13.6 g/dL (12.2-16.2); Lymphocytes # 2.6 K/mm3 (0.7-4.5); Lymphocytes % 22.3 % (10-50); Mean Corpuscular HGB Conc 32.9 g/dL (31.8-35.4); Mean Corpuscular Hemoglobin 28.4 pg (27.0-31.2); Mean Corpuscular Volume 86.3 fl (81-99); Mean Platelet Volume 8.7 fl (7.4-10.4); Monocytes # 0.4 K/mm3 (0.1-1.0); Monocytes % 3.8 % (1.7-9.3); Neutrophils # 8.3 K/mm3 (1.8-7.8); Neutrophils % 72.5 % (37.0-80.0); Platelet Count 299 K/mm3 (142-424); Red Blood Count 4.79 M/mm3 (4.20-5.40); Red Cell Distribution Width 14.6 % (11.5-17.5); White Blood Count 11.4 K/mm3 (4.8-10.8)
[2023-09-24 20:55] LABS: Chloride 106 mmol/L (98-107)
[2023-09-24 20:56] LABS: Potassium 3.6 mmoL/L (3.5-5.1); Sodium 141 mmol/L (136-145)
[2023-09-24 20:57] LABS: HCG Qualitative, Serum Negative (Negative)
[2023-09-24 20:58] LABS: Alanine Aminotransferase 64 U/L (12-78); Alkaline Phosphatase 104 U/L (38-126); Anion Gap 12.6 mEq/L (5-15); Aspartate Amino Transferase 88 U/L (14-36); Bilirubin,Total 0.7 mg/dl (0.2-1.3); Blood Urea Nitrogen 12 mg/dl (7-17); Carbon Dioxide 26 mmol/L (22.0-30.0); Creatinine Clearance Estimated 158 mL/min (50-200); Estimated Glomerular Filt Rate 84 ml/min (>60); GFR (African American) 102 ML/MIN (>60); Lipase 81 U/L (23-300)
[2023-09-24 20:59] LABS: Albumin Level 4.3 g/dl (3.5-5.0); Albumin/Globulin Ratio 1.4 (1.1-1.8); Calcium 9.4 mg/dl (8.4-10.2); Globulin 3.1 g/dL (1.3-3.2); Glucose 103 mg/dl (74-100); Total Protein,Serum 7.4 g/dl (6.3-8.2)
[2023-09-24 21:17] LABS: Troponin I < 0.01 ng/ml (0.00-0.034)
[2023-09-24] MEDS: IOPAMIDOL-370 (76%);100ML BOTTLE 100 ML IV (21:27)
[2023-09-24] MEDS: 0.9 % SODIUM CHLORIDE 50 ML VIAL IV (21:27)
[2023-09-24] MEDS: SODIUM CHLORIDE 0.9% 10ML SYR (RAD ONLY) 10 ML IV (21:27)
[2023-09-24 21:36] LABS: Microscopic, Urine URINE MICROSCOPIC (MICROSCOPIC)
[2023-09-24 21:40] LABS: Appearance,Urine CLEAR (Clear); Bilirubin,Urine Negative (Negative); Blood, Urine 1+ (Negative); Color,Urine YELLOW (Yellow); Glucose,Urine (UA) Negative (Negative); Ketones,Urine Negative (Negative); Leukocyte Esterase,Urine Negative (Negative); Nitrate,Urine Negative (Negative); PH,Urine 6.5 (5.0-8.5); Protein,Urine Negative (Negative); Specific Gravity, Urine 1.015 (1.005-1.030); Urobilinogen,Urine 0.2 EU/dl (0.2)
[2023-09-24 21:57] LABS: Bacteria,Urine Trace /lpf; RBC,Urine Occasional #/hpf (0-3); Squamous Epithelial Cell,Urine Occasional #/hpf (0-5); WBC,Urine Occasional #/hpf (0-3)
[2023-09-24 23:32] VITALS: BP 147/109; PULSE 98; RESP 18; TEMP 36.7; O2SAT 99
== END 2023-09-24 23:34 | disposition home or self-care (01) ==
PROVIDERS: Emergency Provider Emergency Medicine; PCP Nurse Practitioner Family
DX: R10.10 Upper abdominal pain, unspecified (principal); R74.01 Elevation of levels of liver transaminase levels; I49.3 Ventricular premature depolarization
CPT/HCPCS: 71275; 74174; 80053; 81001; 83690; 84484; 84703; 85025; 93005; 96361; 96374; 96375; 99285; J0131; J2405; Q9967

== ENCOUNTER 2023-09-25 11:48 | Outpatient (CLI) | payer BC, SELFPAY ==
[2023-09-25 13:04] LABS: Basophils % 0.6 % (0.1-2.0); Eosinophils # 0.1 K/mm3 (0.0-0.4); Eosinophils % 1.7 % (0.1-12.0); Hematocrit 42.8 % (37.0-47.0); Hemoglobin 13.9 g/dL (12.2-16.2); Lymphocytes % 40.5 % (10-50); Mean Corpuscular HGB Conc 32.4 g/dL (31.8-35.4); Mean Corpuscular Hemoglobin 27.9 pg (27.0-31.2); Mean Corpuscular Volume 86.2 fl (81-99); Mean Platelet Volume 8.8 fl (7.4-10.4); Monocytes # 0.3 K/mm3 (0.1-1.0); Monocytes % 5.4 % (1.7-9.3); Neutrophils # 2.5 K/mm3 (1.8-7.8); Neutrophils % 51.9 % (37.0-80.0); Platelet Count 285 K/mm3 (142-424); Red Blood Count 4.96 M/mm3 (4.20-5.40); Red Cell Distribution Width 14.6 % (11.5-17.5); White Blood Count 4.8 K/mm3 (4.8-10.8)
[2023-09-25 13:30] LABS: Ferritin 41.6 ng/ml (6.24-137)
[2023-09-25 13:44] LABS: Chloride 105 mmol/L (98-107); Potassium 3.9 mmoL/L (3.5-5.1); Sodium 140 mmol/L (136-145)
[2023-09-25 13:47] LABS: Alanine Aminotransferase 574 U/L (12-78); Albumin Level 4.3 g/dl (3.5-5.0); Albumin/Globulin Ratio 1.7 (1.1-1.8); Alkaline Phosphatase 169 U/L (38-126); Anion Gap 10.9 mEq/L (5-15); Aspartate Amino Transferase 706 U/L (14-36); Blood Urea Nitrogen 12 mg/dl (7-17); Calcium 9.5 mg/dl (8.4-10.2); Carbon Dioxide 28 mmol/L (22.0-30.0); Estimated Glomerular Filt Rate 74 ml/min (>60); GFR (African American) 89 ML/MIN (>60); Globulin 2.6 g/dL (1.3-3.2); Glucose 95 mg/dl (74-100); Total Protein,Serum 6.9 g/dl (6.3-8.2)
[2023-09-25 14:30] LABS: Gamma Glutamyl Transpeptidase 448 U/L (12-43)
[2023-09-26 09:22] LABS: HBsAg Screen Negative (Negative); HCV Ab Non Reactive (Non Reactive); Hep A Ab, IgM Negative (Negative); Hep B Core Ab, IgM Negative (Negative)
[2023-09-26 14:15] LABS: Mitochondrial (M2) Antibody <20.0 Units (0.0-20.0)
[2023-09-27 16:27] LABS: Antinuclear Antibodies, IFA Negative (.)
[2023-09-28 09:37] LABS: Hep A Ab, IGM Negative
== END 2023-09-25 23:59 | disposition home or self-care (01) ==
LOC: LAB 11:49
PROVIDERS: PCP Nurse Practitioner Family; Visit Provider Nurse Practitioner Family
DX: R16.0 Hepatomegaly, not elsewhere classified (principal); R74.01 Elevation of levels of liver transaminase levels
CPT/HCPCS: 36415; 80053; 80074; 82728; 82977; 85025; 86038; 86256; 86709

== ENCOUNTER 2023-10-04 09:24 | Outpatient (CLI) | payer BC, SELFPAY ==
[2023-10-04 10:19] LABS: Basophils # 0.1 K/mm3 (0-0.2); Basophils % 0.8 % (0.1-2.0); Eosinophils # 0.1 K/mm3 (0.0-0.4); Eosinophils % 1.1 % (0.1-12.0); Hematocrit 42.2 % (37.0-47.0); Hemoglobin 13.5 g/dL (12.2-16.2); Lymphocytes # 2.2 K/mm3 (0.7-4.5); Lymphocytes % 32.4 % (10-50); Mean Corpuscular HGB Conc 32.1 g/dL (31.8-35.4); Mean Corpuscular Volume 87.1 fl (81-99); Mean Platelet Volume 8.9 fl (7.4-10.4); Monocytes # 0.3 K/mm3 (0.1-1.0); Monocytes % 4.1 % (1.7-9.3); Neutrophils # 4.1 K/mm3 (1.8-7.8); Neutrophils % 61.6 % (37.0-80.0); Platelet Count 287 K/mm3 (142-424); Red Blood Count 4.84 M/mm3 (4.20-5.40); Red Cell Distribution Width 14.6 % (11.5-17.5); White Blood Count 6.7 K/mm3 (4.8-10.8)
[2023-10-04 11:11] LABS: Alanine Aminotransferase 111 U/L (12-78); Albumin Level 4.6 g/dl (3.5-5.0); Albumin/Globulin Ratio 1.7 (1.1-1.8); Alkaline Phosphatase 127 U/L (38-126); Amylase 48 U/L (30-110); Anion Gap 17.4 mEq/L (5-15); Aspartate Amino Transferase 35 U/L (14-36); Bilirubin,Total 0.7 mg/dl (0.2-1.3); Blood Urea Nitrogen 12 mg/dl (7-17); Calcium 9.7 mg/dl (8.4-10.2); Carbon Dioxide 27 mmol/L (22.0-30.0); Chloride 100 mmol/L (98-107); Cholesterol 202 mg/dl (140-200); Estimated Glomerular Filt Rate 84 ml/min (>60); GFR (African American) 102 ML/MIN (>60); Globulin 2.7 g/dL (1.3-3.2); Glucose 91 mg/dl (74-100); HDL Cholesterol 50 mg/dl (40-60); Lipase 100 U/L (23-300); Potassium 4.4 mmoL/L (3.5-5.1); Sodium 140 mmol/L (136-145); Total Protein,Serum 7.3 g/dl (6.3-8.2); Triglycerides 150 mg/dl (30-150); VLDL Cholesterol 30 mg/dL (0-40)
[2023-10-04 11:22] LABS: Direct LDL Cholesterol 125.71 mg/dL (100-129)
[2023-10-04 11:42] LABS: Thyroid Stimulating Hormone 2.37 uIU/mL (0.465-4.68)
[2023-10-12 03:12] LABS: 1,25 Dihydroxy Vitamin D 47 pg/mL (.); 1,25-Dihydroxy, Vitamin D-2 <10 pg/mL (.); 1,25-Dihydroxy, Vitamin D-3 46 pg/mL (.)
== END 2023-10-04 23:59 | disposition home or self-care (01) ==
LOC: LAB 09:24
PROVIDERS: PCP Nurse Practitioner Family; Visit Provider Nurse Practitioner Family
DX: Z00.00 Encounter for general adult medical examination without abnormal findings (principal); K85.10 Biliary acute pancreatitis without necrosis or infection; E66.9 Obesity, unspecified; Z68.36 Body mass index [BMI] 36.0-36.9, adult; Z79.899 Other long term (current) drug therapy
CPT/HCPCS: 36415; 80053; 80061; 82150; 82652; 83690; 84443; 85025

== ENCOUNTER 2023-10-11 09:46 | Outpatient (CLI) | payer BC, SELFPAY ==
--- NOTE | 2023-10-11 09:47 | US_ITS ---
PROCEDURE INFORMATION: Exam: US Right Breast, Complete US Left Breast, Complete Exam date and time: 10/11/2023 10:17 AM Age: 28 years old Clinical indication: Breast pain; Right; Additional info: Anxious about breast symptoms TECHNIQUE: Imaging protocol: Complete ultrasound of all four quadrants of the right breast and the retroareolar regions, including ultrasound of the axilla when performed. Complete ultrasound of all four quadrants of the left breast and the retroareolar regions, including ultrasound of the axilla when performed. COMPARISON: No relevant prior studies available. FINDINGS: ULTRASOUND: Breast ultrasound findings: Sonographic images of both breasts including the retroareolar regions, all 4 quadrants and the axilla do not demonstrate any solid or cystic masses. No architectural distortion or acoustical shadowing. No skin thickening or axillary adenopathy. IMPRESSION: No sonographic evidence of malignancy. If the breast pain is new and/or focal, diagnostic mammography would be indicated. ASSESSMENT: BI-RADS Category 1: Negative.
--- NOTE | 2023-10-11 09:53 | US_ITS ---
PROCEDURE: US TRANSVAGINAL CLINICAL INDICATION: LOWER ABD PAIN COMPARISON: CT CT ABDOMEN PELVIS W CON from 09/22/[address] ANGIO ABDOMEN PELVIS from 09/24/2023 FINDINGS: Transvaginal sonographic images of the pelvis were obtained. UTERUS: 8.3cm x 5.5cmx 3.7 cm anteverted with a combined endometrial thickness of 6.7mm. A scar is seen. LEFT OVARY: 3.0cmx1.7 cm.X1.8cm with a volume of 4.8ml. There are multiple, small peripheral follicles. The ovary appears polycystic. RIGHT OVARY: 4.5cmx 2.3cmx2.0cm with a volume of 10.8ml. There are multiple small peripheral follicles. The ovary appears polycystic. Both ovaries are seen and appear polycystic. Doppler flow to both ovaries are seen. There is no fluid in the cul-de-sac. IMPRESSION: 1. Anteverted uterus normal in shape and size. The endometrium is normal and homogeneous measuring 6.7 mm. 2. Both ovaries are seen and appear polycystic. The right ovary is slightly larger than the left ovary. 3. No fluid in the cul-de-sac. Dictated by: Wolf Arechiga MD 10/11/2023 17:02 Wolf Arechiga MD in [place] 10/11/2023 17:02
== END 2023-10-11 23:59 | disposition home or self-care (01) ==
LOC: RAD 09:47
PROVIDERS: PCP Nurse Practitioner Family; Visit Provider Nurse Practitioner Family
DX: N64.4 Mastodynia (principal)
CPT/HCPCS: 76641; 76830

== ENCOUNTER 2023-10-24 12:33 | Emergency (ER) | payer BC, SELFPAY ==
[2023-10-24 13:00] VITALS: BP 141/88; PULSE 108; RESP 20; TEMP 36.9; O2SAT 97; BMI 36.4
--- NOTE | 2023-10-24 13:06 | ED_ITS ---
Discharge Plan Disposition Patient Disposition: Home, Self-Care Condition: Good Prescriptions Prescriptions: No Action pantoprazole 40 mg tablet,delayed release (DR/EC) 40 mg PO DAILY Patient Comments: TAKE 1 TABLET BY MOUTH ONCE DAILY sertraline 50 mg tablet 50 mg PO DAILY Referrals Follow up/Referrals: Yue Navarro APRN [Primary Care Provider] - See instructions Activity Restrictions/Add. Instructions Additional Instructions/Restrictions: Use Calmoseptine as needed. Will need to get from pharmacy. Keep follow up with [facility]. Clinical Impressions Clinical Impression: Vaginal irritation Discharge ED Provider: Kisha Lugo [facility] [place] HPI General Stated complaint: uti Time Seen by Provider: 10/24/23 13:05 History of Present Illness Provider Complaint: Pt reports that she has had vaginal burning off and on since getting out of the hospital a month ago. She states that she sweats a lot and worries as it [place] when she voids. She denies taking anything for her symptoms. Related Data Home Medications Medication Instructions Recorded Confirmed fluoxetine 10 mg capsule 10 mg PO DAILY 10/24/23 10/24/23 pantoprazole 40 mg tablet,delayed 40 mg PO DAILY 10/24/23 10/24/23 release sertraline 50 mg tablet 50 mg PO DAILY 10/24/23 10/24/23 Allergies Allergy/AdvReac Type Severity Reaction Status Date / Time Penicillins Allergy Mild Verified 10/13/23 13:36 [facility] Disclaimer: The information contained in this section may have been updated after the patient was seen, as this information can be updated by other users. 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 Chronic hypertension affecting Otalgia of both ears Tinnitus History of gestational diabetes Migraine Depression Anxiety Gestational diabetes mellitus (GDM) on insulin Surgical History Hx laparoscopic cholecystectomy History of Family History Other Coronary artery disease Diabetes Social History Smoking Status: Unknown if ever smoked alcohol intake: never substance use type: denies use current occupational status: unemployed Travel in the last 8 weeks: None ROS Obtained: Yes All systems reviewed & no additional complaints except as documented Constitutional Constitutional: Reports system reviewed and no additional complaints, except as documented Eyes Eyes: Reports system reviewed and no additional complaints, except as documented ENT Ears, Nose, Mouth, and Throat: Reports system reviewed and no additional complaints, except as documented Cardiovascular Cardiovascular: Reports system reviewed and no additional complaints, except as documented Respiratory Respiratory: Reports system reviewed and no additional complaints, except as documented Gastrointestinal Gastrointestingal: Reports system reviewed and no additional complaints, except as documented Genitourinary Female Genitourinary: Reports system reviewed and no additional complaints, except as documented, Reports dysuria and Reports other (vaginal burning) Musculoskeletal Musculoskeletal: Reports system reviewed and no additional complaints, except as documented Integumentary/Breasts Skin/Breast: Reports system reviewed and no additional complaints, except as documented Neurologic Neurologic: Reports system reviewed and no additional complaints, except as documented Endocrine Endocrine: Reports system reviewed and no additional complaints, except as documented Hematologic/Lymphatic Henatologic/Lymphatic: Reports system reviewed and no additional complaints, except as documented Allergic/Immunologic Allergic/Immunologic: Reports system reviewed and no additional complaints, except as documented Physical Exam General General appearance: alert and in no apparent distress Head Head exam: atraumatic and normocephalic Eye Eye exam: Present normal appearance ENT ENT exam: Present normal exam and normal oropharynx Neck Neck exam: Present normal inspection Chest Chest inspection: Present normal inspection and symmetric chest wall rise Respiratory Respiratory exam: Present normal lung sounds bilaterally Cardiovascular Cardiovascular exam: Present regular rate, normal rhythm and normal heart sounds Abdominal Exam Abdominal exam: Present soft and normal bowel sounds Extremities Exam Extremities exam: Present normal inspection Back Exam Back exam: Present normal inspection Neurological Exam Neurological exam: Present alert and oriented X3 Psychiatric Psychiatric exam: Present normal affect and normal mood Skin Skin exam: Present warm, dry and intact Lymphatic Lymphatic Findings: no adenopathy Medical Decision Making Isaac Inquiry Pt receiving controlled substance: No Isaac was queried for this patient: No Lab Data Lab results reviewed: Yes I reviewed the patient's lab results.
[2023-10-24 13:15] VITALS: BP 141/88; PULSE 108; RESP 20; TEMP 36.9; O2SAT 97
[2023-10-24 13:16] LABS: Apearance,Urine Clear (Clear); Bilirubin,Urine Negative (Negative); Blood, Urine Trace (Negative); Color,Urine Yellow (Yellow); Glucose,Urine (UA) Negative (Negative); Ketones,Urine Negative (Negative); PH,Urine 5.5 (5.0-8.5); Protein,Urine Negative (Negative); UTC Leukocyte Esterase,Urine Negative (Negative); UTC Nitrate,Urine Negative (Negative); Urobilinogen,Urine 0.2 EU/dl (0.2)
== END 2023-10-24 13:17 | disposition home or self-care (01) ==
PROVIDERS: Emergency Provider Nurse Practitioner Family; PCP Nurse Practitioner Family
DX: N89.8 Other specified noninflammatory disorders of vagina (principal); R30.0 Dysuria
CPT/HCPCS: 81003; 99212; 99213; G0463

== ENCOUNTER 2023-10-26 14:57 | Outpatient (CLI) | payer BC, SELFPAY ==
--- NOTE | 2023-10-26 14:57 | MM_ITS ---
PROCEDURE INFORMATION: Exam: US Left Breast, Complete MG Bilateral Diagnostic Breast Tomosynthesis Exam date and time: 10/26/2023 2:46 PM Age: 28 years old Clinical indication: Breast pain TECHNIQUE: Imaging protocol: Complete ultrasound of all four quadrants of the left breast and the retroareolar regions, including ultrasound of the axilla when performed. Bilateral Diagnostic tomosynthesis and 2D mammography including computer-aided detection (CAD) when performed. Unilateral or bilateral exam. COMPARISON: US BREAST LT COMPLETE 10/11/2023 10:24 AM FINDINGS: MAMMOGRAPHY: Breast composition: There are scattered areas of fibroglandular density. Breast mammogram findings: There is no stellate mass, architectural distortion or suspicious microcalcifications in either breast to suggest malignancy. No skin thickening or axillary adenopathy. ULTRASOUND: Breast ultrasound findings: Sonographic images of the left breast including the retroareolar region, all 4 quadrants and the axilla do not demonstrate any solid or cystic masses. No architectural distortion or acoustical shadowing. No skin thickening or axillary adenopathy. IMPRESSION: No mammographic evidence of malignancy. Annual bilateral mammographic screening is recommended to commence at the age of 40 unless otherwise clinically indicated. ASSESSMENT: BI-RADS Category 1: Negative
== END 2023-10-26 23:59 | disposition home or self-care (01) ==
LOC: RAD 14:57
PROVIDERS: PCP Nurse Practitioner Family; Visit Provider Obstetrics & Gynecology
DX: N64.4 Mastodynia (principal)
CPT/HCPCS: 77062; 77066; G0279

== ENCOUNTER 2023-11-09 10:12 | Emergency (ER) | payer BC, SELFPAY ==
[2023-11-09 10:20] VITALS: PULSE 89; RESP 18; TEMP 36.6; O2SAT 98; BMI 36.3
[2023-11-09 10:35] LABS: UTC Strep Screen (Rapid) Positive (Negative)
--- NOTE | 2023-11-09 10:36 | EXP.UTC ---
Discharge Plan Disposition Patient Disposition: Home, Self-Care Condition: Good Prescriptions Prescriptions: New azithromycin 250 mg tablet 250 mg PO DIRECTED Qty: 6 0RF Rx Instructions: Take two (2) tablets on day #1, then one (1) tablet day #2 thru #5 No Action sumatriptan succinate 100 mg tablet 100 mg PO ONCE MDD 200 mg PRN (Reason: migraine headache) Qty: 10 6RF propranolol 40 mg tablet 40 mg PO BID Qty: 60 6RF pantoprazole 40 mg tablet,delayed release (DR/EC) 40 mg PO DAILY fluoxetine 10 mg capsule 10 mg PO DAILY Patient Comments: TAKE 1 CAPSULE BY MOUTH ONCE DAILY Referrals Follow up/Referrals: Yue Navarro APRN [Primary Care Provider] - See instructions Activity Restrictions/Add. Instructions Additional Instructions/Restrictions: Start antibiotics today be sure to take it as ordered with the full length of time although you should start feeling better in 24-48 hours. Change toothbrush and toothpaste 24-48 hours after starting antibiotics Tylenol or Motrin as needed for fever or pain Encourage fluids, water, Gatorade, Powerade, try cold fluids, popsicles, ice cream will make it feel better You are contagious for 24 hours. Avoid kissing anyone, no eating or drinking after anyone. You are contagious. Follow-up the ER for new or worsening symptoms or no noticeable improvement over the next 24-48 hours. Follow-up with PCP this week. Clinical Impressions Clinical Impression: Strep sore throat Instructions Patient Instructions: DI for Strep Throat Discharge ED Provider: Bernard ([facility])S[place]ia [facility] [place] General Stated complaint: sore throat, bilateral ear pain, cough Mode of Arrival: Ambulatory Source of Information: Patient Limitations: No Limitations Time Seen by Provider: 11/09/23 10:38 Description of Symptoms (Recalled from Triage Doc. by RN): Pt's symptoms are bilateral ear pain, sore throat, and cough. HEENT Symptoms (Recalled from RN notes): Yes Resp Symptoms (Recalled from RN notes): No Skin Symptoms (Recalled from RN notes): No MS Symptoms (Recalled from RN notes): No Functional Status (Recalled from RN notes): n/a History of Present Illness Provider Complaint: 28 yr old female presents for c/o bilateral ear pain, sore throat, and cough. Related Data Home Medications Medication Instructions Recorded Confirmed pantoprazole 40 mg tablet,delayed 40 mg PO DAILY 10/24/23 11/09/23 release fluoxetine 10 mg capsule 10 mg PO DAILY 11/09/23 11/09/23 Previous Rx's Medication Instructions Recorded propranolol 40 mg tablet 40 mg PO BID Migraine prevention 11/07/23 #60 tabs sumatriptan succinate 100 mg tablet 100 mg PO ONCE PRN migraine 11/07/23 headache #10 tabs azithromycin 250 mg tablet 250 mg PO DIRECTED #6 tabs 11/09/23 Allergies Allergy/AdvReac Type Severity Reaction Status Date / Time Penicillins Allergy Mild Verified 11/09/23 10:27 Worker's Comp Is this a Worker's Comp case?: No [facility] Disclaimer: The information contained in this section may have been updated after the patient was seen, as this information can be updated by other users. 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) Smoking Status: Unknown if ever smoked alcohol intake: never substance use type: denies use current occupational status: unemployed Travel in the last 8 weeks: None ROS Obtained: Yes All systems reviewed & no additional complaints except as documented Constitutional Constitutional: Reports system reviewed and no additional complaints, except as documented Eyes Eyes: Reports system reviewed and no additional complaints, except as documented ENT Ears, Nose, Mouth, and Throat: Reports system reviewed and no additional complaints, except as documented, Reports as per HPI, Reports nasal congestion, Reports nasal discharge and Reports sore throat Cardiovascular Cardiovascular: Reports system reviewed and no additional complaints, except as documented Respiratory Respiratory: Reports system reviewed and no additional complaints, except as documented Gastrointestinal Gastrointestingal: Reports system reviewed and no additional complaints, except as documented Musculoskeletal Musculoskeletal: Reports system reviewed and no additional complaints, except as documented Integumentary/Breasts Skin/Breast: Reports system reviewed and no additional complaints, except as documented Neurologic Neurologic: Reports system reviewed and no additional complaints, except as documented Allergic/Immunologic Allergic/Immunologic: Reports system reviewed and no additional complaints, except as documented Physical Exam General General appearance: alert and in no apparent distress Head Head exam: atraumatic Eye Eye exam: Present normal appearance and PERRL ENT ENT exam: Present mucous membranes moist Expanded ENT Exam Throat exam: Present tonsillar erythema, tonsillomegaly and tonsillar exudate Respiratory Respiratory exam: Present normal lung sounds bilaterally Cardiovascular Cardiovascular exam: Present regular rate and normal rhythm Neurological Exam Neurological exam: Present alert and oriented X3 Skin Skin exam: Present warm and intact Medical Decision Making Medical Records Medical records reviewed: Yes I reviewed the patient's medical records. Isaac Inquiry Pt receiving controlled substance: No Isaac was queried for this patient: No Vital Signs: 11/09/23 10:20 Temperature 97.8 F Temperature Source Oral Pulse Rate [Right Radial] 89 Respiratory Rate 18 02 Sat by Pulse Oximetry 98 Oxygen Delivery Method Room Air Lab Data Lab results reviewed: Yes I reviewed the patient's lab results. Lab Results 11/09/23 10:19: Strep Scn Rapid [facility] Positive A
[2023-11-09 10:54] VITALS: BP 126/66; PULSE 89; RESP 18; TEMP 36.6; O2SAT 98
== END 2023-11-09 10:54 | disposition home or self-care (01) ==
PROVIDERS: Emergency Provider Nurse Practitioner Family; PCP Nurse Practitioner Family
DX: J02.0 Streptococcal pharyngitis (principal); H92.03 Otalgia, bilateral; R05.9 Cough, unspecified
CPT/HCPCS: 87880; 99212; 99214; G0463

== ENCOUNTER 2023-11-21 11:32 | Outpatient (CLI) | payer BC, SELFPAY ==
[2023-11-22 16:56] LABS: H. pylori Stool Ag, EIA Negative (Negative)
[2023-11-28 00:05] LABS: Calprotectin, Fecal 7 ug/g (0-120)
== END 2023-11-21 23:59 | disposition home or self-care (01) ==
PROVIDERS: PCP Nurse Practitioner Family; Visit Provider Nurse Practitioner Acute Care
DX: R10.10 Upper abdominal pain, unspecified (principal); R19.7 Diarrhea, unspecified
CPT/HCPCS: 83993; 87338

== ENCOUNTER 2023-12-17 18:03 | Emergency (ER) | payer BC, SELFPAY ==
[2023-12-17 18:15] VITALS: BP 171/112; PULSE 80; RESP 18; TEMP 36.5; O2SAT 98; BMI 35.4
[2023-12-17 18:29] LABS: UTC Pregnancy Test, Urine Negative (Negative)
--- NOTE | 2023-12-17 18:32 | EXP.UTC ---
Discharge Plan Disposition Patient Disposition: Home, Self-Care Condition: Good Prescriptions Prescriptions: No Action buspirone 10 mg tablet 10 mg PO BID Qty: 60 1RF sumatriptan succinate 100 mg tablet 100 mg PO ONCE MDD 200 mg PRN (Reason: migraine headache) Qty: 10 6RF propranolol 40 mg tablet 40 mg PO BID Qty: 60 6RF pantoprazole 40 mg tablet,delayed release (DR/EC) 40 mg PO DAILY Referrals Follow up/Referrals: Yue Navarro APRN [Primary Care Provider] - See instructions Activity Restrictions/Add. Instructions Additional Instructions/Restrictions: Follow up with your regular doctor. 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 GO TO THE ER FOR ANY WORSENING SYMPTOMS Clinical Impressions Clinical Impression: Menorrhagia Instructions Patient Instructions: DI for Menorrhagia Print Language Print Language: Sinhala Discharge ED Provider: Izaiah Garcia [facility] General Stated complaint: change in menstrual cycle, preg test Mode of Arrival: Ambulatory Source of Information: Patient Limitations: No Limitations Time Seen by Provider: 12/17/23 18:32 Description of Symptoms (Recalled from Triage Doc. by RN): PATIENT REQUESTING TEST D/T IRREGULAR PERIOD HEENT Symptoms (Recalled from RN notes): No Resp Symptoms (Recalled from RN notes): No Skin Symptoms (Recalled from RN notes): No MS Symptoms (Recalled from RN notes): No Functional Status (Recalled from RN notes): WNL Related Data Home Medications ?Medication ?Instructions ?Recorded ?Confirmed pantoprazole 40 mg tablet,delayed 40 mg PO DAILY 10/24/23 11/13/23 release Previous Rx's ?Medication ?Instructions ?Recorded propranolol 40 mg tablet 40 mg PO BID Migraine prevention 11/07/23 #60 tabs sumatriptan succinate 100 mg tablet 100 mg PO ONCE PRN migraine 11/07/23 headache #10 tabs buspirone 10 mg tablet 10 mg PO BID #60 tabs 11/13/23 Allergies Allergy/AdvReac Type Severity Reaction Status Date / Time Penicillins Allergy Mild Verified 11/09/23 10:27 Worker's Comp Is this a Worker's Comp case?: No [facility] Disclaimer: The information contained in this section may have been updated after the patient was seen, as this information can be updated by other users. 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) Smoking Status: Never smoker second hand exposure: No alcohol intake: current alcohol intake frequency: holidays/special occasions only counseling given: No substance use type: denies use counseling given: No current occupational status: unemployed Travel in the last 8 weeks: None adopted: No caregiver/support person: Yes foster care: No household members: spouse housing: house lives independently: Yes marital status: number of children: 2 education level: high school current occupation: [employer] caffeine: Yes working smoke detector in home: Yes fire extinguisher in home: Yes firearms in home: Yes firearms unloaded and locked: Yes (locked up in a safe) do you feel safe at home: Yes victim of physical abuse: No victim of emotional abuse: No victim of sexual abuse: No would you like helpful sources: No ROS Obtained: Yes All systems reviewed & no additional complaints except as documented Constitutional Constitutional: Denies chills and Denies fever(s) Eyes Eyes: Denies eye discharge ENT Ears, Nose, Mouth, and Throat: Denies dizziness, Denies otalgia and Denies sore throat Cardiovascular Cardiovascular: Denies chest pain Respiratory Respiratory: Denies shortness of breath, Denies chest congestion, Denies cough, Denies stridor and Denies wheezing Gastrointestinal Gastrointestingal: Denies nausea or vomiting Musculoskeletal Musculoskeletal: Reports system reviewed and no additional complaints, except as documented and Denies arthralgias Integumentary/Breasts Skin/Breast: Denies rash Neurologic Neurologic: Denies dizziness and Denies paresthesias Allergic/Immunologic Allergic/Immunologic: Denies wheezing Physical Exam General General appearance: alert and in no apparent distress Head Head exam: atraumatic, normocephalic and normal inspection Eye Eye exam: Present normal appearance, PERRL and EOMI ENT ENT exam: Present normal exam, normal oropharynx, mucous membranes moist, TM's normal bilaterally and normal external ear exam Neck Neck exam: Present normal inspection, full ROM and trachea midline; Absent meningismus or lymphadenopathy Chest Chest inspection: Present normal inspection and symmetric chest wall rise; Absent tenderness Respiratory Respiratory exam: Present normal lung sounds bilaterally; Absent respiratory distress Cardiovascular Cardiovascular exam: Present regular rate and normal rhythm; Absent JVD Abdominal Exam Abdominal exam: Present soft and normal bowel sounds; Absent distention, tenderness or guarding Extremities Exam Extremities exam: Present normal inspection, full ROM and normal capillary refill; Absent calf tenderness Back Exam Back exam: Present normal inspection; Absent tenderness Neurological Exam Neurological exam: Present alert and oriented X3 Psychiatric Psychiatric exam: Present normal affect and normal mood Skin Skin exam: Present warm, dry, intact and normal color Lymphatic Lymphatic Findings: no adenopathy Medical Decision Making Medical Records Medical records reviewed: No I reviewed the patient's medical records. Isaac Inquiry Pt receiving controlled substance: No Vital Signs: 12/17/23 18:15 Temperature 97.7 F Temperature Source Oral Pulse Rate [Left Brachial] 80 Respiratory Rate 18 Blood Pressure [Left Arm] 171/112 H Blood Pressure Mean [Left Arm] 131 Blood Pressure Source [Left Arm] Automatic Cuff Blood Pressure Position [Left Arm] Sitting 02 Sat by Pulse Oximetry 98 Oxygen Delivery Method Room Air Lab Data Lab results reviewed: Yes I reviewed the patient's lab results. Lab Results 12/17/23 18:29: Tst Clinic Negative Orders (Tests/Meds): ORDERS Category Date Time Status Beta HCG, Qual [HCG Qualitative, Serum] Stat Lab 12/17/23 18:25 Received
[2023-12-17 18:46] LABS: HCG Qualitative, Serum Negative (Negative)
[2023-12-17 19:00] VITALS: BP 171/112; PULSE 80; RESP 18; TEMP 36.5; O2SAT 98
== END 2023-12-17 19:02 | disposition home or self-care (01) ==
PROVIDERS: Emergency Provider Nurse Practitioner Family; PCP Nurse Practitioner Family
DX: N92.0 Excessive and frequent menstruation with regular cycle (principal); Z32.02 Encounter for pregnancy test, result negative
CPT/HCPCS: 81025; 84703; 99212; 99213; G0463

== ENCOUNTER 2024-01-26 09:16 | Outpatient (CLI) | payer BC, SELFPAY | END 2024-01-26 23:59 | disposition home or self-care (01) | LOC: LAB.DROPOF 01-29 09:17 | PROVIDERS: PCP Student in an Organized Health Care Education/Training Program; Visit Provider Student in an Organized Health Care Education/Training Program | DX: J02.9 Acute pharyngitis, unspecified (principal) | CPT/HCPCS: 87070 ==

== ENCOUNTER 2024-01-30 09:46 | Outpatient (CLI) | payer BC, SELFPAY ==
[2024-01-30 10:14] LABS: Basophils % 0.6 % (0.1-2.0); Eosinophils # 0.1 K/mm3 (0.0-0.4); Eosinophils % 1.4 % (0.1-12.0); Hematocrit 42.7 % (37.0-47.0); Hemoglobin 13.6 g/dL (12.2-16.2); Lymphocytes # 2.3 K/mm3 (0.7-4.5); Lymphocytes % 32.9 % (10-50); Mean Corpuscular HGB Conc 31.9 g/dL (31.8-35.4); Mean Corpuscular Hemoglobin 28.4 pg (27.0-31.2); Mean Platelet Volume 8.4 fl (7.4-10.4); Monocytes # 0.3 K/mm3 (0.1-1.0); Monocytes % 4.1 % (1.7-9.3); Neutrophils # 4.2 K/mm3 (1.8-7.8); Neutrophils % 60.9 % (37.0-80.0); Platelet Count 265 K/mm3 (142-424); Red Blood Count 4.79 M/mm3 (4.20-5.40); Red Cell Distribution Width 14.5 % (11.5-17.5); White Blood Count 6.9 K/mm3 (4.8-10.8)
[2024-01-30 10:40] LABS: Alanine Aminotransferase 32 U/L (12-78); Albumin Level 4.6 g/dl (3.5-5.0); Alkaline Phosphatase 72 U/L (38-126); Amylase 46 U/L (30-110); Aspartate Amino Transferase 24 U/L (14-36); Bilirubin,Total 0.6 mg/dl (0.2-1.3); Blood Urea Nitrogen 16 mg/dl (7-17); Calcium 9.3 mg/dl (8.4-10.2); Carbon Dioxide 30 mmol/L (22.0-30.0); Chloride 105 mmol/L (98-107); Chol/HDL Ratio 4.1 (1-3.5); Cholesterol 189 mg/dl (140-200); Estimated Glomerular Filt Rate 84 ml/min (>60); GFR (African American) 101 ML/MIN (>60); Globulin 2.3 g/dL (1.3-3.2); Glucose 88 mg/dl (74-100); HDL Cholesterol 46 mg/dl (40-60); Lipase 72 U/L (23-300); Sodium 139 mmol/L (136-145); Total Protein,Serum 6.9 g/dl (6.3-8.2); Triglycerides 103 mg/dl (30-150); VLDL Cholesterol 21 mg/dL (0-40)
[2024-01-30 10:51] LABS: Direct LDL Cholesterol 115.01 mg/dL (100-129)
[2024-01-30 10:56] LABS: 25-OH Vitamin D, Total 26.9 ng/mL (30-100)
[2024-01-30 11:10] LABS: Thyroid Stimulating Hormone 2.14 uIU/mL (0.465-4.68)
[2024-01-30 11:30] LABS: Vitamin B12 312 pg/mL (239-931)
[2024-01-30 11:42] LABS: Hemoglobin A1C 5.5 % (4.0-6.0)
== END 2024-01-30 23:59 | disposition home or self-care (01) ==
LOC: LAB 09:47
PROVIDERS: PCP Nurse Practitioner Family; Visit Provider Nurse Practitioner Family
DX: Z00.00 Encounter for general adult medical examination without abnormal findings (principal); R10.12 Left upper quadrant pain
CPT/HCPCS: 36415; 80050; 80053; 80061; 82150; 82306; 82607; 83036; 83690; 84443; 85025

== ENCOUNTER 2024-03-01 16:21 | Outpatient (CLI) | payer BC, SELFPAY | END 2024-03-01 23:59 | disposition home or self-care (01) | LOC: LAB.DROPOF 03-04 16:22 | PROVIDERS: PCP Student in an Organized Health Care Education/Training Program; Visit Provider Student in an Organized Health Care Education/Training Program | DX: J02.9 Acute pharyngitis, unspecified (principal) | CPT/HCPCS: 87070; 87077; 87186 ==

== ENCOUNTER 2024-06-01 11:46 | Outpatient (CLI) | payer BC, SELFPAY ==
[2024-06-01 13:10] LABS: Hematocrit 43.2 % (37.0-47.0); Hemoglobin 13.9 g/dL (12.2-16.2); Mean Corpuscular HGB Conc 32.2 g/dL (31.8-35.4); Mean Corpuscular Volume 86.9 fl (81-99); Platelet Count 310 K/mm3 (142-424); Red Blood Count 4.97 M/mm3 (4.20-5.40); Red Cell Distribution Width 13.4 % (11.5-17.5); White Blood Count 7.8 K/mm3 (4.8-10.8)
[2024-06-01 14:05] LABS: Chloride 103 mmol/L (98-107); Potassium 4.5 mmoL/L (3.5-5.1); Sodium 142 mmol/L (136-145)
[2024-06-01 14:07] LABS: Blood Urea Nitrogen 17 mg/dl (7-17); Estimated Glomerular Filt Rate 98 ml/min (>60); GFR (African American) 118 ML/MIN (>60)
[2024-06-01 14:08] LABS: Alanine Aminotransferase 43 U/L (12-78); Albumin/Globulin Ratio 2.3 (1.1-1.8); Alkaline Phosphatase 86 U/L (38-126); Anion Gap 15.5 mEq/L (5-15); Aspartate Amino Transferase 32 U/L (14-36); Bilirubin,Total 0.4 mg/dl (0.2-1.3); Calcium 9.2 mg/dl (8.4-10.2); Carbon Dioxide 28 mmol/L (22.0-30.0); Globulin 2.2 g/dL (1.3-3.2); Glucose 80 mg/dl (74-100); Magnesium 1.9 mg/dl (1.6-2.3); Total Protein,Serum 7.2 g/dl (6.3-8.2)
[2024-06-01 20:09] LABS: 25-OH Vitamin D, Total 29.3 ng/mL (30-100)
[2024-06-01 22:03] LABS: Vitamin B12 335 pg/mL (239-931)
== END 2024-06-01 23:59 | disposition home or self-care (01) ==
LOC: LAB 11:53
PROVIDERS: PCP Nurse Practitioner Family; Visit Provider Nurse Practitioner Acute Care
DX: Z79.899 Other long term (current) drug therapy (principal); E55.9 Vitamin D deficiency, unspecified
CPT/HCPCS: 36415; 80053; 82306; 82607; 83735; 85027